=== PATIENT | female | born 1975 | race Caucasian/White ===

== ENCOUNTER 2019-01-28 16:29 | Inpatient (IN) ==
[2019-01-28] MEDS ORDERED: MORPHINE IV ONE ×2 (17:36→19:30)
[2019-01-28] MEDS ORDERED: ZOFRAN IV ONE (17:36)
[2019-01-28] MEDS ORDERED: NS 1,000 ML IV ONE (19:30)
[2019-01-28 19:42] LABS: HEMATOCRIT 39.8 % (37.0-47.0); HEMOGLOBIN 13.1 g/dL (12.0-16.0); MCH 31.3 PG (27-31); MCHC 32.9 g/dL (33-37); MPV 11.2 FL (7.4-10.4); RBC 4.19 XMIL (4.2-5.4); RDW 13.2 % (11.5-14.5); WBC 17.74 X1000 (4.8-10.8)
[2019-01-28 19:51] LABS: INR 0.97; PROTIME 13.7 Seconds (11.0-16.0)
[2019-01-28 19:52] LABS: AGAP 18; ALB/GLOB RATIO 1.5; ALBUMIN 4.1 g/dL (3.5-5.0); ALKALINE PHOSPHATASE 84 U/L (32-104); BUN 19 mg/dL (8-22); CALCIUM 8.8 mg/dL (8.8-10.2); CHLORIDE 100 mmol/L (98-107); COSMO 281; CREATININE 0.5 mg/dL (0.5-0.9); ESTIMATED GFR > 60; GLUCOSE 93 mg/dL (70-104); GOT 11 U/L (10-30); GPT 6 U/L (10-36); POTASSIUM 4.5 mmol/L (3.5-5.1); PTT 24.1 Seconds (22.3-41.8); SODIUM 140 mmol/L (136-145); TCO2 22 mmol/L (25-35); TOTAL BILIRUBIN 0.98 mg/dL (0.20-1.00); TOTAL PROTEIN 6.9 g/dL (6.3-8.3)
[2019-01-28 19:54] LABS: D-DIMER 0.99 ug/mLFEU (0.0-0.52)
[2019-01-28] MEDS ORDERED: CLINDAMYCIN 600 MG/D5W 600 MG/50 ML IVPB IV ONE (23:00)
[2019-01-28] MEDS ORDERED: DILAUDID IV ONE (23:35)
[2019-01-28] MEDS ORDERED: CLINDAMYCIN 600 MG/NS 600 MG/50 ML IVPB IV ONE (23:49)
--- NOTE | 2019-01-29 01:49 | PROVIDER DOCUMENTATION ---
This chart was entered by Effie Rayo Scribe, acting as scribe for Jose Rafael Gongora MD. HPI-Musculoskeletal Pain/Inj - GENERAL Chief Complaint: Edema Stated Complaint: PT HAS HAD PAST STROKE/ARM SWELLING Time Seen by Provider: 01/28/19 16:47 Source: patient - HX OF PRESENT ILLNESS-MUSKULOSKELTAL Nature of Presenting Problem: 43 yof presents to er w/co pt reports pain and swelling in rt arm x 3 days. pt has hx of stroke 08/2018 that has affected the right side of her body, and hx cerebral palsy. Quality of Pain: reports: other (swelling, pain) Severity in ED: severe Onset/Duration: 3 days ago Timing: still present Review of Systems - Adult - REVIEW OF SYSTEMS - ADULT Constitutional: reports: no symptoms reported Eyes: reports: no symptoms reported Ears, Nose, Mouth & Throat: reports: no symptoms reported Cardiovascular: reports: no symptoms reported Respiratory: reports: no symptoms reported Gastrointestinal: reports: no symptoms reported Genitourinary: reports: no symptoms reported Musculoskeletal: reports: see HPI, joint pain (rt arm chronic spasticity), joint swelling (rt proximal forearm and elbow). denies: back pain, muscle weakness, neck pain Integumentary: reports: no symptoms reported Neurological: reports: no symptoms reported Psychiatric: reports: no symptoms reported Endocrine: reports: no symptoms reported Hematologic/Lymphatic: reports: no symptoms reported Allergic/Immunologic: reports: no symptoms reported All Other Systems: Reviewed and Negative Past History - Adult - PAST MEDICAL HISTORY-ADULT Review of Records: reports: Old Records Reviewed, Nursing Assessment Review, Medications Reviewed, Social history reviewed & non-contributory. Major Childhood Illnesses: reports: denies history Cardiovascular: reports: HTN Respiratory: reports: denies history Gastrointestinal: reports: denies history Obstetrical/Gynecological: reports: denies history Genitourinary: reports: denies history Musculoskeletal: reports: denies history Neurological: reports: CVA Psychiatric: reports: anxiety, bipolar, depression Endocrine/Immune: reports: denies history Other Conditions: reports: denies history - PRIOR SURGERIES/PROCEDURES Surgical/Procedure History: reports: orthopedic (extremity) (bilat ankles, left hip) - IMMUNIZATION STATUS Childhood Immunizations: See Nurse Assessment Flu Vaccine: See Nurse Assessment - FAMILY HISTORY Family History: reviewed, not pertinent - SOCIAL HISTORY Smoking: other (former) Substance Use: none/never Physical Exam-Injury Related - Physical Exam-Injury Related Initial Vital Signs Reviewed: Yes General Appearance: alert, severe distress Eyes: PERRL/EOMI, pink conjunctivae Head, Ears, Nose, Mouth & Throat: normocephalic/atraumatic, moist mucous membra deandre Neck: non-tender, full range of motion, supple, normal inspection Respiratory: chest non-tender, lungs clear, normal breath sounds Cardiovascular: tachycardia. negative: bradycardia, extra beats, friction rub Chest/Breast: deferred Abdominal Exam: normal bowel sounds, non tender, soft Female Genitalia/Pelvic Exam: deferred Extremity: inflammation (rt forearm , arm and elbow), swelling (rt forearm , arm and elbow), tenderness (rt forearm , arm and elbow), other. negative: normal range of motion (spasticity in right upper extremity), deformity, erythema Integumentary: normal color, warm/dry Neurologic: motor weakness (chronic right sided spastic paraparesis) Psych/Mental Status: oriented x 3, other (hx cerebal palsy) - Glascow Coma Score Suellen Total: 15 Progress - PLAN OF CARE/RESULTS Progress/Plan/Lab Results: Vital Signs - 8 hr 01/28/19 18:00 01/28/19 18:30 01/28/19 19:00 Temperature Pulse Rate 128 H 127 H 128 H Respiratory Rate 9 L 14 11 L Blood Pressure O2 Sat by Pulse Oximetry 98 96 98 01/28/19 19:30 01/28/19 19:37 01/28/19 20:00 Temperature Pulse Rate 132 H 135 H 131 H Respiratory Rate 17 16 Blood Pressure 142/91 O2 Sat by Pulse Oximetry 97 97 97 01/28/19 20:03 01/28/19 20:30 01/28/19 20:33 Temperature Pulse Rate 127 H 120 H 122 H Respiratory Rate 12 9 L 13 Blood Pressure 133/97 130/98 O2 Sat by Pulse Oximetry 98 98 98 01/28/19 21:00 01/28/19 21:03 01/28/19 21:30 Temperature Pulse Rate 123 H 127 H 128 H Respiratory Rate Blood Pressure 138/100 O2 Sat by Pulse Oximetry 98 98 98 01/28/19 21:33 01/28/19 22:00 01/28/19 22:03 Temperature Pulse Rate 115 H 138 H Respiratory Rate Blood Pressure 138/107 137/97 O2 Sat by Pulse Oximetry 100 91 L 01/28/19 22:30 01/28/19 22:33 01/28/19 22:45 Temperature Pulse Rate 125 H 118 H 122 H Respiratory Rate Blood Pressure 128/89 135/95 O2 Sat by Pulse Oximetry 94 L 94 L 95 01/28/19 22:48 01/28/19 22:49 01/28/19 23:00 Temperature 98.6 F Pulse Rate 119 H 120 H 117 H Respiratory Rate 18 Blood Pressure 135/95 135/95 O2 Sat by Pulse Oximetry 95 94 L 96 01/28/19 23:03 01/28/19 23:30 01/28/19 23:33 Temperature Pulse Rate 117 H 119 H 112 H Respiratory Rate Blood Pressure 138/97 128/89 O2 Sat by Pulse Oximetry 96 95 93 L Laboratory Results - last 24 hr 01/28/19 01/28/19 01/28/19 19:30 19:30 19:30 WBC 17.74 H RBC 4.19 L Hgb 13.1 Hct 39.8 MCV 95.0 MCH 31.3 H MCHC 32.9 L RDW Std Deviation 13.2 Plt Count 343 MPV 11.2 H PT 13.7 INR 0.97 PTT (Actin FS) 24.1 D-Dimer, Quantitative 0.99 H Sodium 140 Potassium 4.5 Chloride 100 Carbon Dioxide 22 L Anion Gap 18 BUN 19 Creatinine 0.5 Estimated GFR/1.73 m2 > 60 BUN/Creatinine Ratio 38 Glucose 93 Calculated Osmolality 281 Calcium 8.8 Total Bilirubin 0.98 AST 11 ALT 6 L Alkaline Phosphatase 84 Total Protein 6.9 Albumin 4.1 Globulin 2.8 Albumin/Globulin Ratio 1.5 Plasma Lactate 01/28/19 22:29 WBC RBC Hgb Hct MCV MCH MCHC RDW Std Deviation Plt Count MPV PT INR PTT (Actin FS) D-Dimer, Quantitative Sodium Potassium Chloride Carbon Dioxide Anion Gap BUN Creatinine Estimated GFR/1.73 m2 BUN/Creatinine Ratio Glucose Calculated Osmolality Calcium Total Bilirubin AST ALT Alkaline Phosphatase Total Protein Albumin Globulin Albumin/Globulin Ratio Plasma Lactate 1.8 Orders Category Date Time Status CBC WITH NO DIFF [HEME] Stat Lab 01/28/19 19:30 Completed COMPREHENSIVE METABOLIC PANEL [CHEM] Stat Lab 01/28/19 19:30 Completed D-DIMER [COAG] Stat Lab 01/28/19 19:30 Completed LACTATE, PLASMA [CHEM] Stat Lab 01/28/19 22:29 Completed PT [PROTIME WITH INR] [COAG] Stat Lab 01/28/19 19:30 Completed PTT [COAG] Stat Lab 01/28/19 19:30 Completed 0.9% Sodium Chloride Inj [Ns] 1,000 ml Med 01/28/19 19:30 Discontinued IV 999 mls/hr Clindamycin 600 mg/D5w Med 01/28/19 23:00 Discontinued 600 mg in 50 ml IV NOW Hydromorphone [Dilaudid] Med 01/28/19 23:35 Discontinued 1 mg IV NOW ONE Morphine Med 01/28/19 17:36 Discontinued 2 mg IV NOW ONE Morphine Med 01/28/19 19:30 Discontinued 2 mg IV NOW ONE Ondansetron [Zofran] Med 01/28/19 17:36 Discontinued 4 mg IV NOW ONE Venous U/S Right Arm Stat Ther 01/28/19 17:28 Completed Result Diagrams: 01/28/19 19:30 01/28/19 19:30 - ULTRASOUND (By Radiology) 1 US Study: Upper Ext (No evidence of DVT in right upper extremity (as per electrocardiogram technician); pending official radiologist report) - CONSULTS/PCP/HOSPITALIST Notification #1 *Consult/PCP/Hospitalist*: Dr. Bridges Time Discussed: 00:58 Consult Disposition: Admit Departure - Departure Date of Disposition Decision: 01/29/19 Time of Disposition Decision: 00:59 DIAGNOSIS: Swelling of arm Cellulitis Qualifiers: Site of cellulitis: extremity Site of cellulitis of extremity: upper extremity Laterality: right Qualified Code(s): L03.113 - Cellulitis of right upper limb Sepsis Qualifiers: Sepsis type: sepsis due to unspecified organism Qualified Code(s): A41.9 - Sepsis, unspecified organism Disposition: ADMITTED INPATIENT 09 Certified Medical Emergency: Emergent Condition: Serious - Critical Care Note This patient required my direct & personal management of CC.: No Attestation - Physician/ MALA Attestation Patient care was provided by Advanced Practice Provider:: No The physician spent face to face time with patient:: Yes Advanced Practice Provider documentation review:: Supervising physician onsite and consulted in the evaluation and care of this patient. The physician did have a face to face encounter with the patient. This chart was documented by the indicated scribe, (Effie Rayo Scribe) and accurately reflects the services I performed and decisions made by Rolan reyes Kofi X., MD, as attested by the provider's signature.
[2019-01-29] MEDS ORDERED: TYLENOL PO PRN (06:49)
[2019-01-29] MEDS ORDERED: ZOFRAN IV PRN (06:49)
[2019-01-29 07:04] LABS: BASO# 0.03 X1000 (0.0-0.2); BASO% 0.3 % (0.0-0.8); EOS# 0.17 X1000 (0.0-0.7); EOS% 1.9 % (0.0-10.0); HEMATOCRIT 33.6 % (37.0-47.0); HEMOGLOBIN 10.7 g/dL (12.0-16.0); LYMPH# 2.04 X1000 (1.2-3.4); LYMPH% 22.3 % (20.5-51.1); MCH 30.7 PG (27-31); MCHC 31.8 g/dL (33-37); MCV 96.6 FL (81-99); MONO# 0.77 X1000 (0.11-0.59); MONO% 8.4 % (1.7-9.3); MPV 10.5 FL (7.4-10.4); NEUT# 6.13 X1000 (1.4-6.5); NEUT% 67.1 % (42.2-75.2); PLT 306 X1000 (130-400); RBC 3.48 XMIL (4.2-5.4); RDW 13.1 % (11.5-14.5); WBC 9.14 X1000 (4.8-10.8)
[2019-01-29] MEDS: PROTONIX IV SCH (07:23)
[2019-01-29] MEDS: NS 1,000 ML IV SCH ×2 (07:23→17:37)
[2019-01-29 07:35] LABS: AGAP 11; BUN 16 mg/dL (8-22); CALCIUM 9.1 mg/dL (8.8-10.2); CHLORIDE 105 mmol/L (98-107); COSMO 284; CREATININE 0.5 mg/dL (0.5-0.9); ESTIMATED GFR > 60; GLUCOSE 122 mg/dL (70-104); POTASSIUM 4.4 mmol/L (3.5-5.1); SODIUM 141 mmol/L (136-145); TCO2 25 mmol/L (25-35)
[2019-01-29 07:36] LABS: URINE SOURCE CATH
[2019-01-29 07:39] LABS: BILIRUBIN URINE NEGATIVE (NEGATIVE); BLOOD URINE SMALL (NEGATIVE); COLOR ORANGE; GLUCOSE URINE NEGATIVE (NEGATIVE); KETONE URINE NEGATIVE (NEGATIVE); LEUKOCYTES URINE MODERATE (NEGATIVE); NITRITE URINE POSITIVE (NEGATIVE); PH URINE 6.5; PROTEIN URINE 30 mg/dL (NEGATIVE); SP GRAVITY URINE 1.025; TURBIDITY URINE TURBID (CLEAR); UROBILINOGEN URINE NORMAL (NORMAL)
[2019-01-29 07:42] LABS: UR EPITHELIAL CELLS <10 /HPF (<10); URINE BACTERIA 3+ /HPF; URINE WBC 20-40 /HPF (<10)
[2019-01-29] MEDS: MORPHINE IV PRN ×3 (07:42→17:37)
[2019-01-29 08:08] LABS: URINE CASTS NONE SEEN; URINE CRYSTALS CA OXALATE PRESENT; URINE SMALL ROUND CELLS NONE SEEN; URINE YEAST NONE SEEN
--- NOTE | 2019-01-29 08:28 | HISTORY AND PHYSICAL ---
PRIMARY CARE PROVIDER: KORINA Nelson DATE AND TIME: 01/29/2019 at 0545. CHIEF COMPLAINT: Right arm and right leg pain and swelling. HISTORY OF PRESENT ILLNESS: Ms. Pereira is a 43-year-old female who does have a history of cerebral palsy as well as a stroke that has affected her right side. The patient does have loss of most of her motor control as well as some decreased sensation on her right upper and lower extremities. This has also affected her speech. The patient does have some expressive aphasia. She is able to speak simple 1 or 2 word answers, though does have difficulty with expressing herself when it comes to saying more than a few words at a time. According to the ER note as well as what I gathered from the patient, a few days ago, she did begin to have swelling and pain in her right upper extremity and right lower extremity. She did report to me that her right leg does stay more swollen than her left, though it is more swollen than usual. She denied any headache, dizziness, shortness of breath or chest pain. She denies any abdominal pain, nausea, vomiting or diarrhea. The patient does report that due to her stroke, she is not able to control her bladder or bowels. She denied any fever, body aches or chills. Upon evaluation in the ER, the patient was found to be tachycardic upon arrival. Initial vitals were temperature of 99, heart rate 150, respirations 18, blood pressure was 135/99, oxygen saturation was 96%. The patient did have a low grade fever, though was also in quite a bit of pain upon arrival as well. She was noted to have leukocytosis with a white blood cell count of 17,740. Her D-dimer was slightly elevated at 0.99. They did perform a venous Doppler or her right upper extremity which was reportedly negative for DVT. The patient does have warmth, swelling, pain and some slight erythema noted to her right upper extremity. She does have swelling, pain and tenderness noted to her right lower extremity. The patient reports this is mainly in her thigh area. At this time, the patient will be admitted for further treatment and evaluation of right upper extremity cellulitis. REVIEW OF SYSTEMS: A 14-point review of systems was conducted with the patient, and all were negative except for pertinent positives mentioned in the above HPI. PAST MEDICAL HISTORY: 1. History of cerebral palsy. 2. History of a stroke in 08/2018. The patient stated that this was an ischemic stroke. She denied having any known stroke or bleeding in her brain. 3. Anxiety. 4. Depression. 5. Bipolar. 6. Hypertension. PAST SURGICAL HISTORY: 1. Left hip surgery. 2. Bilateral ankle surgery. SOCIAL HISTORY: The patient is a former smoker. There is no known alcohol or illicit drug use. FAMILY HISTORY: Unable to be obtained at this time due to the patient's current condition. The patient is alert and oriented x4, though she does have difficulty with speech. ALLERGIES: The patient has allergy to latex and penicillins. HOME MEDICATIONS: 1. Aspirin 81 mg p.o. daily. 2. Calcium carbonate 600 mg p.o. daily. 3. Diazepam 5 mg p.o. b.i.d. 4. Folic acid 0.4 mg p.o. daily. 5. Melatonin 3 mg p.o. daily. 6. Vitamin B1 100 mg 2 tablets p.o. daily. DIAGNOSTIC DATA: White blood cell count is 17,740, hemoglobin 13.1, hematocrit 39.8, platelet count is 343. PT is 13.7. INR is 0.97. PTT is 24.1. D-dimer is 0.99. Sodium is 140, potassium 4.5, chloride 100, serum bicarb is 22, BUN is 19, creatinine 0.5 with a GFR greater than 60, glucose 93, calcium 8.8. Liver function tests within normal limits. Plasma lactate was 1.8. Venous Doppler of the right upper extremity showed no findings of a DVT. This was per the ER physician's documentation and verbal report. Pending diagnostic studies at this time are blood cultures, urinalysis, venous Doppler of the right lower extremity and EKG. PHYSICAL EXAMINATION: VITAL SIGNS: Temperature is 97.7, heart rate 98, respirations 20, blood pressure is 103/70 with a MAP of 81, oxygen saturation is 96% on room air. GENERAL: Ms. Pereira is a pleasant 43-year-old female. She was resting on the ER stretcher. She was in no acute distress. She was awake and alert. The patient does have some difficulty with speech, though is able to answer best with short 1 to 2 word answers. She can answer questions appropriately. She was alert and oriented to person, place, time and situation. HEENT: Head is atraumatic and normocephalic. Pupils are equal, round and reactive to light, were 3 mm bilaterally and brisk. Oral mucosa is moist. Oropharynx was clear. NECK: Supple. Trachea midline. CARDIOVASCULAR: The patient has normal S1 and S2. No murmurs, gallops or rubs appreciated, though slightly tachycardic rate that is regular. PULMONARY: The patient has symmetrical chest expansion bilaterally. Lung sounds are clear to auscultation in bilateral full rascon. ABDOMEN: Soft, nontender and nondistended. Bowel sounds are present in all 4 quadrants, were slightly hypoactive. EXTREMITIES: The patient does have some contracture noted to the lower part of her right upper extremity mainly in her hand and wrist, though her right upper extremity in the humeral area is significantly more swollen than the right. This area does have warmth, tenderness and some slight erythema noted. Also, her right lower extremity is more swollen than her left as well. The patient states that this is present usually but is worse than normal. She does have some warmth, tenderness and pain noted to her thigh area, though she does have loss of some motor control and movement in her right side as well as some decreased sensation secondary to her stroke. The patient does have total motor control and movement on her left side, and she does have normal sensation on this side as well. Radial pulses were 2+ bilaterally. Pedal pulses were 2+ bilaterally as well. INTEGUMENTARY: The patient's skin is pink, warm and dry. NEUROLOGICAL: The patient is alert and oriented to person, place, time and situation. As perviously mentioned, she has had a stroke and does have deficits on her right side of some loss of some motor control and movement. She also does have decreased sensation on her right side. Her left side is not affected and does not have any deficits noted. The patient is able to speak best with 1 to 2 word answers. She does tend to have more difficulty with expressive aphasia with longer sentences, though she was able to answer questions appropriately. ASSESSMENT AND PLAN: 1. Right upper extremity cellulitis. For treatment of this, we have placed the patient on antibiotic with clindamycin 600 mg IV q.8 hours. We are awaiting blood cultures at this time. We have also placed her with probiotic of Culturelle as well. Venous Doppler of the right upper extremity was negative for any DVT, though the patient is having some swelling, pain and tenderness in her right lower extremity as well. Her D-dimer was elevated. We will go ahead and obtain a venous Doppler of this extremity also, and we are awaiting those results. 2. Leukocytosis. This is likely related to her cellulitis in her right upper arm, though we are going to order a urinalysis for further evaluation. The patient unfortunately does have loss of control of the bladder and bowels secondary to her stroke. We are awaiting this study at this time. We will continue to follow. 3. Rule out possible DVT of the right lower extremity. As mentioned above, we have ordered a venous Doppler of right lower extremity. We are awaiting these results. 4. GI prophylaxis will be provided with Protonix 40 mg IV q.24 hours. 5. DVT prophylaxis will be provided with Lovenox 40 mg subcutaneously q.24 hours. 6. History of a stroke which affected her right side. She does have loss of some motor control and some decreased sensation on this side. We will continue her aspirin. The patient has been placed on the Medical Floor with telemetry. We will do vital signs q.4 hours. We will do strict intake and output, incentive spirometry. We will repeat a CBC and BMP later on this morning. Further orders and recommendations pending hospital course, diagnostic studies and physician evaluation. Dictated by KORINA Quinonez for Heath Valadez MD Addendum: Patient seen and examined by myself. Agree with KORINA note. It reflects my assessment and plan. Patient is being admitted to hospital for right upper extremity cellulitis. Will start broad spectrum antibiotics and will check CBC daily. cc: Heath Valadez MD [facility]
--- NOTE | 2019-01-29 08:36 | EKG Report ---
Test Performed on : 01/29/2019 08:21:12 AM Test Reason : Tachycardia Blood Pressure : / mmHG Vent. Rate : 107 BPM Atrial Rate : 107 BPM P-R Int : 152 ms QRS Dur : 062 ms QT Int : 336 ms P-R-T Axes : 038 034 051 degrees QTc Int : 448 ms Sinus tachycardia. Otherwise normal ECG No previous ECGs available Unconfirmed Result
[2019-01-29] MEDS: VALIUM PO SCH ×2 (09:17→21:02)
[2019-01-29] MEDS: LOVENOX SUBQ SCH (09:17)
[2019-01-29] MEDS: CALTRATE 600 PO SCH (09:17)
[2019-01-29] MEDS: CULTURELLE PO SCH ×2 (09:17→21:02)
[2019-01-29] MEDS: ASPIRIN PO SCH (09:17)
[2019-01-29] MEDS: VITAMIN B-1 PO SCH (09:25)
[2019-01-29] MEDS: FOLIC ACID PO SCH (09:25)
[2019-01-29] MEDS: CLINDAMYCIN 600 MG/D5W 600 MG/50 ML IVPB IV SCH ×2 (09:29→17:36)
--- NOTE | 2019-01-29 18:50 | PROGRESS NOTE ---
DATE: 01/29/2019 SUBJECTIVE: Today, Ms. Pereira refers to be doing a little better but she still complains of a lot of pain in the right upper extremity. Both mom and dad were at the bedside at the time of the encounter. OBJECTIVE: Vital signs: Blood pressure is 94/63, pulse of 81, respiration is 13, temperature is 97.7 degrees. General: Ms. Pereira is a 43-year-old female. She is in bed. She is not in any cardiopulmonary distress. Mucosa is pink and moist. Anicteric. Acyanotic. Neck: Supple. Chest: Good air entry bilateral. There were no crepitations. No rhonchi. Cardiovascular: Regular rate and rhythm. There are no murmurs, no rubs, no gallops. Abdomen: Soft, nontender. Extremities: No pedal edema. Neurologic: The patient is awake, alert. She is oriented. She does have a right-side hemiplegia. She also has exaggerated DTRs in both lower extremities. Musculoskeletal: The right arm is remarkably more swollen. It is tender to touch. It is not really warm and there are no erythematous changes. It is somehow a little bit more yellowish. LABORATORY DATA: WBC is 9.14, hemoglobin is 10.7, platelet count of 306,000. Chemistry is reviewed, is completely normal. Urinalysis shows nitrate is positive. MEDICATIONS: Have all been reviewed. ASSESSMENT: 1. Right upper extremity swelling. Etiology is unclear. It does not really look like it is infectious. Doppler ultrasound was also negative. It is possible that this could be a trauma causing maybe a compartment syndrome. We are going to get a CT scan of the right upper extremity to get a better idea since the Doppler was completely unremarkable I have been told. 2. Leukocytosis, improved. 3. Urinary tract infection. The patient is currently on antibiotics and we are waiting on the culture report. 4. History of cerebrovascular accident with right-sided hemiplegia. 5. History of cerebral palsy. 6. Social issues. I understand the mother, who stays with the patient, has herself some health issues to deal with. Both the father and the mother at the bedside were wishing to have social service consult to discuss long-term care for Ms. Pereira. Will consult social work. cc: Souleymane Sam MD
--- NOTE | 2019-01-29 19:43 | Diag Imaging Result Doc PS360 ---
EXAM: CT EXT UPPER RIGHT W/CONT 01/29/2019 HISTORY: right arm swelling r/o abscess vs compartment syndr TECHNIQUE: CT of the right arm COMMENT: There is generalized subcutaneous edema in the forearm and lower upper arm. There is no evidence of venous thrombosis or arterial occlusion. There is no evidence of acute bony abnormality. There is no evidence of focal fluid collection or gas collection to suggest abscess. The possibility of cellulitis cannot be excluded. IMPRESSION: Edema/cellulitis in the superficial subcutaneous portions of the arm particularly the distal upper arm and proximal forearm. No evidence of arterial or venous occlusion. Electronically signed by Lenny Kim 01/29/2019 7:41 PM
[2019-01-29] MEDS: MELATONIN PO SCH (21:02)
[2019-01-30] MEDS: CLINDAMYCIN 600 MG/D5W 600 MG/50 ML IVPB IV SCH ×3 (01:34→16:58)
[2019-01-30] MEDS: MORPHINE IV PRN (01:34)
[2019-01-30] MEDS: NS 1,000 ML IV SCH (01:34)
[2019-01-30] MEDS: SODIUM CHLORIDE 0.9% INJ SCH (06:40)
[2019-01-30] MEDS: PROTONIX IV SCH (06:40)
--- NOTE | 2019-01-30 08:12 | Extremity Venous Study ---
PROCEDURE NAME: Venous U/S Right Arm - 01/28/2019 REQUESTING PHYSICIAN: Dr. Gongora in the Emergency Department. MACHINE ETCHER: Loni. INDICATIONS: 1. Edema. 2. Right-sided CVA. 3. Contracture of the arm. EQUIPMENT: [employer] E9 ultrasound system 9 L-D transducer. FINDINGS: Images in the right upper extremity venous systems were obtained in both sagittal and transverse planes. Doppler was used to evaluate veins for spontaneity, phasicity, respiratory excursion, and digital augmentation. RESULTS: Normal venous compression. Normal venous flow. No obvious superficial or deep venous thrombosis noted. INTERPRETATION: No obvious superficial or deep venous thrombosis noted. cc: MD Jose Rafael Ashraf MD
--- NOTE | 2019-01-30 08:20 | Extremity Venous Study ---
PROCEDURE NAME: Venous U/S Right Leg - 01/29/2019 REQUESTING PHYSICIAN: COLLEGE TUTOR: Loni. INDICATIONS: Edema, right leg. EQUIPMENT: [employer] E9 ultrasound system, 9L-D transducer. FINDINGS: Images of the right lower extremity venous system with comparison shot to the left common femoral vein were obtained in both sagittal and transverse planes. Doppler was used to evaluate veins for spontaneity, phasicity, respiratory excursion, and digital augmentation. RESULTS: Normal venous compression, normal venous flow. No obvious superficial or deep venous thrombosis noted. INTERPRETATION: Essentially normal right lower extremity venous study. cc: MD NAVI Ashraf
[2019-01-30] MEDS: VITAMIN B-1 PO SCH (09:09)
[2019-01-30] MEDS: FOLIC ACID PO SCH (09:09)
[2019-01-30] MEDS: CALTRATE 600 PO SCH (09:09)
[2019-01-30] MEDS: CULTURELLE PO SCH ×2 (09:09→21:46)
[2019-01-30] MEDS: LOVENOX SUBQ SCH (09:10)
[2019-01-30] MEDS: ASPIRIN PO SCH (09:10)
[2019-01-30] MEDS: VALIUM PO SCH ×2 (09:13→21:46)
--- NOTE | 2019-01-30 14:10 | PROGRESS NOTE ---
DATE: 01/30/2019 SUBJECTIVE: Ms. Pereira was admitted on 01/29/2019. She is followed by KORINA Nelson with right arm and right leg swelling was her complaint. A 43-year-old female has a history of cerebral palsy as well as a stroke which affected her right side. The patient does have loss of most of her motor control as well as some decreased sensation in the right upper and lower extremities, and also has affected her speech. The patient does have some expressive dysphasia. She is able to speak 1 or 2 words at a time. A few days ago she began noticing swelling in the right arm right lower extremity. She does report that her right leg does stay more swollen than her left on a usual basis. PAST MEDICAL HISTORY: 1. History of cerebral palsy. 2. History of stroke in 2018, stated it was an ischemic stroke. She does not have any known stroke or bleeding in her brain. 3. Anxiety. 4. Depression. 5. Bipolar. 6. Hypertension. PAST SURGICAL HISTORY: 1. Left hip surgery. 2. Bilateral ankle surgery. She was admitted with right upper extremity cellulitis. They have started her on clindamycin 600 mg IV q.8. Venous Doppler of the right arm was negative for DVT. She still has a good deal of swelling and lymphedema in that right arm. She had some leukocytosis. The erythema seems to be better. I do not see any discoloration in the right arm at this point. Still got a good deal of edema and pitting edema especially on the medial aspect of the upper arm and down into the elbow. PHYSICAL EXAMINATION: Temperature 97.7 degrees, pulse 80, respirations 13, and blood pressure 106/75. HEENT: Pupils are equal. Lungs: Clear in all lung rascon. Cardiovascular: Regular rhythm and rate without murmur or S3. ASSESSMENT AND PLAN: 1. Right upper extremity swelling and lymphedema, originally looked like infectious. Given her antibiotics, the discoloration has gone away. It could be trauma causing compartment syndrome, but CT of the right arm was ordered. Doppler was unremarkable for DVT. I will try and elevate that right arm. 2. Leukocytosis, improved. 3. Urinary tract infection. Continue antibiotics. 4. Cerebrovascular accident and right-sided hemiplegia. 5. History of cerebral palsy. 6. Social issues. her mother who stays with the patient, and has some health issues as well, so would like some help with Ms. Pereira's care. REVIEW OF HER ORDERS: I do not know that I see any change. She is on aspirin 81 mg a day, calcium carbonate 600 mg a day, clindamycin 600 mg IV q.8 hours, folic acid 0.4 mg a day, lactobacillus 1 b.i.d., melatonin 3 mg at bedtime, Protonix 40 mg q.24 hours and thiamine 200 mg p.o. daily. cc: Joseph Thomson MD MTDD
[2019-01-30] MEDS: MELATONIN PO SCH (21:46)
[2019-01-31] MEDS: CLINDAMYCIN 600 MG/D5W 600 MG/50 ML IVPB IV SCH ×3 (02:00→17:27)
[2019-01-31] MEDS: PROTONIX IV SCH (06:18)
[2019-01-31] MEDS: SODIUM CHLORIDE 0.9% INJ SCH (06:18)
[2019-01-31] MEDS: FOLIC ACID PO SCH (09:41)
[2019-01-31] MEDS: CULTURELLE PO SCH ×2 (09:41→22:09)
[2019-01-31] MEDS: ASPIRIN PO SCH (09:42)
[2019-01-31] MEDS: CALTRATE 600 PO SCH (09:42)
[2019-01-31] MEDS: VITAMIN B-1 PO SCH (09:42)
[2019-01-31] MEDS: VALIUM PO SCH ×2 (09:42→22:09)
[2019-01-31] MEDS: LOVENOX SUBQ SCH (09:45)
--- NOTE | 2019-01-31 17:27 | PROGRESS NOTE ---
DATE: 01/31/2019 SUBJECTIVE: The patient states she is about the same. Her right arm seems to have a little less swelling. She still has not been able to keep it elevated on pillow. She has a contracture in that right elbow and keeps it bent at a greater than 90 degree angle most of the time. OBJECTIVE: Vital Signs: Temperature 97.6, pulse 100, respirations 15, blood pressure 124/89. Eyes: Pupils are equal and round. Lungs: Are clear in all lung rascon. Cardiovascular: Regular rhythm and rate without murmur or S3. Abdomen: Soft, nondistended. Extremities: No pedal edema. ASSESSMENT AND PLAN: 1. Right upper extremity swelling, lymphedema, and I think is just positional Doppler. No sign of DVT and CT scan was unremarkable. 2. Leukocytosis, improved. 3. Urinary tract infection which I think is well treated. 4. Cerebrovascular accident with right-sided hemiplegia. 5. History of cerebral palsy. Social history: Discharge planning is trying to find a place for her. CT of the upper arm showed some edema in that superficial subcutaneous portions of the arm, particularly in the distal upper arm and proximal forearm, but no evidence of venous occlusion. Clinically, there is no redness or sign of cellulitis. So, we will continue present measures. I am going to start physical therapy, see if they have some ideas to help with that edema in her arm and see if we can help with the contracture. This will get occupational therapy as well. cc: Joseph Thomson MD
[2019-01-31] MEDS: MELATONIN PO SCH (22:09)
[2019-02-01] MEDS: CLINDAMYCIN 600 MG/D5W 600 MG/50 ML IVPB IV SCH ×3 (00:37→17:59)
[2019-02-01] MEDS: PROTONIX IV SCH (07:43)
[2019-02-01] MEDS: CULTURELLE PO SCH ×2 (08:59→21:45)
[2019-02-01] MEDS: VALIUM PO SCH ×2 (08:59→21:45)
[2019-02-01] MEDS: CALTRATE 600 PO SCH (09:00)
[2019-02-01] MEDS: ASPIRIN PO SCH (09:00)
[2019-02-01] MEDS: LOVENOX SUBQ SCH (09:00)
[2019-02-01] MEDS: FOLIC ACID PO SCH (09:00)
[2019-02-01] MEDS: VITAMIN B-1 PO SCH (09:00)
--- NOTE | 2019-02-01 13:32 | PROGRESS NOTE ---
DATE: 02/01/2019 SUBJECTIVE: Ms. Pereira right arm and has a little less swelling in the medial aspect of the arm, so it seems to be going down a little bit. No sign of erythema. She remains afebrile. She was eating her lunch for continue physical therapy. Her sister was at the bedside and wanted know if we are going to give her more for pain. OBJECTIVE: Temp 98 degrees, pulse 94, respirations 13, blood pressure 118/86. Pupils are equal round. Lungs are clear in all lung rascon. Cardiovascular regular rate without murmur or S3. Abdomen is soft. Skin is warm and dry. LAB: No new lab. Lab reviewed. Her white count initially was elevated but come down to 9140, hematocrit was 33, platelet count 306,000. Electrolytes: On the sodium was 141, potassium 4.4, chloride 105. BUN 16, creatinine 0.5. ASSESSMENT AND PLAN: 1. Right upper extremity swelling, lymphedema. I think this is just positional from right arm contracture, so I have talked to the sister and patient. It is important we try and get some range of motion in her arm and reposition it and see if we can elevate it on some pillows. Right now, that is uncomfortable for her. She has no sign of DVT or mass or mechanical obstruction in the right arm to the venous return, but I think it is her contractures and she keeps her right arm at a very hyper acute angle and it is very stiff for her. 2. Leukocytosis, improved. I think that was just stress demargination. 3. Urinary tract infection. Well treated. 4. History of cerebrovascular accident with right-sided hemiplegia. 5. History of cerebral palsy. We are looking for placement. Her sister says she cannot take care of her. For the last 4 or 5 months I think she is lived with her sister and so we will look for placement possibilities. cc: Joseph Thomson MD
[2019-02-01] MEDS: MELATONIN PO SCH (21:45)
[2019-02-02] MEDS: CLINDAMYCIN 600 MG/D5W 600 MG/50 ML IVPB IV SCH ×3 (01:37→11:00)
[2019-02-02] MEDS: MORPHINE IV PRN ×2 (01:44→10:41)
[2019-02-02] MEDS: PROTONIX PO SCH (06:27)
[2019-02-02] MEDS: CALTRATE 600 PO SCH ×2 (10:39→11:00)
[2019-02-02] MEDS: CULTURELLE PO SCH ×3 (10:40→21:41)
[2019-02-02] MEDS: VALIUM PO SCH ×3 (10:40→21:40)
[2019-02-02] MEDS: FOLIC ACID PO SCH ×2 (10:40→10:59)
[2019-02-02] MEDS: ASPIRIN PO SCH ×2 (10:40→11:00)
[2019-02-02] MEDS: VITAMIN B-1 PO SCH ×2 (10:40→10:58)
[2019-02-02] MEDS: LOVENOX SUBQ SCH ×2 (10:42→10:57)
--- NOTE | 2019-02-02 14:32 | PROGRESS NOTE ---
DATE: 02/02/2019 SUBJECTIVE: Ms. Pereira' arm is better. The swelling has gone down. She is elevating on pillows. She is not eating much. Her sister is at the bedside. They were kind of fussing at each other. OBJECTIVE: Vital Signs: Remains afebrile, temperature 97.5 degrees, pulse 76, respirations 20, blood pressure 101/68. HEENT: Pupils are equal and round. Lungs: Clear in all lung rascon. Cardiovascular: Regular rhythm and rate without murmur or S3. Abdomen: Soft. Skin: Warm and dry. ASSESSMENT AND PLAN: 1. Right upper extremity swelling, lymphedema. I think it is positional with her right arm contracture impeding venous return. She looks better. Swelling has gone down. Continue physical therapy. 2. Leukocytosis has resolved. 3. Urinary tract infection, questionable infection, has been treated. 4. Cerebrovascular accident with right-sided hemiplegia. Aware. 5. History of cerebral palsy. 6. Discharge placement. We are looking for a facility that can care for her. Family cannot take care of her. DISCHARGE MEDICATIONS: 1. Aspirin 81 mg a day. 2. Calcium carbonate 600 mg a day. 3. Clindamycin 600 mg IV q.8. I think we can stop that. 4. Valium 5 mg b.i.d. 5. Folic acid 4 mg a day. 6. Lactobacillus rhamnosus 1 b.i.d. 7. Melatonin 3 mg at bedtime. 8. Protonix 40 mg p.o. daily. 9. Thiamine 200 mg p.o. daily. cc: Joseph Thomson MD
[2019-02-02] MEDS: MELATONIN PO SCH (21:41)
[2019-02-03] MEDS: PROTONIX PO SCH (06:13)
[2019-02-03] MEDS: CULTURELLE PO SCH ×2 (10:08→21:14)
[2019-02-03] MEDS: ASPIRIN PO SCH (10:08)
[2019-02-03] MEDS: VITAMIN B-1 PO SCH (10:09)
[2019-02-03] MEDS: LOVENOX SUBQ SCH (10:09)
[2019-02-03] MEDS: FOLIC ACID PO SCH (10:09)
[2019-02-03] MEDS: CALTRATE 600 PO SCH (10:09)
[2019-02-03] MEDS: VALIUM PO SCH ×2 (10:09→21:14)
--- NOTE | 2019-02-03 11:38 | PROGRESS NOTE ---
DATE: 02/03/2019 SUBJECTIVE: Ms. Pereira is sleeping comfortably, easy to arouse. She is much more comfortable. The swelling in her right arm is really diminished. OBJECTIVE: Temperature 97.5 degrees, pulse 74, respirations 16, blood pressure 106/73.HEENT: Pupils are equal round. Lungs: Clear in all lung rascon. Cardiovascular: Regular rhythm and rate without murmur or S3. Abdomen: Soft. Skin: Warm and dry. ASSESSMENT AND PLAN: 1. Right upper extremity swelling and lymphedema. I think this is more positional, is improving as we elevate her right arm and encouraged her to work on range of motion on that side. 2. Leukocytosis, resolved. 3. Urinary tract infection which has been treated. 4. Cerebrovascular accident on the right side with hemiplegia on the right side. Aware. 5. History of cerebral palsy. 6. Hoping to find a place for discharge placement. Her sister cannot take care of her, she has no family to care for her right now. We stopped her antibiotic. REVIEW OF HER MEDICATION: She is still on thiamine 200 mg a day. Continue present medication. Continue physical therapy. cc: Joseph Thomson MD
[2019-02-03] MEDS: MELATONIN PO SCH (21:14)
[2019-02-04] MEDS: PROTONIX PO SCH (06:29)
[2019-02-04] MEDS: FOLIC ACID PO SCH (09:28)
[2019-02-04] MEDS: ASPIRIN PO SCH (09:28)
[2019-02-04] MEDS: VITAMIN B-1 PO SCH (09:29)
[2019-02-04] MEDS: VALIUM PO SCH ×2 (09:29→21:11)
[2019-02-04] MEDS: CULTURELLE PO SCH ×2 (09:29→21:11)
[2019-02-04] MEDS: CALTRATE 600 PO SCH (09:30)
[2019-02-04] MEDS: LOVENOX SUBQ SCH (09:30)
--- NOTE | 2019-02-04 13:28 | PROGRESS NOTE ---
DATE: 02/04/2019 SUBJECTIVE: Ms. Pereira is feeling comfortable. I repositioned her pillow on her arm. The swelling has gone down in the right arm. OBJECTIVE: Vital Signs: Temperature 97.7 degrees, pulse 85, respirations 20, blood pressure 112/75. HEENT: Pupils are equal. Neck: No distended neck veins. Lungs: Clear. Cardiovascular: Regular rhythm and rate without murmur or S3. No pedal edema. Neurologic: She has the right-sided hemiparesis with right arm contracture. She has difficulty finding her words, but she is oriented x3. Knows where she is and understands what is going on around her. ASSESSMENT AND PLAN: 1. Right upper extremity swelling and lymphedema which is more positional. The swelling has gone down well with elevating the right arm and trying to do some physical therapy with that arm. 2. Leukocytosis when she presented, has resolved. 3. Urinary tract infection, treated. 4. Cerebrovascular accident last August with right-sided hemiplegia and expressive aphasia. 5. History of cerebral palsy. 6. Waiting on discharge placement. Her family reports they cannot care for her so we are looking for placement opportunities. Continue current medications. cc: Joseph Thomson MD
[2019-02-04] MEDS: MELATONIN PO SCH (21:11)
[2019-02-05] MEDS: PROTONIX PO SCH (06:10)
[2019-02-05] MEDS: VITAMIN B-1 PO SCH (08:56)
[2019-02-05] MEDS: FOLIC ACID PO SCH (08:56)
[2019-02-05] MEDS: CULTURELLE PO SCH ×2 (08:57→20:39)
[2019-02-05] MEDS: CALTRATE 600 PO SCH (08:57)
[2019-02-05] MEDS: ASPIRIN PO SCH (08:57)
[2019-02-05] MEDS: LOVENOX SUBQ SCH (08:57)
[2019-02-05] MEDS: VALIUM PO SCH ×2 (09:18→20:39)
[2019-02-05] MEDS: MORPHINE IV PRN (09:19)
--- NOTE | 2019-02-05 17:51 | PROGRESS NOTE ---
DATE: 02/05/2019 SUBJECTIVE: Ms. Pereira is feeling a little better. The right arm has much less swelling. I did reposition her arm. She reported that she is comfortable, and seems to be getting a little stronger. She is eating a little bit. OBJECTIVE: Temperature 98 degrees, pulse 86, respirations 17, and blood pressure 112/86. Pupils are equal and round. Lungs are clear in all lung rascon. Cardiovascular exam with regular rhythm and rate without murmur or S3. Abdomen is soft. Skin is warm and dry. ASSESSMENT AND PLAN: 1. Right upper extremity swelling and lymphedema. There is more positional swelling that has gone down and doing better with physical therapy. 2. Leukocytosis on presentation, resolved. 3. Urinary tract infection, has been treated. 4. Cerebrovascular accident back in August with right-sided hemiplegia and expressive aphasia which is stable. 5. History of cerebral palsy. 6. Discharge planning is going to be difficult trying to find a place for her to go. Her family cannot care for her so waiting on discharge plans. 7. Review of her orders: I do not see any change at this point. cc: Joseph Thomson MD
[2019-02-05] MEDS: MELATONIN PO SCH (20:39)
[2019-02-06] MEDS: LOVENOX SUBQ SCH (08:42)
[2019-02-06] MEDS: FOLIC ACID PO SCH (08:42)
[2019-02-06] MEDS: VITAMIN B-1 PO SCH (08:43)
[2019-02-06] MEDS: CULTURELLE PO SCH ×2 (08:43→21:55)
[2019-02-06] MEDS: VALIUM PO SCH ×2 (08:43→21:54)
[2019-02-06] MEDS: PROTONIX PO SCH (08:43)
[2019-02-06] MEDS: ASPIRIN PO SCH (08:43)
[2019-02-06] MEDS: CALTRATE 600 PO SCH (08:43)
--- NOTE | 2019-02-06 14:19 | PROGRESS NOTE ---
DATE: 02/06/2019 INTERVAL HISTORY: The right upper extremity swelling remains improved. Complains only of some burning or pins and needles discomfort in the right upper extremity. No acute events overnight. REVIEW OF SYSTEMS: A 12 point review of systems negative except as per Interval History. VITALS: T-max 98.4 degrees, pulse 88, respirations 18, blood pressure 112/79, O2 saturation 98% on room air. PHYSICAL EXAMINATION: General: No acute distress. Vitals: As above. HEENT: Normocephalic, atraumatic. Moist mucus membranes. Neck: No cervical adenopathy. Cardiovascular: Regular rate and rhythm. No murmurs, rubs, or gallops. Pulmonary: Clear to auscultation bilaterally. Abdomen: Soft, nontender, nondistended. Bowel sounds positive. Extremities: Peripheral pulses intact. Some mild contracture of the right upper extremity. No clubbing, cyanosis, or edema. Neurologic: The patient with some mild expressive aphasia, but is eventually able to get her words out. Right side hemiplegia unchanged with some mild contractures. No new focal deficits identified. Psychiatric: Normal mood and affect. Awake, alert, and oriented x3. Skin: No new rashes or lesions defined. ASSESSMENT AND PLAN: 1. Right upper extremity cellulitis and edema: Erythema and infection appear resolved. Swelling nearly resolved. Continue physical therapy as needed. Monitoring off antibiotics. 2. Urinary tract infection: Status post a course of antibiotics. 3. Right hemiplegia: Secondary to stroke last August. Also with mild to moderate expressive aphasia which is stable. DISPOSITION: Efforts at placement are ongoing. Stable for discharge whenever placement is obtained.
[2019-02-06] MEDS: MELATONIN PO SCH (21:55)
[2019-02-07] MEDS: PROTONIX PO SCH (06:54)
[2019-02-07] MEDS: VALIUM PO SCH ×2 (08:33→22:08)
[2019-02-07] MEDS: VITAMIN B-1 PO SCH (08:33)
[2019-02-07] MEDS: ASPIRIN PO SCH (08:33)
[2019-02-07] MEDS: LOVENOX SUBQ SCH (08:33)
[2019-02-07] MEDS: CULTURELLE PO SCH ×2 (08:33→22:07)
[2019-02-07] MEDS: FOLIC ACID PO SCH (08:33)
[2019-02-07] MEDS: CALTRATE 600 PO SCH (08:33)
--- NOTE | 2019-02-07 13:46 | PROGRESS NOTE ---
DATE: 02/07/2019 INTERVAL HISTORY: The patient has no new complaints. Right arm discomfort improved on gabapentin. Right hemiplegia and expressive aphasia, unchanged. REVIEW OF SYSTEMS: A 12 point review negative as per interval history. VITALS: T-max 98.4 degrees, pulse 86, blood pressure 117/78, O2 saturation 96% on room air. PHYSICAL EXAMINATION: General: No acute distress. Vitals: As above. HEENT: Normocephalic, atraumatic. Moist mucous membranes. Neck: No cervical adenopathy. Cardiovascular: Regular rate and rhythm without murmurs, rubs or gallops. Pulmonary: Clear to auscultation bilaterally. No wheezing, rales or rhonchi. Abdomen: Soft, nontender, nondistended. Bowel sounds positive. Extremities: Peripheral pulses intact. Mild right-sided contracture, stable. No cyanosis, clubbing or edema. Neurologic: The patient with stable right hemiplegia and mild expressive aphasia. No new focal deficits. Psychiatric: Normal mood and affect. Awake, alert, oriented x3. Skin: No new rashes or lesions identified. ASSESSMENT AND PLAN: 1. Right upper extremity cellulitis and edema, now resolved. Monitoring off of antibiotics. Continue physical therapy. 2. Urinary tract infection, status post antibiotics, resolved. 3. Right hemiplegia and expressive aphasia secondary to stroke last August, . DISPOSITION: Placement efforts on going. Medically stable for discharge when replacement is obtained.
[2019-02-07] MEDS: MELATONIN PO SCH (22:07)
[2019-02-07] MEDS: MORPHINE IV PRN ×2 (22:08→23:37)
[2019-02-08] MEDS: PROTONIX PO SCH (06:14)
[2019-02-08] MEDS: LOVENOX SUBQ SCH (09:50)
[2019-02-08] MEDS: ASPIRIN PO SCH (09:51)
[2019-02-08] MEDS: FOLIC ACID PO SCH (09:51)
[2019-02-08] MEDS: CULTURELLE PO SCH ×2 (09:51→21:10)
[2019-02-08] MEDS: CALTRATE 600 PO SCH (09:51)
[2019-02-08] MEDS: VITAMIN B-1 PO SCH (09:51)
[2019-02-08] MEDS: VALIUM PO SCH ×2 (09:51→21:10)
[2019-02-08] MEDS ORDERED: MOTRIN PO PRN (13:38)
--- NOTE | 2019-02-08 15:05 | PROGRESS NOTE ---
DATE: 02/08/2019 INTERVAL HISTORY: Hemiplegia and fluent aphasia unchanged. Again complaining of some pain in the right arm, states it is more achy. No other new complaints. No acute events overnight. VITALS: T-max 98.4, pulse 75, respirations 16, blood pressure 101/69, O2 saturation 97% on room air. PHYSICAL EXAMINATION: General: No acute distress. Vital signs: As above. HEENT: Normocephalic, atraumatic. Moist mucous membranes. No cervical adenopathy. Cardiovascular: Regular rate and rhythm. No murmurs, rubs, or gallops. Pulmonary: Clear to auscultation bilaterally. No wheezing, rales, or rhonchi. Abdomen: Soft, nontender, nondistended, bowel sounds positive. Extremities: Peripheral pulses intact. Mild right side contractures stable. No clubbing, cyanosis, or edema. Neurologic: Patient with unchanged right hemiplegia and mild fluent aphasia. No new focal deficits. Psychiatric: Normal mood and affect. Awake, alert, and oriented x3. Skin: No new rashes or lesions identified. ASSESSMENT AND PLAN: 1. Right upper extremity cellulitis and edema now resolved, monitoring off antibiotics, continue physical therapy. 2. Urinary tract infection status post course of antibiotics resolved. 3. 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 4. Right arm pain. Will adjust ibuprofen and see if that helps.
[2019-02-08] MEDS: MORPHINE IV PRN (21:09)
[2019-02-08] MEDS: MELATONIN PO SCH (21:10)
[2019-02-09] MEDS: MORPHINE IV PRN ×2 (02:42→10:03)
[2019-02-09] MEDS: PROTONIX PO SCH (06:43)
[2019-02-09] MEDS: VITAMIN B-1 PO SCH (10:04)
[2019-02-09] MEDS: VALIUM PO SCH ×2 (10:04→20:37)
[2019-02-09] MEDS: FOLIC ACID PO SCH (10:05)
[2019-02-09] MEDS: CULTURELLE PO SCH ×2 (10:05→20:37)
[2019-02-09] MEDS: LOVENOX SUBQ SCH (10:05)
[2019-02-09] MEDS: ASPIRIN PO SCH (10:05)
[2019-02-09] MEDS: CALTRATE 600 PO SCH (10:06)
--- NOTE | 2019-02-09 12:51 | PROGRESS NOTE ---
DATE: 02/09/2019 INTERVAL HISTORY: The patient's right arm discomfort improved with low-dose ibuprofen. No new complaints. No acute events overnight. VITALS: T-max 98.2, pulse 87, respirations 20, blood pressure 103/66, O2 sat 99% on room air.. PHYSICAL EXAM: General: No acute distress. Vitals: As above. HEENT: Normocephalic, atraumatic. Moist mucous membranes. No cervical adenopathy. Cardiovascular: Regular rate and rhythm. No murmurs, rubs, or gallops. Pulmonary: Clear to auscultation bilaterally. No wheezing. No rhonchi. Abdomen: Soft, nontender, nondistended. Bowel sounds positive. Extremities: Peripheral pulses intact. Mild right-sided contractures, unchanged. No clubbing, cyanosis, or edema. Neurologic: Patient with stable right hemiplegia and mild fluent aphasia. No new focal deficits. Psychiatric: Normal mood and affect. Awake, alert, oriented x3. Skin: No new rashes or lesions identified. ASSESSMENT AND PLAN: 1. Right upper extremity cellulitis and edema, now resolved. Monitoring off antibiotics. Continue physical therapy. 2. Urinary tract infection status post antibiotics, now resolved. 3. 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 4. Right arm pain improved with ibuprofen. Continue to monitor. DISPOSITION: Efforts of placement ongoing. Transferring patient to [facility] given relatively low acuity and likelihood of extended hospital course while seeking placement.
[2019-02-09] MEDS ORDERED: MORPHINE IV PRN (17:46)
[2019-02-09] MEDS ORDERED: ZOFRAN IV PRN (17:48)
[2019-02-09] MEDS: MOTRIN PO PRN (19:07)
[2019-02-09] MEDS: MELATONIN PO SCH (20:36)
[2019-02-10] MEDS: MOTRIN PO PRN ×3 (03:49→18:09)
[2019-02-10] MEDS: PROTONIX PO SCH (06:30)
[2019-02-10] MEDS: ASPIRIN PO SCH (10:11)
[2019-02-10] MEDS: VALIUM PO SCH ×2 (10:11→20:35)
[2019-02-10] MEDS: FOLIC ACID PO SCH (10:11)
[2019-02-10] MEDS: VITAMIN B-1 PO SCH (10:11)
[2019-02-10] MEDS: CALTRATE 600 PO SCH (10:12)
[2019-02-10] MEDS: LOVENOX SUBQ SCH (10:12)
[2019-02-10] MEDS: CULTURELLE PO SCH ×2 (10:12→20:35)
[2019-02-10] MEDS: NORCO-7.5 PO PRN (20:34)
[2019-02-10] MEDS: ZOFRAN ODT PO PRN (20:34)
[2019-02-10] MEDS: MELATONIN PO SCH (20:35)
--- NOTE | 2019-02-11 00:08 | PROGRESS NOTE ---
DATE: 02/10/2019 SUBJECTIVE: Patient states that she has no complaints currently. PHYSICAL EXAMINATION: Vital Signs: Temperature 97.7 degrees, pulse 75, respiratory 18, BP 94/64. General: Patient is awake, alert. She is in no current respiratory distress. HEENT: Normocephalic. Neck: Supple. Cardiovascular: Regular rate. Chest: Clear. Abdomen: Soft, nondistended. Extremities: There is mild right-sided contracture. No clubbing. Neurologic: She has right-sided hemiplegia with mild fluent aphasia. She is awake, alert, oriented. ASSESSMENT: 1. Right upper extremity cellulitis, resolved. 2. Right hemiplegia and fluent aphasia secondary to a stroke last August. PLAN: We will continue patient in the hospital. Continue supportive care until long-term placement can be arranged. cc: Brian Hernandez MD
[2019-02-11] MEDS: MOTRIN PO PRN (00:55)
[2019-02-11] MEDS: NORCO-7.5 PO PRN ×4 (00:55→20:44)
[2019-02-11] MEDS: CALTRATE 600 PO SCH (09:31)
[2019-02-11] MEDS: CULTURELLE PO SCH ×2 (09:31→20:45)
[2019-02-11] MEDS: FOLIC ACID PO SCH (09:31)
[2019-02-11] MEDS: VALIUM PO SCH ×2 (09:31→20:44)
[2019-02-11] MEDS: VITAMIN B-1 PO SCH (09:31)
[2019-02-11] MEDS: ASPIRIN PO SCH (09:31)
[2019-02-11] MEDS: PROTONIX PO SCH (09:32)
[2019-02-11] MEDS: LOVENOX SUBQ SCH (09:32)
--- NOTE | 2019-02-11 15:58 | PROGRESS NOTE ---
DATE: 02/11/2019 SUBJECTIVE: Patient has no new complaints. PHYSICAL EXAMINATION: Vital Signs: Reviewed. Temperature 97.7 degrees, pulse 71, respiratory rate 18, BP 114/61. General: Patient's physical exam is unchanged. Still has right-sided weakness with some contractures. She is in no distress. ASSESSMENT: Right hemiplegia and fluent aphasia secondary to a stroke. PLAN: We will continue the patient in the hospital until which time further arrangements can be made for long-term care. cc: Brian Hernandez MD
[2019-02-11] MEDS: MELATONIN PO SCH (20:44)
[2019-02-12] MEDS: NORCO-7.5 PO PRN ×3 (01:49→22:27)
[2019-02-12] MEDS: MOTRIN PO PRN (04:47)
[2019-02-12 05:57] LABS: HEMATOCRIT 35.6 % (37.0-47.0); HEMOGLOBIN 11.4 g/dL (12.0-16.0); MCH 30.9 PG (27-31); MCV 96.5 FL (81-99); MPV 11.5 FL (7.4-10.4); RBC 3.69 XMIL (4.2-5.4); RDW 13.8 % (11.5-14.5); WBC 7.58 X1000 (4.8-10.8)
[2019-02-12] MEDS: PROTONIX PO SCH ×2 (06:12→10:22)
[2019-02-12 06:20] LABS: AGAP 12; ALBUMIN 3.8 g/dL (3.5-5.0); ALKALINE PHOSPHATASE 77 U/L (32-104); BUN 15 mg/dL (8-22); CALCIUM 9.5 mg/dL (8.8-10.2); CHLORIDE 101 mmol/L (98-107); COSMO 280; CREATININE 0.4 mg/dL (0.5-0.9); ESTIMATED GFR > 60; GLUCOSE 96 mg/dL (70-104); GOT 9 U/L (10-30); GPT 10 U/L (10-36); MAGNESIUM 1.8 mg/dL (1.5-2.7); POTASSIUM 3.8 mmol/L (3.5-5.1); SODIUM 140 mmol/L (136-145); TCO2 27 mmol/L (25-35); TOTAL PROTEIN 6.9 g/dL (6.3-8.3)
[2019-02-12] MEDS: VITAMIN B-1 PO SCH (10:25)
[2019-02-12] MEDS: CULTURELLE PO SCH ×2 (10:25→22:27)
[2019-02-12] MEDS: LOVENOX SUBQ SCH (10:25)
[2019-02-12] MEDS: ASPIRIN PO SCH (10:26)
[2019-02-12] MEDS: FOLIC ACID PO SCH (10:26)
[2019-02-12] MEDS: VALIUM PO SCH ×2 (10:26→22:27)
[2019-02-12] MEDS: CALTRATE 600 PO SCH (10:26)
[2019-02-12] MEDS ORDERED: MORPHINE IV PRN (16:24)
--- NOTE | 2019-02-12 16:50 | PROGRESS NOTE ---
DATE: 02/12/2019 SUBJECTIVE: The patient has no focal complaints except she says her pain medicine is not doing anything for her, which is [place]. She is specifically requesting morphine. I am not sure if she has had a drug issue in the past. She has CP and a stroke, and she had a cellulitis of her arm, which I think is essentially resolved. In any case, the patient is doing better. OBJECTIVE: Vital Signs: Blood pressure 98/60, heart rate 86, respiratory rate 20, temperature 97.7 degrees. Cardiovascular: Regular rate and rhythm. Pulmonary: Bilateral breath sounds. Clear to auscultation. GI: Soft, nontender, nondistended. Bowel sounds are positive. Extremities: No clubbing or cyanosis. Lymphatic exam: No peripheral edema. Neurological: Nonfocal. LABORATORY DATA: White count 7, hemoglobin and hematocrit 11 and 35, platelets 363,000. Comprehensive metabolic panel was negative. PROBLEM LIST: 1. Right hemiplegia and aphagia. The patient is at baseline. 2. Cellulitis. She has completed antibiotics. She is currently on nothing. 3. Disposition. We are looking at permanent placement. She has no outpatient options because her mother is not able take care of her anymore and she was taking care of her regularly before, but now I think she has a diagnosis of cancer and can no longer. So at this point, she is total care, unable to handle it herself, and we are looking at long-term placement which we are in the process of deciding. cc: Johnny Franco MD
[2019-02-12] MEDS: MELATONIN PO SCH (22:27)
[2019-02-13] MEDS: NORCO-7.5 PO PRN ×5 (03:18→22:55)
[2019-02-13] MEDS: PROTONIX PO SCH (07:01)
[2019-02-13] MEDS: FOLIC ACID PO SCH (09:30)
[2019-02-13] MEDS: CALTRATE 600 PO SCH (09:34)
[2019-02-13] MEDS: VALIUM PO SCH ×2 (09:34→21:31)
[2019-02-13] MEDS: LOVENOX SUBQ SCH (09:34)
[2019-02-13] MEDS: CULTURELLE PO SCH ×2 (09:35→21:31)
[2019-02-13] MEDS: ASPIRIN PO SCH (09:35)
[2019-02-13] MEDS: VITAMIN B-1 PO SCH (09:35)
[2019-02-13] MEDS: LEVAQUIN PO SCH (11:08)
--- NOTE | 2019-02-13 18:40 | PROGRESS NOTE ---
DATE: 02/13/2019 SUBJECTIVE: Patient has no focal complaints. OBJECTIVE: Vital signs: Blood pressure 120/76, heart rate 71, respiratory 18, temperature 97.7 degrees, 99% on room air. Cardiovascular: Regular rate and rhythm. Pulmonary: Bilateral breath sounds. Clear to auscultation. GI: Soft, nontender, nondistended. Bowel sounds are positive. LABORATORY DATA: White count 7, hemoglobin and hematocrit 11 and 35, platelets 363,000. ASSESSMENT: 1. Right hemiplegia, aphasia. This is chronic. She is stable currently, but cannot take care of herself. 2. Cellulitis of her right arm. That has also stabilized. 3. Staphylococcus epidermidis urinary tract infection. We will continue Levaquin and follow. 4. Disposition. We are looking at placement once we can get her disability insurance status rectified. cc: Johnny Franco MD
[2019-02-13] MEDS: MELATONIN PO SCH (21:31)
[2019-02-14] MEDS: NORCO-7.5 PO PRN ×5 (04:26→23:18)
[2019-02-14] MEDS: PROTONIX PO SCH ×2 (06:23→09:34)
[2019-02-14] MEDS: CALTRATE 600 PO SCH (09:13)
[2019-02-14] MEDS: FOLIC ACID PO SCH (09:13)
[2019-02-14] MEDS: CULTURELLE PO SCH ×2 (09:13→21:09)
[2019-02-14] MEDS: VITAMIN B-1 PO SCH (09:13)
[2019-02-14] MEDS: VALIUM PO SCH ×2 (09:14→21:09)
[2019-02-14] MEDS: LEVAQUIN PO SCH (09:14)
[2019-02-14] MEDS: LOVENOX SUBQ SCH (09:14)
[2019-02-14] MEDS: ASPIRIN PO SCH (09:14)
--- NOTE | 2019-02-14 15:21 | PROGRESS NOTE ---
DATE: 02/14/2019 SUBJECTIVE: Patient has no major complaints. OBJECTIVE: Vital signs: Blood pressure 91/56, heart rate of 100, respiratory rate of 16, temperature 98 degrees, 96% on room air. Cardiovascular: Regular rate and rhythm. Pulmonary: Bilateral breath sounds. Clear to auscultation. GI: Soft, nontender, nondistended. Bowel sounds are positive. LABORATORY DATA: No new data today. PROBLEM LIST: 1. Staphylococcus epidermidis urinary tract infection. She is on Levaquin. Continue to follow. 2. History of cellulitis. She had completed antibiotics for that. 3. History of cerebral palsy and right-sided hemiplegia, aphasia, stroke, chronic, but unable to take care of herself. Her primary caregiver can no longer take care of her, so she is completely dependent on ADLs. Working on insurance status to approve for long-term care. 4. Disposition. Awaiting long-term care. Hopefully, that will happen soon. cc: Johnny Franco MD
[2019-02-14] MEDS: MELATONIN PO SCH (21:09)
[2019-02-15] MEDS: ASPIRIN PO SCH (08:23)
[2019-02-15] MEDS: LEVAQUIN PO SCH (08:24)
[2019-02-15] MEDS: VITAMIN B-1 PO SCH (08:24)
[2019-02-15] MEDS: CULTURELLE PO SCH ×2 (08:24→20:50)
[2019-02-15] MEDS: PROTONIX PO SCH (08:24)
[2019-02-15] MEDS: CALTRATE 600 PO SCH (08:24)
[2019-02-15] MEDS: FOLIC ACID PO SCH (08:24)
[2019-02-15] MEDS: VALIUM PO SCH ×2 (08:24→20:50)
[2019-02-15] MEDS: LOVENOX SUBQ SCH (10:44)
[2019-02-15] MEDS: NORCO-7.5 PO PRN ×2 (10:47→20:50)
--- NOTE | 2019-02-15 11:34 | PROGRESS NOTE ---
DATE: 02/15/2019 SUBJECTIVE: The patient has no major complaints. No acute events overnight. OBJECTIVE: Vital Signs: Temperature 98 degrees, pulse 84, respiratory rate 16, blood pressure 98/70, oxygen saturation 97% on room air. HEENT: Head normocephalic. No trauma. Cardiovascular: RRR. Chest: Clear to auscultation. No wheezing. No rales. Abdomen: Soft, nontender, nondistended. No hepatosplenomegaly. Extremities: No edema. Neurological Examination: This patient is alert. She is following commands. She is able to say her name but not her last name. She is oriented to place. She knows she is in a hospital but she does not remember the name of the hospital. Laboratory: No new lab work today. ASSESSMENT AND PLAN: 1. Staphylococcus epidermidis urinary tract infection. Continue with Levaquin. 2. History of cellulitis. She has completed antibiotic treatment. 3. History of cerebral palsy and right-sided hemiplegia, aphasia, stroke, chronic, but she is not able to take care of herself. Her primary caregiver can no longer take care of this patient and she is basically completely dependent in activities of daily living. set up worker on board, working on insurance status to approve long-term care. 4. Disposition. Awaiting long-term care approval. cc: Trino Cervantes MD
[2019-02-15] MEDS: MELATONIN PO SCH (20:50)
[2019-02-16] MEDS: NORCO-7.5 PO PRN ×3 (02:04→22:31)
[2019-02-16] MEDS: FOLIC ACID PO SCH (09:17)
[2019-02-16] MEDS: CALTRATE 600 PO SCH (09:17)
[2019-02-16] MEDS: LEVAQUIN PO SCH (09:17)
[2019-02-16] MEDS: ASPIRIN PO SCH (09:17)
[2019-02-16] MEDS: CULTURELLE PO SCH ×2 (09:17→20:56)
[2019-02-16] MEDS: LOVENOX SUBQ SCH (09:17)
[2019-02-16] MEDS: VALIUM PO SCH ×2 (09:17→20:56)
[2019-02-16] MEDS: PROTONIX PO SCH (09:17)
[2019-02-16] MEDS: VITAMIN B-1 PO SCH (09:17)
--- NOTE | 2019-02-16 09:54 | PROGRESS NOTE ---
DATE: 02/16/2019 SUBJECTIVE: No acute events overnight. OBJECTIVE: Vital Signs: Temperature 97.5 degrees, pulse 75, respiratory rate 20, blood pressure 104/63 and oxygen saturation 100% on room air. HEENT: Head normocephalic and atraumatic. PERRLA. Neck: Supple. No JVD. Central trachea. Chest: Clear to auscultation. No wheezing. No rales. Abdomen: Soft, nontender, and nondistended. No hepatosplenomegaly. Extremities: No edema. No clubbing. No cyanosis. Decreased muscle mass. Neurological: This patient is sleepy, but arousable. She is following commands. She is able to say her name. She is oriented to place, but she does not know the name of this hospital. She does have right-sided hemiplegia. LABORATORY: WBC 7.5, hemoglobin 11.4, hematocrit 35.6, and platelets 363,000. Sodium 140, potassium 3.8, chloride 101, bicarbonate 27, BUN 15, creatinine 0.4 glucose 96, calcium 9.5, magnesium 1.8, AST 9, ALT 10, and alkaline phosphatase 77. ASSESSMENT AND PLAN: 1. Staphylococcus epidermidis urinary tract infection. Continue with Levaquin. 2. History of cellulitis. She has completed antibiotic treatment. 3. History of cerebral palsy and right-sided hemiplegia, aphasia, stroke. This is chronic and she cannot take care of herself. Her primary caregiver can no longer take care of this patient. Basically, she is completely dependent in activities of daily living. community placement worker on board working on insurance status to approve long-term care. 4. Disposition. Awaiting long-term care approval. cc: Trino Cervantes MD
[2019-02-16] MEDS: MELATONIN PO SCH (20:56)
[2019-02-17] MEDS: PROTONIX PO SCH (06:40)
[2019-02-17 07:00] LABS: BASO# 0.04 X1000 (0.0-0.2); BASO% 0.6 % (0.0-0.8); EOS# 0.16 X1000 (0.0-0.7); EOS% 2.4 % (0.0-10.0); HEMATOCRIT 32.5 % (37.0-47.0); HEMOGLOBIN 10.8 g/dL (12.0-16.0); IMM GRAN# 0.02 X1000 (0.0-0.04); IMM GRAN% 0.3 % (0.0-0.5); LYMPH# 2.31 X1000 (1.2-3.4); LYMPH% 34.5 % (20.5-51.1); MCH 31.1 PG (27-31); MCHC 33.2 g/dL (33-37); MCV 93.7 FL (81-99); MONO# 0.58 X1000 (0.11-0.59); MONO% 8.7 % (1.7-9.3); MPV 11.4 FL (7.4-10.4); NEUT# 3.59 X1000 (1.4-6.5); NEUT% 53.5 % (42.2-75.2); PLT 328 X1000 (130-400); RBC 3.47 XMIL (4.2-5.4); RDW 13.7 % (11.5-14.5)
[2019-02-17 07:31] LABS: AGAP 13; ALBUMIN 3.7 g/dL (3.5-5.0); ALKALINE PHOSPHATASE 64 U/L (32-104); BUN 18 mg/dL (8-22); CALCIUM 9.1 mg/dL (8.8-10.2); CHLORIDE 102 mmol/L (98-107); COSMO 278; CREATININE 0.4 mg/dL (0.5-0.9); ESTIMATED GFR > 60; GLUCOSE 98 mg/dL (70-104); GOT 12 U/L (10-30); GPT 11 U/L (10-36); POTASSIUM 4.1 mmol/L (3.5-5.1); SODIUM 138 mmol/L (136-145); TCO2 24 mmol/L (25-35); TOTAL PROTEIN 6.4 g/dL (6.3-8.3)
[2019-02-17] MEDS: ASPIRIN PO SCH (09:50)
[2019-02-17] MEDS: CULTURELLE PO SCH ×2 (09:50→21:41)
[2019-02-17] MEDS: FOLIC ACID PO SCH (09:50)
[2019-02-17] MEDS: LEVAQUIN PO SCH (09:50)
[2019-02-17] MEDS: CALTRATE 600 PO SCH (09:50)
[2019-02-17] MEDS: VITAMIN B-1 PO SCH (09:50)
[2019-02-17] MEDS: NORCO-7.5 PO PRN ×2 (09:50→21:52)
[2019-02-17] MEDS: VALIUM PO SCH ×2 (09:50→21:41)
[2019-02-17] MEDS: LOVENOX SUBQ SCH (09:51)
--- NOTE | 2019-02-17 10:31 | PROGRESS NOTE ---
DATE: 02/17/2019 SUBJECTIVE: This morning, Ms. Pereira referred to be doing fairly okay. She denies any complaints. She was actually having her breakfast at the time of the encounter. OBJECTIVE: Vital signs: Blood pressure 95/57, pulse is 91, respirations 16, temperature 97.6 degrees, and patient is saturating 94% on room air. General: Ms. Pereira is a 44-year-old female. She is in bed, in no distress. HEENT: Mucosa is pink and moist. Anicteric. Acyanotic. Neck: Supple. Chest: Clear to auscultation. No crepitations. No rhonchi. Cardiovascular: Regular rate and rhythm. Abdomen: Soft, nontender. Extremities: No pedal edema. MANAGER TALENT: Patient is awake, alert, oriented. Does have a right-side hemiplegia. There are exaggerated DTRs in both lower extremities. Musculoskeletal: There is some minimal tenderness in the right elbow joint, but no swelling. LABORATORY DATA: WBC is 6.70, hemoglobin is 10.8, platelet count of 328. Chemistry is also reviewed and completely normal. ASSESSMENT: 1. Staphylococcus epidermidis urinary tract infection, improved. 2. History of cellulitis, completely treated. 3. History of cerebrovascular accident with right-sided hemiplegia. 4. Baseline cognitive decline secondary to cerebral palsy. 5. Disposition still pending Social Work arrangement for adequate placement. cc: Souleymane Sam MD
[2019-02-17] MEDS: MELATONIN PO SCH (21:41)
[2019-02-18] MEDS: PROTONIX PO SCH (06:29)
[2019-02-18] MEDS: LOVENOX SUBQ SCH ×2 (08:32→10:34)
[2019-02-18] MEDS: CULTURELLE PO SCH ×2 (08:32→21:55)
[2019-02-18] MEDS: CALTRATE 600 PO SCH (08:32)
[2019-02-18] MEDS: VALIUM PO SCH ×2 (08:32→21:55)
[2019-02-18] MEDS: VITAMIN B-1 PO SCH (08:32)
[2019-02-18] MEDS: LEVAQUIN PO SCH (08:32)
[2019-02-18] MEDS: ASPIRIN PO SCH (08:32)
[2019-02-18] MEDS: FOLIC ACID PO SCH (08:32)
--- NOTE | 2019-02-18 12:10 | PROGRESS NOTE ---
DATE: 02/18/2019 SUBJECTIVE: This morning, Ms. Pereira referred to be doing fairly okay. There are no new complaints. She has been tolerating her diet, and she has been having regular physiological needs. OBJECTIVE: Vitals: Blood pressure is 105/79, pulse of 82, respiration is 16, temperature 97.5 degrees. The patient is saturating 96% on room air. On general exam, Ms. Pereira is a 44-year- old female. She is in bed. She is not in any cardiopulmonary distress. Mucosa is pink and moist. Anicteric. Acyanotic. Neck is supple. No JVD. Chest is clear to auscultation. No crepitations. No rhonchi. Cardiovascular: Regular rate and rhythm. No murmurs, no rubs, no gallops. Gastrointestinal: Abdomen is soft, nontender. Bowel sounds present. Extremities: No pedal edema. Central Nervous System: Patient is awake, alert, and oriented. Has a right-side spastic hemiplegia with exaggerated DTRs. Musculoskeletal: There is minimal tenderness in the range of movement in the right elbow. LABORATORY DATA: None for today. MEDICATION: The patient's medications have all been reviewed. No changes. ASSESSMENT: 1. Staphylococcus epidermidis urinary tract infection (UTI). This is improved. Antibiotics have been completed. We have discontinue the levofloxacin today. 2. History of cellulitis of the right upper extremity, resolved. 3. History of cerebrovascular accident (CVA) with right-sided hemiplegia. 4. Baseline and cognitive decline secondary to cerebral palsy. 5. Social issues pending disposition. cc: Souleymane Sam MD
[2019-02-18] MEDS: MELATONIN PO SCH (21:55)
[2019-02-19] MEDS: PROTONIX PO SCH ×2 (06:06→08:09)
[2019-02-19] MEDS: CULTURELLE PO SCH ×2 (08:09→21:09)
[2019-02-19] MEDS: CALTRATE 600 PO SCH (08:09)
[2019-02-19] MEDS: LOVENOX SUBQ SCH ×2 (08:09→10:00)
[2019-02-19] MEDS: ASPIRIN PO SCH (08:09)
[2019-02-19] MEDS: VALIUM PO SCH ×2 (08:09→21:09)
[2019-02-19] MEDS: FOLIC ACID PO SCH (08:09)
[2019-02-19] MEDS: VITAMIN B-1 PO SCH (08:09)
--- NOTE | 2019-02-19 19:21 | PROGRESS NOTE ---
DATE: 02/19/2019 SUBJECTIVE: The patient has no new complaints. States overall she is doing okay. PHYSICAL EXAMINATION: Vital Signs: Temp 97, pulse 72, respiratory 20, BP 101/79. General: She is in no current respiratory distress. Overall, she notes she is doing okay. PHYSICAL EXAMINATION: Vital Signs: Reviewed and stable. HEENT: Normocephalic. Neck: Supple. Cardiovascular: Regular rate. Chest: Clear. ASSESSMENT: 1. Recent Staph epidermidis urinary tract infection. Repeat urine culture is pending. 2. History of cellulitis. 3. Cerebrovascular accident. PLAN: Continue patient in the hospital until which time further discharge plans can be arranged. cc: Brian Hernandez MD
[2019-02-19] MEDS: MELATONIN PO SCH (21:10)
[2019-02-20 01:12] LABS: BILIRUBIN URINE NEGATIVE (NEGATIVE); BLOOD URINE 4+ (NEGATIVE); CLARITY SL. CLOUDY (CLEAR); COLOR YELLOW; GLUCOSE URINE NEGATIVE (NEGATIVE); KETONE URINE NEGATIVE (NEGATIVE); LEUKOCYTES URINE TRACE (NEGATIVE); NITRITE URINE POSITIVE (NEGATIVE); PROTEIN URINE 1+(30 mg/dL) mg/dL (NEGATIVE); UROBILINOGEN URINE NORMAL
[2019-02-20 01:19] LABS: URINE BACTERIA 3+ /HFP; URINE EPITHELIAL CELLS <10 /HPF (<10); URINE RBC TNTC /HPF (<10); URINE SOURCE CATH; URINE WBC <10 /HPF (<10)
[2019-02-20] MEDS: PROTONIX PO SCH (08:26)
[2019-02-20] MEDS: VITAMIN B-1 PO SCH (08:26)
[2019-02-20] MEDS: CULTURELLE PO SCH ×2 (08:26→21:35)
[2019-02-20] MEDS: LEVAQUIN PO SCH (08:26)
[2019-02-20] MEDS: CALTRATE 600 PO SCH (08:26)
[2019-02-20] MEDS: VALIUM PO SCH ×2 (08:26→21:35)
[2019-02-20] MEDS: FOLIC ACID PO SCH (08:26)
[2019-02-20] MEDS: ASPIRIN PO SCH (08:26)
[2019-02-20] MEDS: LOVENOX SUBQ SCH (10:40)
[2019-02-20] MEDS: MELATONIN PO SCH (21:36)
--- NOTE | 2019-02-20 21:43 | PROGRESS NOTE ---
DATE: 02/20/2019 SUBJECTIVE: Patient seen and examined. She has no new complaints. Denies any problems. PHYSICAL: Temperature 97, pulse 75, respiratory 20, BP 109/72.General: Patient is awake, alert, no acute distress. CV: Regular rate. Chest: Clear. Abdomen: Soft. Neuro: She has right- sided spastic hemiplegia. ASSESSMENT: 1. Recent Staph epidermidis urinary tract infection currently not on antibiotics. Her culture is pending. We will restart Levaquin as does appear as though she may have recurrence of her UTI. 2. Right-sided spastic hemiplegia secondary to cerebrovascular accident. 3. Adult failure to thrive. PLAN: Continue in the hospital until which time she can be transitioned to long-term care. cc: Brian Hernandez MD
--- NOTE | 2019-02-21 08:01 | PROGRESS NOTE ---
DATE: 02/21/2019 SUBJECTIVE: Patient has no complaints. PHYSICAL EXAMINATION: Vital Signs: Reviewed and stable. General: She is awake and alert. She is in no distress. Musculoskeletal: Physical exam is unchanged. Right-sided weakness is unchanged. ASSESSMENT: 1. Urinary tract infection. We will continue Levaquin until culture results. 2. CVA. Stable. 3. Adult failure to thrive. PLAN: We will continue patient in the hospital until which time discharge arrangements can be made. We will follow her urinary tract infection. Further orders as needed. cc: Brian Hernandez MD
[2019-02-21] MEDS: LEVAQUIN PO SCH (09:33)
[2019-02-21] MEDS: VALIUM PO SCH ×2 (09:33→20:03)
[2019-02-21] MEDS: FOLIC ACID PO SCH (09:33)
[2019-02-21] MEDS: VITAMIN B-1 PO SCH (09:33)
[2019-02-21] MEDS: CULTURELLE PO SCH ×2 (09:33→20:03)
[2019-02-21] MEDS: ASPIRIN PO SCH (09:33)
[2019-02-21] MEDS: PROTONIX PO SCH (09:33)
[2019-02-21] MEDS: CALTRATE 600 PO SCH (09:33)
[2019-02-21] MEDS: LOVENOX SUBQ SCH (09:36)
[2019-02-21] MEDS: MELATONIN PO SCH (20:03)
[2019-02-21] MEDS: NORCO-7.5 PO PRN (22:59)
[2019-02-22] MEDS: NORCO-7.5 PO PRN ×2 (06:01→22:07)
[2019-02-22] MEDS: PROTONIX PO SCH (08:29)
[2019-02-22] MEDS: FOLIC ACID PO SCH (09:40)
[2019-02-22] MEDS: VALIUM PO SCH ×2 (09:40→20:36)
[2019-02-22] MEDS: ASPIRIN PO SCH (09:40)
[2019-02-22] MEDS: CALTRATE 600 PO SCH (09:40)
[2019-02-22] MEDS: VITAMIN B-1 PO SCH (09:40)
[2019-02-22] MEDS: CULTURELLE PO SCH ×2 (09:40→20:35)
[2019-02-22] MEDS: LOVENOX SUBQ SCH (09:41)
[2019-02-22] MEDS: MELATONIN PO SCH (20:35)
[2019-02-22] MEDS: MOTRIN PO PRN (22:08)
[2019-02-23] MEDS: NORCO-7.5 PO PRN ×4 (01:53→23:06)
--- NOTE | 2019-02-23 02:44 | PROGRESS NOTE ---
DATE: 02/22/2019 OBJECTIVE: General: No complaints. Vital Signs: Reviewed. No current complaints. PHYSICAL: Vitals unchanged, physical unchanged. ASSESSMENT: No current changes. Still awaiting placement. cc: Brian Hernandez MD MTDD
[2019-02-23] MEDS: LOVENOX SUBQ SCH (09:19)
[2019-02-23] MEDS: ASPIRIN PO SCH (09:20)
[2019-02-23] MEDS: VITAMIN B-1 PO SCH (09:21)
[2019-02-23] MEDS: PROTONIX PO SCH (09:21)
[2019-02-23] MEDS: VALIUM PO SCH ×2 (09:21→22:01)
[2019-02-23] MEDS: FOLIC ACID PO SCH (09:21)
[2019-02-23] MEDS: CULTURELLE PO SCH ×2 (09:21→22:01)
[2019-02-23] MEDS: CALTRATE 600 PO SCH (09:21)
--- NOTE | 2019-02-23 15:58 | PROGRESS NOTE ---
DATE: 02/23/2019 SUBJECTIVE: Patient seen. She has no new complaints. PHYSICAL EXAMINATION: Vital Signs: Temp 97, pulse 65, respiratory 20, BP 100/55. General: Patient is in no current respiratory distress, lying in the bed. Physical Exam: Unchanged. ASSESSMENT: 1. Recent CVA with right-sided paraplegia. 2. Cognitive decline due to cerebral palsy. 3. Poor Social situation. PLAN: We will continue patient in the hospital. Currently, she has no ability to be discharged to her residence as she has no family that is able to participate in her care and she is unable to care for herself. We will continue in the hospital until which time further arrangements can be made. cc: Brian Hernandez MD MTDD
[2019-02-23] MEDS: MELATONIN PO SCH (22:01)
[2019-02-24] MEDS: NORCO-7.5 PO PRN ×4 (06:38→20:43)
[2019-02-24] MEDS: PROTONIX PO SCH (06:38)
[2019-02-24] MEDS: VITAMIN B-1 PO SCH (11:52)
[2019-02-24] MEDS: FOLIC ACID PO SCH (11:52)
[2019-02-24] MEDS: CULTURELLE PO SCH ×2 (11:52→20:43)
[2019-02-24] MEDS: ASPIRIN PO SCH (11:52)
[2019-02-24] MEDS: LOVENOX SUBQ SCH (11:53)
[2019-02-24] MEDS: VALIUM PO SCH ×2 (11:53→20:43)
[2019-02-24] MEDS: CALTRATE 600 PO SCH (11:53)
--- NOTE | 2019-02-24 16:43 | PROGRESS NOTE ---
DATE: 02/24/2019 SUBJECTIVE: Patient has no complaints. PHYSICAL EXAMINATION: Vital Signs: Reviewed and stable. Unchanged. Physical exam is unchanged. PLAN: We will continue patient in the hospital. Continue symptomatic treatment as needed. Further orders as needed. We will continue to await the ability to transfer to further long-term care. cc: Brian Hernandez MD
[2019-02-24] MEDS: MELATONIN PO SCH (20:44)
[2019-02-25] MEDS: NORCO-7.5 PO PRN ×4 (04:22→22:17)
[2019-02-25] MEDS: PROTONIX PO SCH (06:30)
[2019-02-25] MEDS: VALIUM PO SCH ×2 (08:16→22:17)
[2019-02-25] MEDS: ASPIRIN PO SCH (08:16)
[2019-02-25] MEDS: CULTURELLE PO SCH ×2 (08:16→22:17)
[2019-02-25] MEDS: FOLIC ACID PO SCH (08:16)
[2019-02-25] MEDS: VITAMIN B-1 PO SCH (08:16)
[2019-02-25] MEDS: CALTRATE 600 PO SCH (08:16)
[2019-02-25] MEDS: LOVENOX SUBQ SCH (10:03)
--- NOTE | 2019-02-25 17:33 | PROGRESS NOTE ---
DATE: 02/25/2019 SUBJECTIVE: No change. PHYSICAL: Vital Signs: Stable, BP is 103/76, pulse 73, temperature 97.5 degrees. General: Patient is awake. She is in no distress. Physical exam is unchanged. ASSESSMENT: 1. Poor social situation. 2. Cognitive decline due to cerebral palsy . 3. Right-sided hemiplegia due to cerebrovascular accident. 4. Recent Staph epidermidis urinary tract infection with repeat UA negative. PLAN: Will continue patient in the hospital until which time further arrangements can be made for transition to long-term care. cc: Brian Hernandez MD
[2019-02-25] MEDS: MELATONIN PO SCH (22:18)
[2019-02-26] MEDS: NORCO-7.5 PO PRN ×2 (06:21→22:06)
[2019-02-26] MEDS: PROTONIX PO SCH ×2 (06:21→07:58)
[2019-02-26] MEDS: LOVENOX SUBQ SCH (09:51)
[2019-02-26] MEDS: VITAMIN B-1 PO SCH (09:51)
[2019-02-26] MEDS: CULTURELLE PO SCH ×2 (09:51→22:06)
[2019-02-26] MEDS: FOLIC ACID PO SCH (09:51)
[2019-02-26] MEDS: CALTRATE 600 PO SCH (09:51)
[2019-02-26] MEDS: ASPIRIN PO SCH (09:51)
[2019-02-26] MEDS: VALIUM PO SCH ×2 (09:55→22:06)
--- NOTE | 2019-02-26 14:21 | PROGRESS NOTE ---
DATE: 01/26/2019 SUBJECTIVE: Patient has no major complaints. OBJECTIVE: Blood pressure is 111/72, heart rate of 75, respiratory 16, temperature 97.5.Cardiovascular: Regular rate and rhythm. Pulmonary: Bilateral breath sounds. Clear to auscultation. GI: Soft, nontender, nondistended. Bowel sounds are positive. LABORATORY DATA: White count, I do not have any new data today but it has been pretty normal previously. PROBLEM LIST: 1. Cerebral palsy, cognitive decline and persistent right-sided hemiplegia due to cerebrovascular accident. She is unable to take care of herself. We are continuing conservative care, follow. 2. Staphylococcus epidermidis urinary tract infection. Has completed treatment. DISPOSITION: We are looking at long-term care but have no definitive plans at this point unfortunately because of social situation and insurance approval, but there is no one to take care of her outside the hospital at this point. cc: Johnny Franco MD
[2019-02-26] MEDS: MELATONIN PO SCH (22:06)
[2019-02-27] MEDS: PROTONIX PO SCH ×2 (06:18→07:36)
[2019-02-27] MEDS: NORCO-7.5 PO PRN ×3 (06:18→16:22)
[2019-02-27] MEDS: VALIUM PO SCH ×2 (08:49→21:03)
[2019-02-27] MEDS: VITAMIN B-1 PO SCH (08:49)
[2019-02-27] MEDS: LOVENOX SUBQ SCH ×2 (08:49→10:01)
[2019-02-27] MEDS: CALTRATE 600 PO SCH (08:49)
[2019-02-27] MEDS: FOLIC ACID PO SCH (08:49)
[2019-02-27] MEDS: CULTURELLE PO SCH ×2 (08:49→21:03)
[2019-02-27] MEDS: ASPIRIN PO SCH (08:49)
--- NOTE | 2019-02-27 17:58 | PROGRESS NOTE ---
DATE: 02/27/2019 SUBJECTIVE: Patient has no major complaints. OBJECTIVE: VITAL SIGNS: Blood pressure 95/56, heart rate of 76, respiratory rate 18, temperature 97.5, 100% on room air. Cardiovascular: Regular rate and rhythm. Pulmonary: Bilateral breath sounds. Clear to auscultation. GI: Soft, nontender, nondistended. Bowel sounds are positive. PROBLEM LIST: 1. Cerebral palsy. History of CVA with persistent right-sided hemiplegia. She is unable to take care of herself, so we are continuing conservative measures. 2. Staphylococcus epidermidis urinary tract infection. She has completed treatment. DISPOSITION: Pending social insurance to decide about long-term care. She has no available family for that purpose. cc: Johnny Franco MD
[2019-02-27] MEDS: MELATONIN PO SCH (21:03)
[2019-02-28] MEDS: CULTURELLE PO SCH ×2 (09:00→20:31)
[2019-02-28] MEDS: VITAMIN B-1 PO SCH (09:00)
[2019-02-28] MEDS: ASPIRIN PO SCH (09:00)
[2019-02-28] MEDS: CALTRATE 600 PO SCH (09:00)
[2019-02-28] MEDS: PROTONIX PO SCH (09:00)
[2019-02-28] MEDS: FOLIC ACID PO SCH (09:00)
[2019-02-28] MEDS: VALIUM PO SCH ×2 (09:00→20:31)
[2019-02-28] MEDS: NORCO-7.5 PO PRN ×3 (09:11→18:47)
[2019-02-28] MEDS: LOVENOX SUBQ SCH (10:54)
--- NOTE | 2019-02-28 14:29 | PROGRESS NOTE ---
DATE: 02/28/2019 SUBJECTIVE: Patient has no major complaints. OBJECTIVE: Blood pressure 123/85, heart rate 72, respiratory rate 18, temperature 97.5. Cardiovascular: Regular rate and rhythm. Pulmonary: Bilateral breath sounds clear to auscultation. GI: Soft, nontender, nondistended. Bowel sounds were normal. Laboratory Data: None new today. ASSESSMENT AND PLAN: 1. Cerebral palsy, history of cerebrovascular accident, right-sided hemiplegia. We are continuing supportive care. 2. Staphylococcus epidermidis urinary tract infection. Completed antibiotics. Repeat urine clear. DISPOSITION: Pending insurance status for long-term placement. cc: Johnny Franco MD
[2019-02-28] MEDS: MELATONIN PO SCH (20:31)
[2019-03-01] MEDS: NORCO-7.5 PO PRN ×3 (02:05→10:41)
[2019-03-01] MEDS: VITAMIN B-1 PO SCH (08:10)
[2019-03-01] MEDS: PROTONIX PO SCH (08:10)
[2019-03-01] MEDS: FOLIC ACID PO SCH (08:10)
[2019-03-01] MEDS: VALIUM PO SCH ×2 (08:10→20:09)
[2019-03-01] MEDS: CULTURELLE PO SCH ×2 (08:10→20:09)
[2019-03-01] MEDS: CALTRATE 600 PO SCH (08:10)
[2019-03-01] MEDS: ASPIRIN PO SCH (08:10)
[2019-03-01] MEDS: LOVENOX SUBQ SCH (09:50)
[2019-03-01] MEDS ORDERED: NS 500 ML IV ONE (13:47)
--- NOTE | 2019-03-01 15:04 | PROGRESS NOTE ---
DATE: 03/01/2019 SUBJECTIVE: Patient has no major complaints. She seems a little bit more drowsy than before. Her blood pressure though has dropped today to 85 and 87 which has not been that low before. She has no IV access currently. LABORATORY DATA: No new laboratory data. PROBLEM LIST: 1. Hypotension, hopefully transient related to medications. We will try to reestablish IV access and give her a bolus and see how she does. Hold pain medication for the time being. 2. History of CVA, cerebral palsy. She is at baseline. She has got hemiplegia of the right side. Continue current regimen. 3. Disposition. Waiting on finalization of her long-term care plans. cc: Johnny Franco MD
[2019-03-01] MEDS: NS 1,000 ML IV SCH (16:15)
[2019-03-01] MEDS: MELATONIN PO SCH (20:09)
[2019-03-02] MEDS: TYLENOL PO PRN (03:32)
[2019-03-02 07:40] LABS: BASO# 0.04 X1000 (0.0-0.2); BASO% 0.6 % (0.0-0.8); EOS# 0.17 X1000 (0.0-0.7); EOS% 2.4 % (0.0-10.0); HEMATOCRIT 29.9 % (37.0-47.0); HEMOGLOBIN 9.7 g/dL (12.0-16.0); LYMPH% 34.2 % (20.5-51.1); MCH 30.6 PG (27-31); MCHC 32.4 g/dL (33-37); MCV 94.3 FL (81-99); MONO# 0.53 X1000 (0.11-0.59); MONO% 7.5 % (1.7-9.3); MPV 11.6 FL (7.4-10.4); NEUT# 3.88 X1000 (1.4-6.5); NEUT% 55.3 % (42.2-75.2); PLT 253 X1000 (130-400); RBC 3.17 XMIL (4.2-5.4); RDW 13.2 % (11.5-14.5); WBC 7.02 X1000 (4.8-10.8)
[2019-03-02 07:58] LABS: AGAP 10; BUN 17 mg/dL (8-22); CALCIUM 8.7 mg/dL (8.8-10.2); CHLORIDE 109 mmol/L (98-107); COSMO 285; CREATININE 0.4 mg/dL (0.5-0.9); ESTIMATED GFR > 60; GLUCOSE 104 mg/dL (70-104); SODIUM 142 mmol/L (136-145); TCO2 23 mmol/L (25-35)
[2019-03-02] MEDS: PROTONIX PO SCH (09:18)
[2019-03-02] MEDS: VALIUM PO SCH ×2 (09:18→20:56)
[2019-03-02] MEDS: CULTURELLE PO SCH ×2 (09:18→20:56)
[2019-03-02] MEDS: CALTRATE 600 PO SCH (09:18)
[2019-03-02] MEDS: FOLIC ACID PO SCH (09:18)
[2019-03-02] MEDS: VITAMIN B-1 PO SCH (09:18)
[2019-03-02] MEDS: ASPIRIN PO SCH (09:18)
[2019-03-02] MEDS: LOVENOX SUBQ SCH (09:20)
[2019-03-02] MEDS: NS 1,000 ML IV SCH (09:51)
--- NOTE | 2019-03-02 16:12 | PROGRESS NOTE ---
DATE: 03/02/2019 SUBJECTIVE: Patient has no major complaints. OBJECTIVE: Vital Signs: Blood pressure is 153/93, heart rate 79, respiratory rate 17, and temperature 97.3 degrees, satting 96% on room air. Cardiovascular: Regular rate and rhythm. Pulmonary: Bilateral breath sounds. Clear to auscultation. GI: Abdomen was soft, nontender, nondistended. Bowel sounds are positive. Extremity exam: No clubbing or cyanosis. Lymphatic exam: No peripheral edema. Neurological: Exam was nonfocal. LABORATORY DATA: White count is 7, H and H 9 and 29, platelets 253. Basic was normal. PROBLEM LIST: 1. Transient hypotension that has since resolved. She is not typically on any medications. Now her blood pressure, if anything, is a little on the high side, but we will continue to monitor. Stopped IV fluids. 2. History of CVA and cerebral palsy and persistent right hemiplegia with unlikely resolution, and she is a total care patient at this point. 3. Disposition: Anticipate discharge once her financial and long-term placement is completed. 4. Staphylococcus epidermidis urinary tract infection. She has completed her course of antibiotics. cc: Johnny Franco MD
[2019-03-02] MEDS: MELATONIN PO SCH (20:56)
[2019-03-02] MEDS: MOTRIN PO PRN (20:56)
[2019-03-03] MEDS: PROTONIX PO SCH ×2 (06:49→09:29)
[2019-03-03] MEDS: LOVENOX SUBQ SCH (09:28)
[2019-03-03] MEDS: CALTRATE 600 PO SCH (09:29)
[2019-03-03] MEDS: FOLIC ACID PO SCH (09:29)
[2019-03-03] MEDS: ASPIRIN PO SCH (09:29)
[2019-03-03] MEDS: VITAMIN B-1 PO SCH (09:29)
[2019-03-03] MEDS: CULTURELLE PO SCH ×2 (09:29→21:08)
[2019-03-03] MEDS: VALIUM PO SCH ×2 (09:30→21:08)
[2019-03-03 13:21] LABS: URINE SOURCE CATH
[2019-03-03 13:34] LABS: BILIRUBIN URINE NEGATIVE (NEGATIVE); BLOOD URINE 4+ (NEGATIVE); CLARITY VERY CLOUDY (CLEAR); COLOR YELLOW; GLUCOSE URINE NEGATIVE (NEGATIVE); KETONE URINE NEGATIVE (NEGATIVE); LEUKOCYTES URINE TRACE (NEGATIVE); NITRITE URINE POSITIVE (NEGATIVE); PROTEIN URINE TRACE mg/dL (NEGATIVE); SP GRAVITY URINE 1.015; UROBILINOGEN URINE NORMAL
[2019-03-03 13:36] LABS: URINE BACTERIA 4+ /HFP; URINE CAST NONE SEEN /LPF; URINE CRYSTAL NONE SEEN /HPF; URINE EPITHELIAL CELLS <10 /HPF (<10); URINE RBC TNTC /HPF (<10); URINE YEAST NONE SEEN /HPF
[2019-03-03] MEDS ORDERED: NS 1,000 ML IV ONE (14:29)
[2019-03-03] MEDS: LEVAQUIN 500 MG/D5W 500 MG/100 ML IVPB IV SCH (16:38)
--- NOTE | 2019-03-03 17:46 | CONSULTATION ---
DATE OF CONSULTATION: 03/03/2019 CHIEF COMPLAINT: Unable to urinate. HISTORY OF PRESENT ILLNESS: Ms. Pereira is a 44-year-old, pleasant female who had difficulty urinating today. Attempts were made to place a catheter. Difficulty was encountered and I was consulted. The patient has a history of cerebral palsy and stroke and was admitted this time for issues with the right-sided swelling. She is also noted to have a bladder infection with Staph epidermidis in January. Recent culture at the beginning of February was negative. The patient states to me that she was unable to urinate after 8 a.m. this morning and had not gone in about 5 hours. She was in a fair amount of pain from not being able to go. She has not encountered this problem before. PAST MEDICAL HISTORY: History of cerebral palsy, history of stroke in August 2018, anxiety, depression, bipolar, and hypertension. PAST SURGICAL HISTORY: Left hip and bilateral ankle surgery. SOCIAL HISTORY: Per the H and P, the patient is a former smoker. No known alcohol or drug use. FAMILY HISTORY: None known. ALLERGIES: To latex and penicillins. MEDICATIONS: Here, Tylenol p.r.n., aspirin daily, calcium carbonate daily, Valium daily. Enoxaparin sodium scheduled daily. Folic acid daily. Ibuprofen p.r.n., lactobacillus daily. Melatonin at night. Zofran p.r.n., Protonix daily, and vitamin B1 daily. PHYSICAL EXAMINATION: Vitals: Temperature 98.3, pulse rate 99, respiratory rate 18, blood pressure 159/96, O2 saturation is 100. General: The patient is in mild distress. Trachea is midline. Extraocular motions are intact, grossly. Abdomen: Soft, but tender in the suprapubic region due to bladder distention. Extremities: The patient has some contracture of the right lower and upper extremities, especially the hand and wrist. Skin: [place], warm, and dry. : The patient has mild swelling of the labia, especially in the upper region with numerous sebaceous cysts. Urethra and surrounding labia were prepped with Betadine and a catheter inserted. Approximately 900 mL of urine were removed. Urine was cloudy, odiferous and very dark. There were chunks of material noted to be coming out of the catheter at the end. A Mancuso catheter was then placed with urine sent for UA and also the chunky material sent for cytology. ASSESSMENT AND PLAN: 1. Would recommend IV fluids for 24 hours. Leave the Mancuso in place until the urine is clear and no longer contains cellular debris. This may improve patient's ability to urinate on her own. 2. IV antibiotics. This was discussed with Dr. Franco, who has already started them. 3. Consult Urology if cytology suggests any kind of neoplasm. Thank you for the opportunity to take care of this patient. cc: DO NAVI Victoria
--- NOTE | 2019-03-03 18:27 | PROGRESS NOTE ---
DATE: 03/03/2019 SUBJECTIVE: Patient has no major complaints. OBJECTIVE: Vital Signs: Blood pressure 159/96, heart rate 99, respiratory rate of 19, temperature 98.3, 100% on room air. Cardiovascular: Regular rate and rhythm. Pulmonary: Bilateral breath sounds, clear to auscultation. GI: Soft, nontender, nondistended. Bowel sounds are positive. LABORATORY DATA: UA today showed [id number]-count red blood cells, 10 to 20 white blood cells, positive nitrites, was very cloudy. PROBLEM LIST: 1. Urinary retention. There was some difficulty getting in the Mancuso, but we consulted Dr. Mathias, TECHNICAL PROJECT MANAGER, who was very helpful in getting Mancuso in. [place] there was likely a strong component of infection. Hopefully, nothing malignant, but there was some solid material that was sent off for pathology. We will treat empirically for urinary tract infection. She had Staph epi last time, have initiated Levaquin and follow. 2. Hypotension, that is resolved. 3. History of cerebrovascular accident. 4. Cerebral palsy. We are continuing measures. DISPOSITION: Anticipate while we are just pending placement at this point. cc: Johnny Franco MD
[2019-03-03] MEDS: MELATONIN PO SCH (21:08)
[2019-03-03] MEDS: MOTRIN PO PRN (21:08)
[2019-03-03] MEDS: TYLENOL PO PRN (23:08)
[2019-03-04] MEDS ORDERED: NS 1,000 ML ONE (03:47)
[2019-03-04] MEDS: NS 1,000 ML IV SCH ×2 (03:47→13:36)
[2019-03-04] MEDS: PROTONIX PO SCH (06:42)
[2019-03-04 08:13] LABS: BASO# 0.03 X1000 (0.0-0.2); BASO% 0.4 % (0.0-0.8); EOS# 0.08 X1000 (0.0-0.7); EOS% 1.1 % (0.0-10.0); HEMATOCRIT 29.7 % (37.0-47.0); HEMOGLOBIN 9.9 g/dL (12.0-16.0); IMM GRAN# 0.02 X1000 (0.0-0.04); IMM GRAN% 0.3 % (0.0-0.5); LYMPH# 0.92 X1000 (1.2-3.4); LYMPH% 12.2 % (20.5-51.1); MCHC 33.3 g/dL (33-37); MCV 93.1 FL (81-99); MONO# 0.43 X1000 (0.11-0.59); MONO% 5.7 % (1.7-9.3); MPV 11.8 FL (7.4-10.4); NEUT# 6.06 X1000 (1.4-6.5); NEUT% 80.3 % (42.2-75.2); PLT 231 X1000 (130-400); RBC 3.19 XMIL (4.2-5.4); RDW 13.4 % (11.5-14.5); WBC 7.54 X1000 (4.8-10.8)
[2019-03-04 08:56] LABS: AGAP 13; BUN 12 mg/dL (8-22); CALCIUM 8.3 mg/dL (8.8-10.2); CHLORIDE 109 mmol/L (98-107); COSMO 286; CREATININE 0.4 mg/dL (0.5-0.9); ESTIMATED GFR > 60; GLUCOSE 115 mg/dL (70-104); POTASSIUM 3.7 mmol/L (3.5-5.1); SODIUM 143 mmol/L (136-145); TCO2 21 mmol/L (25-35)
[2019-03-04] MEDS: FOLIC ACID PO SCH (11:16)
[2019-03-04] MEDS: ASPIRIN PO SCH (11:16)
[2019-03-04] MEDS: VITAMIN B-1 PO SCH (11:17)
[2019-03-04] MEDS: VALIUM PO SCH ×2 (11:17→20:17)
[2019-03-04] MEDS: LOVENOX SUBQ SCH (11:17)
[2019-03-04] MEDS: CULTURELLE PO SCH ×2 (11:17→20:17)
[2019-03-04] MEDS: CALTRATE 600 PO SCH (11:17)
[2019-03-04] MEDS: ZOFRAN ODT PO PRN (13:36)
[2019-03-04] MEDS: LEVAQUIN 500 MG/D5W 500 MG/100 ML IVPB IV SCH (13:37)
--- NOTE | 2019-03-04 15:54 | PROGRESS NOTE ---
DATE: 03/04/2019 OBJECTIVE: Vital signs: Blood pressure is 131/69, heart rate of 108, respiratory rate 18, temperature 98 degrees. Cardiovascular: Regular rate and rhythm. Pulmonary: Bilateral breath sounds clear to auscultation. GI: Soft, nontender, nondistended. Bowel sounds are positive. Extremities: No clubbing or cyanosis. Lymphatic: No peripheral edema. Neurological: Nonfocal. LABORATORY DATA: White count 7, hemoglobin and hematocrit 9.9 and 29, platelets 231,000. PROBLEM LIST: 1. Urinary retention. She is status post Mancuso which is draining well, per Dr. Mathias. I appreciate his input. Cytology has been sent off. She likely has a new UTI, although culture right now is pending. So something may be growing, I do not have any data yet. She is currently on Levaquin based on previous sensitivities but this may need to be adjusted. 2. Hypotension. That is stable currently. 3. History of cerebrovascular accident, cerebral palsy. Continue supportive measures. DISPOSITION: She will be discharged when she is allowed to go back home. cc: Johnny Franco MD
[2019-03-04] MEDS: MELATONIN PO SCH (20:17)
[2019-03-04] MEDS ORDERED: AYR NASAL SPRAY NAS PRN (23:25)
[2019-03-05] MEDS: TYLENOL PO PRN (00:58)
[2019-03-05] MEDS: LOVENOX SUBQ SCH (09:03)
[2019-03-05] MEDS: PROTONIX PO SCH (09:03)
[2019-03-05] MEDS: VALIUM PO SCH ×2 (09:03→21:35)
[2019-03-05] MEDS: CULTURELLE PO SCH ×2 (09:03→21:35)
[2019-03-05] MEDS: VITAMIN B-1 PO SCH (09:03)
[2019-03-05] MEDS: ASPIRIN PO SCH (09:03)
[2019-03-05] MEDS: LEVAQUIN PO SCH (09:03)
[2019-03-05] MEDS: CALTRATE 600 PO SCH (09:03)
[2019-03-05] MEDS: FOLIC ACID PO SCH (09:03)
--- NOTE | 2019-03-05 10:21 | Diag Imaging Result Doc PS360 ---
EXAM: CT ABD/PELVIS W/IV CONT ONLY HISTORY: recurrent UTI, urine retention TECHNIQUE: Routine CT abdomen and pelvis with IV contrast. COMPARISON: None. FINDINGS: The lung bases show dependent atelectasis left greater than right. There is a 12 x 9 x 9 mm calculus within the right renal pelvis. There is mild associated hydronephrosis. There is enhancement of the proximal right ureter and renal pelvis consistent with ureteritis/pyelitis. There is a 6 mm calculus within the right lower pole calyx. There is mild associated right perirenal edema. The appendix is in a retrocecal location in close proximity to the right kidney and demonstrates mild periappendiceal soft tissue stranding thought to be related to the adjacent perirenal edema. There is gas within the tip of the appendix. Appendiceal diameter is 7 mm. Correlate clinically. The left kidney shows no hydronephrosis. There are two small nodules within the left kidney, approximately 5 mm, measuring slightly greater than water density. Small solid nodules cannot be excluded and follow-up with dedicated renal CT could be considered. There is a Mancuso catheter within the bladder. There is diffuse bladder wall thickening and perivesical soft tissue stranding compatible with cystitis. There is presacral edema. There are bilateral ovarian cysts measuring up to 3 cm. There is scattered atherosclerotic calcification. The liver, spleen, pancreas, and adrenal glands are unremarkable. There is linear high attenuation within the stomach of uncertain significance. No calcified gallstones. No small bowel distention. No free air. There is mild constipation. There is gas within the anterior abdominal wall most compatible with iatrogenic injections. Correlate clinically. IMPRESSION: 1.12 mm calculus right renal pelvis with associated pyelitis and ureteritis and perinephric edema. 2.Retrocecal appendix with associated soft tissue stranding and borderline diameter. Suspect findings are secondary to adjacent renal inflammation as opposed primary appendiceal pathology. Correlate clinically. 3.Right lower pole calyceal renal calculus 6 mm. 4.Indeterminate subcentimeter left renal nodules. Consider follow-up dedicated renal CT. 5.Findings compatible with cystitis with perivesical fluid and presacral edema. 6.Dependent atelectasis left greater than right. 7.Mild constipation. 8.This exam was performed using automated exposure control, adjustment of mA or kV according to patient size, and/or use of iterative reconstruction technique. Electronically signed by Charmaine Balderas/15/2019 10:19 AM
[2019-03-05] MEDS ORDERED: VANCOMYCIN IV PER PHARMACY MISC SCH (12:00)
[2019-03-05] MEDS ORDERED: VANCOMYCIN 1,700 MG in NS 250 ML IV ONE (12:30)
[2019-03-05] MEDS: NS 1,000 ML IV SCH ×2 (17:20→21:32)
[2019-03-05] MEDS ORDERED: DIPRIVAN 1% ONE (17:21)
[2019-03-05] MEDS ORDERED: VERSED ONE (17:23)
--- NOTE | 2019-03-05 17:53 | CONSULTATION ---
DATE OF CONSULTATION: 03/05/2019 CHIEF COMPLAINT: Right renal stones with hydronephrosis and hydroureter, and concern for sepsis. HISTORY OF PRESENT ILLNESS: Ms. Pereira is a 44-year-old female who presented to the emergency room back on 01/29/2019, complaining of right arm and right leg pain and swelling. Concern arose for possible DVT. Had an elevated white blood cell count and has been treated for cellulitis. The patient has had intermittent hypotension per report and tachycardia with concerns for sepsis. The patient has been unable to urinate and had a catheter placed yesterday by FELT CUTTING MACHINE OPERATOR, with sediment that returned versus possible malignancy. A CT scan was obtained today which showed stranding around the kidney and ureter as well as obstructing renal pelvis stone, measuring approximately 1.2 cm. Hospitalist transferred to [facility] for evaluation by Urology and consideration for cystoscopy and ureteral stent placement. The patient states she last ate around 8:00 this morning. Has had prior kidney stones and has passed this spontaneously per her mother's report. Has had chills, denies any nausea, vomiting, or subjective fevers. ALLERGIES: Latex and penicillin. MEDICATIONS: 1. Tylenol 650 mg p.o. every 6 hours p.r.n. 2. Aspirin 81 mg p.o. daily. 3. Calcium carbonate 600 mg p.o. daily. 4. Valium 5 mg p.o. b.i.d. 5. Lovenox 40 mg subcutaneously every 24 hours. 6. Folic acid 0.4 mg p.o. daily. 7. Motrin 400 mg p.o. t.i.d. 8. Levaquin 250 mg p.o. daily. 9. Zofran 4 mg p.o. q.4 hours. 10. Protonix 40 mg p.o. 11. Vancomycin 1300 mg. 12. Thiamine 200 mg p.o. daily. PAST MEDICAL HISTORY: 1. Cerebral palsy. 2. Stroke in August 2018, with right-sided weakness. 3. Anxiety. 4. Depression. 5. Bipolar. 6. Hypertension. PAST SURGICAL HISTORY: 1. Left hip surgery. 2. Bilateral ankle surgery. SOCIAL HISTORY: Former smoker. Denies alcohol or illicit drug use. FAMILY HISTORY: Denies family history of malignancy. PHYSICAL EXAMINATION: Vital Signs: Temperature 100.2, heart rate 129, blood pressure 141/96, oxygen saturation 98%. General: Mild distress, alert and oriented x3. The patient does have some difficulties with speech, answers most questions in 1 to 2 word answers. She is alert and oriented to person, place, time, and situation. HEENT: Normocephalic, atraumatic. Pupils equal, round, reactive to light. Mucous membranes moist. Neck: Trachea midline with no palpable nodules or thyromegaly. Cardiovascular: S1, S2 heart sounds. No murmur, rubs, or gallops. Pulmonary: Good respiratory effort without audible wheezing or rales. Abdomen: Soft, nondistended. Tenderness to palpation, most prominent on the right abdomen and right flank. : Ureteral catheter in place draining clear yellow urine. Suprapubic discomfort and right CVA tenderness. Extremities: The patient does have some contractures of the right upper extremity and is unable to move this. The patient does have weakness of bilateral lower extremities, right greater than left. Skin: No obvious skin rashes or lesions. Neurologic: Alert and oriented to person, place, time, and situation. The patient speaks in short answers. LABS: White blood cell count 7.5, hemoglobin 9.9, hematocrit 29.7, platelets 231,000. Sodium 143, potassium 3.7, chloride 109, bicarb 21, BUN 12, creatinine 0.4, glucose 115. Urinalysis: Nitrite positive, too numerous to count RBCs, trace leukocytes, 4+ bacteria. IMAGING: CT abdomen/pelvis reviewed which showed an obstructing right renal pelvis stone with associated hydronephrosis and stranding, with concerns for pyelitis and urethritis. Urethral catheter in place inside the bladder. She has a 6 mm lower pole renal stone as well as a renal stone leading to perinephric stranding. ASSESSMENT AND PLAN: Ms. Pereira is a 44-year-old with depression, anxiety, cerebral palsy, history of prior stroke, nephrolithiasis who presents in evaluation for right nephrolithiasis with hydronephrosis and urinary tract infection. The patient has 2 stones within the kidney itself, one in the renal pelvis and one in the lower pole of the kidney with associated stranding of the ureter and renal pelvis. Concern for possible infection. The patient has been tachycardic with intermittent low blood pressures per report, as well as elevated temperatures. Concern arises for possible urinary tract infection leading to sepsis from obstruction. The patient was referred to [facility] for evaluation and possible ureteral stenting. Imaging was reviewed. In talking the patient, I recommended cystoscopy, bilateral retrograde pyelograms, and placement of right ureteral stent. Risks, benefits, and alternatives of the surgical procedure were discussed with the patient and the patient's significant other, and they both elected to proceed. cc: Enrique Russell MD MTDD
[2019-03-05] MEDS: DILAUDID ONE ×2 (18:33→18:36)
[2019-03-05] MEDS ORDERED: NS 1,000 ML ONE (18:55)
[2019-03-05] MEDS: MELATONIN PO SCH (21:35)
--- NOTE | 2019-03-05 22:28 | PROGRESS NOTE ---
DATE: 03/05/2019 SUBJECTIVE: The patient is actually a little bit more verbal this morning. She states she feels terrible. She is having chills. PHYSICAL EXAM: Vital Signs: Temperature 99, pulse 132, respiratory 22, BP 137/96. General: Patient is awake. She is in no respiratory distress, but is obviously somewhat ill-appearing. HEENT: Normocephalic. Neck: Supple. CARDIOVASCULAR: Regular rate. Chest: Clear. Abdomen: Soft. ASSESSMENT: 1. Urinary retention. Patient recently had a urinary tract infection, was placed on antibiotics and repeat culture was negative. Currently, she is having some urinary retention and was started on antibiotics over the weekend. 2. Hypertension. 3. Supraventricular tachycardia. 4. History of cerebrovascular accident with cerebral palsy. PLAN: CT has been performed. The patient has some obstructive uropathy. She will be transferred to [facility] for urology, and likely surgical intervention. cc: Brian Hernandez MD
[2019-03-06] MEDS: VANCOMYCIN 1,300 MG in NS 250 ML IV SCH ×2 (00:33→15:10)
[2019-03-06] MEDS ORDERED: VANCOMYCIN 1,300 MG in NS 250 ML IV SCH (01:00)
--- NOTE | 2019-03-06 03:04 | OPERATIVE NOTE ---
PROCEDURE DATE: 03/03/2019 PREOPERATIVE DIAGNOSES: 1. Urinary tract infection. 2. Right hydronephrosis. 3. Right renal stone. POSTOPERATIVE DIAGNOSES: 1. Urinary tract infection. 2. Right hydronephrosis. 3. Right renal stone. PROCEDURES PERFORMED: 1. Cystoscopy. 2. Bilateral retrograde pyelograms. 3. Right diagnostic ureteroscopy. 4. Right lower pole ureteral stent placement. SURGEON: Enrique Russell MD. PROCUREMENT INTERN: None. COMPLICATIONS: None. BLOOD LOSS: Minimal. DRAINS: A 6 x 24-Honduran ureteral stent, 16-Honduran Mancuso catheter. SPECIMEN: None OPERATIVE FINDINGS: The patient had external evidence of enlarged labia minora which once retracted it was easy to visualized the vaginal tissue, and the urethra appeared to be normal. I was able to pass the cystourethroscope into the urethra, it was normal caliber, no evidence of any stricture disease or papillary lesions. On entry into the bladder the entire bladder was inspected, a moderate amount of sediment and stone debris was seen at the base of the bladder, significant trabeculations and cellules throughout the bladder as well. No obvious papillary lesions were seen. Several erythematous areas were in place related to her Mancuso catheter. Both ureteral orifices visualized with efflux of urine slightly more sediment appearing coming from the right ureteral orifice. An open-ended catheter was passed through the scope, and left retrograde pyelogram was performed which showed a normal ureter that was delicate with normal collecting system, which drained appropriately, no evidence of filling defects or obstruction. Mechanical Operator fluoroscopy did show a stone present within the right collecting system. 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 I was able to place a stent; however, the stent preferentially went into the upper pole in the non- hydronephrotic section. Subsequently, I performed a diagnostic ureteroscopy and was able to visualize both portions of the renal pelvis. I preferentially passed a wire into the lower interpolar moiety, and passed a 6 x 24 cm stent which showed good drainage through and around the stent. This terminated the procedure. INDICATION FOR PROCEDURE: Ms. Pereira is a 44-year-old who presents in consultation regarding fevers and concern for sepsis. The patient has been in the hospital now for over a month, and was having tachycardia and fevers over the weekend. The patient had a Mancuso catheter inserted with urine culture showed evidence of a urinary tract infection. A CT of pelvis was performed today which showed an obstructing renal pelvis stone measuring approximately 1.2 cm, as well as a lower pole right renal stone. Urology was consulted for further recommendations and consideration for cystoscopy and right ureteral stent placement. Images reviewed and talking with the patient it was recommended to proceed with the procedure. Risks, benefits, and alternatives of surgical procedure was discussed with the patient and her significant other. After a complete discussion the patient elected to proceed. DESCRIPTION OF PROCEDURE: After informed consent was obtained the patient brought to the operating room and placed on the operating table in supine position. The patient has received antibiotics throughout the day, no other antibiotics were necessary. The patient underwent LMA placement, was placed into a dorsal lithotomy position, was prepped and draped in the usual sterile fashion. A preoperative time-out was performed with all parties in agreement, including anesthesia, surgical and nursing staff. At which time a 21-Honduran cystourethroscope was inserted through the urethra showing normal caliber urethra, no evidence of any stricture disease. The patient did have evidence of prominent labia minora that were once retracted allowed for good visualization of the urethra and vaginal mucosa. Cystourethroscope passed easily into the bladder. The bladder was inspected which showed evidence of several small cellules and diverticula, and grade 2 trabeculations throughout the bladder. Both ureteral orifices were visualized. On the left side there was good drainage of clear urine, on the right side there was what appeared to be some sediment excreting from the ureteral orifice. There was a significant amount of stone debris present in the base of the bladder which was irrigated out, at which time a 5-Honduran open-ended ureteral catheter was passed through the scope flushing all bubbles, and the left ureteral orifice was cannulize and injecting Omnipaque outlined a normal ureter. No evidence of any obstruction with a delicate collecting system. No evidence of any filling defects. This drained rapidly with no evidence of retained contrast. Next the right side city treasurer fluoroscopy showed calcifications seen within the inner pole and lower pole region, the largest being in the renal pelvis itself. The open-ended catheter was inserted into the right ureteral orifice and injected, which showed what appeared to be a bifid system with separation of the upper pole from the lower pole and interpolar region, this bifid system seemed to have a take off point in the midureter that created a Y-shaped appearance of the kidney. Obvious hydronephrosis was seen in the lower interpolar moiety; however, the upper pole seemed to be decompressed. I passed a Zip wire through the scope and this preferentially went to the upper pole, at which time I passed a 6 x 24 stent over the wire and unfortunately it coiled up into the upper pole and with manipulation I could not get it to go into the lower pole moiety. The decision was made to perform right ureteroscopy. At which time a semi-rigid ureteroscope was then passed through the urethra and into the bladder. I was able to cannulate the right ureteral orifice using a PTFE wire, and passed the ureteroscope up into the proximal ureter at which time an obvious splitting of the ureter into the upper pole and lower pole moiety was seen. I passed a PTFE wire through the scope and able to cannulate into the lower pole moiety under fluoroscopic guidance was easily seen to go into that portion. It appears that the patient had two ureteropelvic junctions. The semi-rigid ureteroscope was slowly withdrawn, and a cystourethroscope was then reinserted and backloaded over the wire, and a 6 x 24-Honduran stent was then passed through the scope and seen to coil within the lower pole moiety, and seen to endoscopically coil within the bladder. Good drainage was seen through and around the stent. The patient's bladder was cycled multiple times, and contrast seen to leave the collecting system and no longer have its previous hydronephrotic appearance, which now includes with the placement if stent the patient had placement of a Mancuso catheter into the bladder with good drainage, and inflated with 10 mL of sterile water and placed to gravity drainage. The patient was then awoken and was taken to recovery in stable condition. cc: Enrique Russell MD MTDNick
[2019-03-06] MEDS: MOTRIN PO PRN (04:03)
[2019-03-06] MEDS: NS 1,000 ML IV SCH ×3 (06:40→15:11)
[2019-03-06] MEDS: PROTONIX PO SCH (06:40)
--- NOTE | 2019-03-06 08:04 | PROGRESS NOTE ---
DATE: 03/06/2019 SUBJECTIVE: Postop day 1 from cystoscopy, bilateral retrograde pyelograms, right diagnostic ureteroscopy, and right ureteral stent placement. The patient has been doing well. She denies significant discomfort. She states she has some mild pressure on the left side of her abdomen, which is improved from prior. She denies any CVA tenderness. No suprapubic tenderness. Urethral catheter in place, draining clear yellow urine. The patient did have some sediment in her bladder yesterday, as well as what appeared to be small stones. Denies any nausea or vomiting. Tolerating p.o. intake. OBJECTIVE: Vital Signs: Temperature 98.6, heart rate 86, blood pressure 81/43, oxygen saturation 95% on room air. General: No acute distress. Resting comfortably in bed. Alert and oriented to person, place, and situation. Respiratory: Good respiratory effort without audible wheezing or rales. Cardiovascular: Regular rate and rhythm. Abdomen: Soft, nontender, nondistended. No palpable masses. : No suprapubic tenderness. Urethral catheter in place draining clear yellow urine. A small amount of sediment present. Labs: A urine culture from 03/03/2019 growing Staphylococcus epidermidis. Sensitive to vancomycin. ASSESSMENT AND PLAN: Ms. Pereira is a 44-year-old with depression, anxiety, cerebral palsy, and a history of prior stroke who presents in evaluation for right nephrolithiasis. The patient went to the operating room on 03/05/2019, underwent cystoscopy, bilateral retrograde pyelograms, and diagnostic ureteroscopy, and placement of stent for concern for urinary tract infection. The patient clinically seems to be doing better. She did have some episodes of tachycardia overnight. Difficult to know if this related to infection versus baseline anxiety. The patient's bladder was quite distended yesterday and significantly trabeculated. Concern arises that patient does not empty her bladder adequately. We will keep the indwelling catheter in at this time. Could consider a voiding trial during this hospitalization. From a urologic standpoint, she is making urine with no evidence of any blood. I think overall she is doing well. The patient continues to have issues with facility placement, has been in the hospital now since the 29 of January. We will continue to monitor clinically from urologic standpoint. Will likely ultimately need to undergo a right ureteroscopy and removal of her stone, will tentatively plan to do this next week. Please call with questions or concerns. cc: Enrique Russell MD MTDNick
--- NOTE | 2019-03-06 09:43 | Diag Imaging Result Doc PS360 ---
RETROGRADES 2 OR 3 FILMS - 03/05/2019 INDICATION: RT. SIDE PAIN, WILBUR. RETROGRADES, PLACEMENT RT. STENT TECHNIQUE: The exam was performed by the patient's urologist. Total fluoroscopy time was 59 seconds. 44 images were obtained. COMPARISON: CT from 03/05/2019 FINDINGS: The stone in the right renal collecting system is visible on the manager nursing images. The left ureter and renal collecting system are normal. On the right side, there is a short to moderate segment of duplication of the ureters. The stone is in the lower pole collecting system. A nephroureteral stent was placed into the lower pole collecting system in good position. 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 Large stone in the lower pole system. Good placement of nephroureteral stent in the lower pole system. Electronically signed by Enrico Montero 03/06/2019 9:40 AM
[2019-03-06] MEDS: VITAMIN B-1 PO SCH (09:49)
[2019-03-06] MEDS: VALIUM PO SCH ×2 (09:49→21:14)
[2019-03-06] MEDS: LEVAQUIN PO SCH (09:49)
[2019-03-06] MEDS: FOLIC ACID PO SCH (09:49)
[2019-03-06] MEDS: ASPIRIN PO SCH (09:49)
[2019-03-06] MEDS: CULTURELLE PO SCH ×2 (09:49→21:14)
[2019-03-06] MEDS: LOVENOX SUBQ SCH (09:50)
[2019-03-06] MEDS: CALTRATE 600 PO SCH (09:54)
--- NOTE | 2019-03-06 14:37 | PROGRESS NOTE ---
DATE: 03/06/2019 SUBJECTIVE: The patient reports feeling fine. She is not having any pain right now. No other complaints noted. OBJECTIVE: Vital Signs: Temperature 98.0 degrees, heart rate 82, respiratory rate 16, blood pressure 110/65, O2 saturation 98% on room air. General Examination: This is a 44-year-old, female lying in bed, in no acute distress. HEENT: Head is normocephalic and atraumatic. Neck: No JVD noted. No carotid bruits. No lymphadenopathy. Cardiovascular Examination: S1 and S2 heard. No murmurs, gallops, or rubs. Regular rate and rhythm. Respiratory Examination: Clear bilaterally to auscultation. No work of breathing or using accessory muscles. Abdomen: Soft, nontender to palpation, nondistended. Bowel sounds present. No organomegaly. There is no suprapubic tenderness noted. There is a Mancuso catheter in place. Neurological Examination: The patient is alert and oriented x3. Moves 4 extremities. Laboratory Data: Reviewed. ASSESSMENT AND PLAN: 1. Right nephrolithiasis. Dr. Russell performed cystoscopy, bilateral retrograde pyelogram, and diagnostic ureteroscopy, and placement of a stent was done yesterday. Clinically, this patient is doing good. Today, she is not complaining of any pain. At this point, we will continue monitoring this patient closely. 2. Hypertension. Blood pressure is under control. We will continue with the same management. 3. History of cerebrovascular accident with cerebral palsy. Aware. 4. Disposition. We will continue to monitor this patient closely. Following recommendations from urology, they mentioned in their note from today that the patient may need to undergo a right ureteroscopy and removal of her stone, that they may do it this week. We will continue to monitor. cc: Heath Valadez MD
[2019-03-06] MEDS: MELATONIN PO SCH (21:14)
[2019-03-07] MEDS: VANCOMYCIN 1,300 MG in NS 250 ML IV SCH ×2 (00:48→21:14)
[2019-03-07] MEDS: NS 1,000 ML IV SCH ×2 (05:57→13:52)
[2019-03-07] MEDS: PROTONIX PO SCH (05:59)
--- NOTE | 2019-03-07 08:44 | PROGRESS NOTE ---
DATE: 03/07/2019 SUBJECTIVE: Postoperative day 2 from cystoscopy, bilateral retrograde pyelograms, and right ureteroscopy with right ureteral stent placement. The patient is doing well this morning. Denies any nausea, vomiting. She seems to be less tachycardic over the past 24 hours. Remains afebrile. Her urine culture is growing Staphylococcus epidermidis. She has had good urinary output from urethral catheter and denies any abdominal pain. OBJECTIVE: Vital Signs: Temperature 98 degrees, pulse rate 95, blood pressure 120/72, oxygen saturation 96%. General: No acute distress. Resting comfortably in bed. Alert and oriented x3. Respiratory: Good respiratory effort without audible wheezing or rales. Abdomen: Soft, nontender. No palpable masses. Genitourinary: No suprapubic tenderness. No CVA tenderness. Urethral catheter in place draining clear yellow urine. Neurologic: Evidence of contractures, most prominent on the right side. ASSESSMENT AND PLAN: Ms. Pereira is a 44-year-old with cerebral palsy, history of stroke, anxiety, depression, and nephrolithiasis who presents in consultation regarding right nephrolithiasis, concern for urinary tract infection with sepsis. The patient was taken to the operating room on 03/05/2019, underwent cystoscopy, bilateral retrograde pyelograms, and diagnostic ureteroscopy of the right kidney and placement of ureteral stent on the right. It seems that her tachycardia has improved. Her urine culture is growing Staphylococcus epidermidis. She remains afebrile and denies any pain this morning. Will continue with indwelling catheter in place. The patient's bladder was significantly distended with trabeculations and several small cellules. I am concerned that the patient does not empty her bladder adequately. The patient has a history of kidney stones and has passed them previously. The patient does have a duplicated renal pelvis on the right side and likely would benefit from ureteroscopy and stone basket extraction. We will tentatively plan to do this next week. We will continue on antibiotics at this time for culture for specific treatment of her urinary tract infection. We will continue to monitor. Please call with questions or concerns. cc: MD NAVI Gerardo
[2019-03-07] MEDS: CALTRATE 600 PO SCH (09:12)
[2019-03-07] MEDS: FOLIC ACID PO SCH (09:12)
[2019-03-07] MEDS: VALIUM PO SCH ×2 (09:12→21:48)
[2019-03-07] MEDS: VITAMIN B-1 PO SCH (09:12)
[2019-03-07] MEDS: ASPIRIN PO SCH (09:12)
[2019-03-07] MEDS: LEVAQUIN PO SCH (09:12)
[2019-03-07] MEDS: CULTURELLE PO SCH ×2 (09:12→21:14)
[2019-03-07] MEDS: LOVENOX SUBQ SCH (09:12)
--- NOTE | 2019-03-07 09:20 | PROGRESS NOTE ---
DATE: 03/07/2019 SUBJECTIVE: Patient is lying in bed with no reports of any pain at this time, or any other complaint. OBJECTIVE: Vital Signs: Temperature 98.4 degrees, heart rate 92, respiratory rate 14, blood pressure 100/69. O2 saturation 98% on room air. General: This is a chronically ill-appearing 44-year-old female lying in bed in no acute distress. HEENT: Head normocephalic and atraumatic. Neck: No JVD noted. No carotid bruits. No thyromegaly. Cardiovascular: S1 and S2 heard. No murmurs, gallops or rubs. Regular rate and rhythm. Respiratory: Clear bilaterally to auscultation. No work of breathing or using accessory muscles. Abdomen: Soft, nontender to palpation. Bowel sounds present. No organomegaly. Extremities: No clubbing, cyanosis, or edema. Peripheral pulses present in both legs. Neurological: Patient is alert and oriented. Moves 4 extremities. LABORATORY DATA: Reviewed. ASSESSMENT AND PLAN: 1. Right nephrolithiasis. Dr. Russell has performed a cystoscopy, bilateral retrograde pyelogram, and diagnostic ureteroscopy. Placement of a stent was done 2 days ago. He is planning to do right-sided ureteroscopy and stone basket extraction during this week. We will follow his recommendations. 2. Hypertension. Blood pressure is under control. We will continue with the same medications. 3. History of CVA with cerebral palsy. Aware. 4. Disposition. At this point, we are following the lead from Urology. Whenever this patient is discharged from Urology standpoint, and considering her issues with placement, I think she may be sent back to [facility]. cc: Heath Valadez MD
[2019-03-07] MEDS: TYLENOL PO PRN (21:14)
[2019-03-07] MEDS: MELATONIN PO SCH (21:14)
[2019-03-07] MEDS: ZOFRAN ODT PO PRN (21:48)
[2019-03-08] MEDS: NS 1,000 ML IV SCH ×4 (03:13→14:10)
[2019-03-08] MEDS: PROTONIX PO SCH (06:27)
[2019-03-08] MEDS: ASPIRIN PO SCH (09:17)
[2019-03-08] MEDS: CULTURELLE PO SCH (09:17)
[2019-03-08] MEDS: VITAMIN B-1 PO SCH (09:17)
[2019-03-08] MEDS: CALTRATE 600 PO SCH (09:17)
[2019-03-08] MEDS: LEVAQUIN PO SCH (09:17)
[2019-03-08] MEDS: FLOMAX PO SCH (09:17)
[2019-03-08] MEDS: VALIUM PO SCH ×2 (09:17→20:39)
[2019-03-08] MEDS: LOVENOX SUBQ SCH (09:17)
[2019-03-08] MEDS: FOLIC ACID PO SCH (09:17)
[2019-03-08] MEDS: VANCOMYCIN 1,300 MG in NS 250 ML IV SCH (15:17)
[2019-03-08] MEDS: ZOFRAN ODT PO PRN (15:17)
--- NOTE | 2019-03-08 16:37 | EKG Report ---
Test Performed on : 03/08/2019 4:28:17 PM Test Reason : Tachycardia Blood Pressure : / mmHG Vent. Rate : 091 BPM Atrial Rate : 091 BPM P-R Int : 150 ms QRS Dur : 072 ms QT Int : 368 ms P-R-T Axes : 041 031 046 degrees QTc Int : 452 ms Normal sinus rhythm. Normal ECG When compared with ECG of 29-JAN-2019 08:21, No significant change was found Confirmed by Hema BILLINGS, Param ([id number]) on 03/09/2019 11:41:24 AM
--- NOTE | 2019-03-08 17:54 | PROGRESS NOTE ---
DATE: 03/08/2019 INTERVAL HISTORY: No acute events overnight. Her pulse has been between 60 to 108. EKG suggests sinus rhythm. SUBJECTIVE: Patient denies any new complaints. The patient's boyfriend is at the bedside. Plan of care discussed with the patient and boyfriend. All of their questions have been answered. We discussed about possible uroscopic procedure later next week, once her urine infection has resolved. OBJECTIVE: Vital Signs: Temperature 98.1 degrees, pulse 59, respirations 16, blood pressure 113/52, saturating 91% on room air. General: Does not appear in any acute distress. HEENT: Oral cavity is moist. Lungs: Air entry bilaterally equal. No wheeze, rhonchi, or crackles. Cardiovascular: S1, S2 normal. Regular. No murmur, rub, or gallop. Abdomen: Soft, nontender. She has a urine catheter in place. It is tympanic to percussion. She does have mild generalized tenderness without rebound or rigidity. Extremities: No lower extremity edema. Neurologic: She is alert. She does have expressive aphasia and she oftentimes becomes frustrated because of that. She has right upper extremity and right lower extremity power 0/5. She has intact sensation in the right upper extremity, but no sensation in right lower extremity. Her left upper extremity and lower extremity sensation is intact. Power is 5/5 in the left upper extremity, about 2 to 3/5 in left lower extremity at the moment. Input and output suggest she has been eating only 50% of her meals. LABS: No CBC or BMP today. MICROBIOLOGY: Blood culture on the 05 of March did not show any growth. She has been on intravenous vancomycin for Staphylococcus epidermidis. ASSESSMENT AND PLAN: 1. Right-sided nephrolithiasis with urine retention status post right ureteric stent and Mancuso catheter on March 05, 2019. The patient to undergo right-sided ureteroscopy and basket stone extraction later next week. Continue intravenous vancomycin and p.o. levofloxacin for staph epidermidis UTI and I will adjust the antibiotic based on her course, as well as basic metabolic panel tomorrow. She had initially presented with sepsis due to urinary tract infection. EKG, however, is normal sinus rhythm and urine culture on March 03 only had a colony count of 80,000 to 90,000, though it was a cath urine. 2. Essential hypertension, history of cerebral palsy, and cerebrovascular accident in August 2018, status post right-sided hemiplegia and expressive aphasia. Continue her home aspirin. She is not listed to be taking atorvastatin. Continue home diazepam for anxiety. 3. Others. Continue home thiamine, pantoprazole for GERD, melatonin for insomnia, ibuprofen for pain, calcium carbonate for GERD. 4. Disposition. Patient remains inside the hospital for need for IV antibiotics as well as definitive urological procedure. She has had a complicated disposition issue. Social Work team on board. cc: Chandu Elizalde MD MTDD
[2019-03-08] MEDS: MELATONIN PO SCH (20:39)
[2019-03-08] MEDS ORDERED: BENADRYL PO ONE (23:03)
[2019-03-09] MEDS: MOTRIN PO PRN ×2 (00:49→08:44)
[2019-03-09] MEDS: PROTONIX PO SCH (06:44)
[2019-03-09 08:16] LABS: BASO# 0.05 X1000 (0.0-0.2); EOS# 0.28 X1000 (0.0-0.7); EOS% 5.8 % (0.0-10.0); HEMOGLOBIN 8.8 g/dL (12.0-16.0); LYMPH# 1.72 X1000 (1.2-3.4); LYMPH% 35.8 % (20.5-51.1); MCH 30.7 PG (27-31); MCHC 32.6 g/dL (33-37); MCV 94.1 FL (81-99); MONO# 0.47 X1000 (0.11-0.59); MONO% 9.8 % (1.7-9.3); MPV 11.5 FL (7.4-10.4); NEUT# 2.28 X1000 (1.4-6.5); NEUT% 47.6 % (42.2-75.2); PLT 229 X1000 (130-400); RBC 2.87 XMIL (4.2-5.4); RDW 13.5 % (11.5-14.5)
[2019-03-09] MEDS: VANCOMYCIN 1,300 MG in NS 250 ML IV SCH (08:36)
[2019-03-09 08:43] LABS: AGAP 10; BUN 5 mg/dL (8-22); CALCIUM 8.5 mg/dL (8.8-10.2); CHLORIDE 106 mmol/L (98-107); COSMO 275; CREATININE 0.4 mg/dL (0.5-0.9); ESTIMATED GFR > 60; GLUCOSE 99 mg/dL (70-104); MAGNESIUM 1.4 mg/dL (1.5-2.7); PHOSPHORUS 3.9 mg/dL (2.7-4.5); POTASSIUM 3.4 mmol/L (3.5-5.1); SODIUM 139 mmol/L (136-145); TCO2 23 mmol/L (25-35)
[2019-03-09] MEDS: CALTRATE 600 PO SCH (08:43)
[2019-03-09] MEDS: FOLIC ACID PO SCH (08:43)
[2019-03-09] MEDS: ASPIRIN PO SCH (08:43)
[2019-03-09] MEDS: LEVAQUIN PO SCH (08:43)
[2019-03-09] MEDS: VALIUM PO SCH ×2 (08:43→22:17)
[2019-03-09] MEDS: VITAMIN B-1 PO SCH (08:43)
[2019-03-09] MEDS: LOVENOX SUBQ SCH ×2 (08:44→17:38)
--- NOTE | 2019-03-09 14:41 | PROGRESS NOTE ---
DATE: 03/09/2019 SUBJECTIVE: No acute events. The patient seems to be doing well. She denies any flank pain. Her ureteral catheter is in place draining clear yellow urine. The patient has remained afebrile and has had improvement in her tachycardia. Clinically I think she is doing better. The patient is being treated for a urinary tract infection with IV antibiotics. OBJECTIVE: Vital Signs: Temperature 97.6, heart rate 73, blood pressure 137/82, oxygen saturation 95% on room air. General: No acute distress. Resting comfortably in bed. Tolerating p.o. intake. Respiratory: Good respiratory effort without audible wheezing or rales. Abdomen: Soft, nontender, and nondistended. No palpable masses. Genitourinary: No suprapubic tenderness. No CVA tenderness. Ureteral catheter in place draining clear yellow urine. LABORATORY DATA: White blood cell count 4.8, hemoglobin 8.8, hematocrit 27, platelets 229,000. Sodium 139, potassium 3.4, chloride 106, bicarbonate 23, BUN 5, creatinine 0.4, glucose 139. ASSESSMENT AND PLAN: Ms. Pereira is a 44-year-old with history of cerebral palsy, hypertension, prior stroke, esophageal reflux disease, who presented with concerns for obstructing renal stone. The patient underwent cystoscopy and ureteral stent placement on Tuesday. The patient has been without symptoms since then. She tolerated her diet. The patient currently is being treated for urinary tract infection. I recommended that she proceed to right ureteroscopy and stone basket extraction. We will plan to perform this next . I reviewed this with the patient. The patient expressed understanding. We will plan to perform cystoscopy, right ureteroscopy, laser lithotripsy and stone basket extraction at that time due her interrenal anatomy. Please call with questions or concerns. cc: Enrique Russell MD MTDD
--- NOTE | 2019-03-09 17:36 | PROGRESS NOTE ---
DATE: 03/09/2019 INTERVAL HISTORY: No acute events overnight. SUBJECTIVE: Patient is sleepy, not in any acute distress. She denies any nausea, vomiting. She states that she has been trying to eat as much as she could. We discussed about urology plan. We discussed about lab tests and answered all of her questions. OBJECTIVE: Vital signs: Currently detect temperature of 98.2 degrees, pulse 99, respiratory rate 16, blood pressure 132/89, saturating 96% on room air. General: She does not appear in any acute distress. HEENT: No conjunctival pallor, cyanosis, clubbing, or icterus. Oral cavity is moist. Lungs: Air entry bilaterally equal. No wheeze, rhonchi, or crackles; however, examination is limited considering her position, and she was not able to sit up. Cardiovascular: S1, S2 is normal. Regular. No murmur, rub, or gallop. Abdomen: Soft, nontender. She has a urine catheter in place. Abdomen: Tympanic to percussion. Mild generalized tenderness without any rebound or rigidity. No lower extremity edema. Neurologic: She is alert. She has expressive aphasic and some paraphasia as well. She has right upper extremity and right lower extremity power of 0/5. She has intact sensation on right upper extremity but no sensation in right lower extremity. Her left upper extremity and left lower extremity sensation and power is intact especially upper extremity. Power was 3/5 on left lower extremity on my previous examination. LABORATORY DATA: Today suggestive of normocytic anemia, normal platelet count. She does have hypokalemia and hypomagnesemia, which is being repleted. Her kidney function is normal. No new microbiological data. Blood culture has not shown any growth. IMAGING: EKG performed yesterday was suggestive of normal sinus rhythm. ASSESSMENT AND PLAN: 1. Right-sided nephrolithiasis with urine retention status post right ureteric stent and Mancuso catheter on 03/05/2019. Patient to undergo right-sided ureteroscopy and basket stone extraction next week . Continue intravenous vancomycin for Staphylococcus epidermidis urinary tract infection and continue to monitor kidney function. She had initially presented with sepsis due to urinary tract infection, which is now resolved. EKG is normal sinus rhythm. 2. Essential hypertension. 3. History of cerebral palsy. 4. Cerebrovascular accident in August 2018, status post right-sided hemiplegia and expressive aphasia. Continue home aspirin. 5. Continue home diazepam for anxiety. Continue pantoprazole for gastrointestinal reflux disease, melatonin for insomnia, ibuprofen for pain, calcium carbonate for gastrointestinal reflux disease. 6. Hypokalemia, hypomagnesemia, being repleted. DISPOSITION: Patient remains inside the hospital as we await her disposition. Apparently patient is awaiting disability approval. Plan of care is discussed with her. All of her questions have been answered. First day of antibiotics was 03/05/2019. cc: Chandu Elizalde MD
[2019-03-09] MEDS: FLOMAX PO SCH (17:38)
[2019-03-09] MEDS: KLOR-CON PO SCH ×2 (17:41→22:17)
[2019-03-09] MEDS: MAGNESIUM SULFATE 2 GM/S.W.I. 2 GM/50 ML IVPB IV SCH ×2 (17:43→18:59)
[2019-03-09] MEDS: MELATONIN PO SCH (22:17)
[2019-03-10] MEDS: VANCOMYCIN 1,300 MG in NS 250 ML IV SCH ×2 (02:54→22:07)
[2019-03-10] MEDS: PROTONIX PO SCH (06:49)
[2019-03-10] MEDS: FOLIC ACID PO SCH (10:36)
[2019-03-10] MEDS: VALIUM PO SCH ×2 (10:36→21:04)
[2019-03-10] MEDS: ASPIRIN PO SCH (10:36)
[2019-03-10] MEDS: CALTRATE 600 PO SCH (10:36)
[2019-03-10] MEDS: VITAMIN B-1 PO SCH (10:36)
[2019-03-10] MEDS: LEVAQUIN PO SCH (10:36)
[2019-03-10] MEDS: LOVENOX SUBQ SCH (10:37)
[2019-03-10] MEDS: FLOMAX PO SCH (10:37)
--- NOTE | 2019-03-10 12:38 | PROGRESS NOTE ---
DATE: 03/10/2019 INTERVAL HISTORY: No acute overnight events. Ms. Pereira is currently sleeping in the bed. She is arousable. She is about to start eating her lunch. Denies any nausea, vomiting, abdominal pain. We discussed about her vitals, physical examination, and urology plan, and answered all of her questions. PHYSICAL EXAMINATION: Vital Signs: Currently, temperature of 97.6 degrees, pulse 83, respiratory rate 17, blood pressure 143/90, saturating 97% on room air. General: She does not appear in any acute distress. Oral cavity is moist. No pallor, cyanosis, clubbing, or icterus. Lungs: Air entry bilaterally equal. No wheeze or rhonchi or crackles. Cardiac: S1, S2 normal. Regular. No murmur, rub, or gallop. Abdomen: Soft, nontender. She has urine catheter in place. Neurologic: She is alert. She is following commands to allow good physical examination. She does have expressive aphasia and paraphasia due to prior history of stroke. She has right upper extremity and right lower extremity power of 0 in 5. She has intact sensation on right upper extremity, but no sensation of right lower extremity. Her left upper extremity and left lower extremity sensation is intact. Power is 3 on 5 on the left lower extremity. This is according to my previous neurological examination. LABS: No new labs today. ASSESSMENT AND PLAN: 1. Right-sided nephrolithiasis with urine retention, status post right ureteric stent, Mancuso catheter on 03/05/2019. The patient to undergo right-sided ureteroscopy and basket stone extraction next . Continue intravenous vancomycin for Staphylococcus epidermidis urinary tract infection, and continue to monitor kidney function. She had previously presented with sepsis due to urinary tract infection, which has now resolved. 2. Essential hypertension. 3. History of cerebral palsy. 4. History of cerebrovascular accident in August 2018, status post right-sided hemiplegia and expressive aphasia. I will continue home aspirin. 5. I will confirm the lipid panel and will consider starting her on atorvastatin. 6. Continue home diazepam for anxiety, pantoprazole for gastroesophageal reflux disease, melatonin for insomnia, ibuprofen for pain, calcium carbonate for gastroesophageal reflux disease. 7. Hypokalemia and hypomagnesemia, repleted, and follow up with BMP. 8. Disposition. Patient remains inside the hospital. She does have a very complex disposition issue as she is awaiting disability. First day of antibiotics was 03/05/2019. Plan of care was discussed with her. All of her questions have been answered. cc: Chandu Elizalde MD
[2019-03-10] MEDS: TYLENOL PO PRN (14:46)
[2019-03-10] MEDS: MOTRIN PO PRN (15:48)
[2019-03-10 19:58] LABS: AGAP 13; BUN 5 mg/dL (8-22); CALCIUM 8.6 mg/dL (8.8-10.2); CHLORIDE 105 mmol/L (98-107); COSMO 275; CREATININE 0.4 mg/dL (0.5-0.9); ESTIMATED GFR > 60; GLUCOSE 102 mg/dL (70-104); POTASSIUM 3.5 mmol/L (3.5-5.1); SODIUM 139 mmol/L (136-145); TCO2 21 mmol/L (25-35)
[2019-03-10] MEDS: MELATONIN PO SCH (21:05)
[2019-03-10] MEDS: LIPITOR PO SCH (21:06)
[2019-03-11] MEDS: PROTONIX PO SCH (06:39)
[2019-03-11] MEDS: ASPIRIN PO SCH (08:53)
[2019-03-11] MEDS: LOVENOX SUBQ SCH ×2 (08:53→11:09)
[2019-03-11] MEDS: VITAMIN B-1 PO SCH (08:53)
[2019-03-11] MEDS: LEVAQUIN PO SCH (08:53)
[2019-03-11] MEDS: FOLIC ACID PO SCH (08:53)
[2019-03-11] MEDS: FLOMAX PO SCH (08:53)
[2019-03-11] MEDS: CALTRATE 600 PO SCH (08:53)
[2019-03-11] MEDS: VALIUM PO SCH ×2 (08:53→20:00)
[2019-03-11] MEDS: MOTRIN PO PRN (11:09)
[2019-03-11] MEDS: TYLENOL PO PRN (14:57)
[2019-03-11] MEDS: VANCOMYCIN 1,500 MG in NS 250 ML IV SCH (14:57)
--- NOTE | 2019-03-11 19:12 | PROGRESS NOTE ---
DATE: 03/11/2019 INTERVAL HISTORY: No acute overnight events. SUBJECTIVE: The patient is sitting in the bed. Her boyfriend is at bedside. Denies any new complaints. Currently vitals temperature of 97.6 degrees, pulse 86, respiratory 16, blood pressure 147/91, saturating 100% on room air. PHYSICAL EXAMINATION: General: Does not appear in any acute distress. Oral cavity is moist. No pallor, cyanosis, clubbing or icterus. Air entry bilaterally equal. No wheeze, rhonchi, crackles. S1, S2 normal regular. No murmur, rub, or gallop. Abdomen: Soft, nontender. She has urine catheter in place. Neurologic: She is alert, following commands. She has expressive aphasia and paraphasia due to prior history of stroke in October 2018. She has a right upper extremity, right lower extremity power 0 on 5. Intact sensation on right upper extremity but no sensation of right lower extremity. Her left upper extremity and left lower extremity sensation is intact. She has power of 3 on 5 on lower extremity and 5 in 5 on upper extremity. LABS: Yesterday her BMP was suggestive of essentially normal BMP and random vancomycin levels were 9.9. ASSESSMENT AND PLAN: 1. Right-sided nephrolithiasis with urinary retention status post right ureteric stent, Mancuso catheter on March 05 and the patient to undergo right-sided ureteroscopy and basket stone extraction on . Continue intravenous vancomycin for Staph epidermidis urinary tract infection. Day 1 of antibiotics is March 05, her sepsis because of urinary tract infection has now resolved. 2. History of cerebrovascular accident in August 2018 status post right-sided hemiplegia and expressive aphasia. Continue home aspirin and start patient on atorvastatin. 3. History of cerebral palsy. Continue diazepam for anxiety and melatonin for insomnia. 4. Others continue pantoprazole and calcium carbonate for chronic GERD, ibuprofen for pain. 5. Disposition. Patient remains inside the hospital and awaiting Urology procedure on , by that time she should have completed 10 days of intravenous antibiotics. Plan of care discussed with patient's boyfriend and patient at bedside. All of the questions have been answered. This patient does have complex insurance issues and her mother and father would not be able to take care of her at home so she is awaiting disability and long-term placement . cc: Chandu Elizalde MD
[2019-03-11] MEDS: LIPITOR PO SCH (20:00)
[2019-03-11] MEDS: MELATONIN PO SCH (20:00)
[2019-03-12] MEDS: PROTONIX PO SCH (06:27)
[2019-03-12] MEDS: VANCOMYCIN 1,500 MG in NS 250 ML IV SCH (08:21)
[2019-03-12] MEDS: FLOMAX PO SCH (08:24)
[2019-03-12] MEDS: VITAMIN B-1 PO SCH (08:24)
[2019-03-12] MEDS: ASPIRIN PO SCH (08:24)
[2019-03-12] MEDS: CALTRATE 600 PO SCH (08:24)
[2019-03-12] MEDS: LEVAQUIN PO SCH (08:24)
[2019-03-12] MEDS: FOLIC ACID PO SCH (08:25)
[2019-03-12] MEDS: VALIUM PO SCH ×2 (08:28→20:17)
[2019-03-12] MEDS: LOVENOX SUBQ SCH ×2 (08:29→11:28)
--- NOTE | 2019-03-12 15:31 | PROGRESS NOTE ---
DATE: 03/12/2019 SUBJECTIVE: This patient is lying in bed. She has no acute complaints. She denies any pain. OBJECTIVE: Vital Signs: Temperature 98 degrees, heart rate 96, respiratory rate 16, blood pressure 114/79, O2 saturations 98% on room air. General: This is a 44-year-old female. She is not in any acute distress. Cardiovascular: Rate and rhythm are regular. S1 and S2 are noted. Heart rate is in the 90s. Chest: Her lung sounds are clear bilaterally. GI: Her abdomen is soft and nontender. She has a Mancuso catheter in place, draining clear yellow. Neurologic: She is alert, oriented, and following commands. She has expressive aphasia due to history of CVA in October 2018. Right upper and lower extremity strength 0/5 and left upper and lower extremity strength 3/5. LABORATORY DATA: Last labs March 10, sodium 139, potassium 3.5, BUN 5, creatinine 0.4, calcium 8.6. No more recent labs. Last vancomycin level 9.9. ASSESSMENT AND PLAN: 1. Right-sided nephrolithiasis with urinary retention, status post right ureteric stent. A Mancuso catheter is in place, and on , March 15, patient is to undergo a right-sided ureteroscopy and basket stone extraction per Urology. We will continue IV vancomycin. Day 1 of Antibiotics was March 05. Her sepsis has resolved. 2. History of cerebrovascular accident in August 2018, status post right-sided hemiplegia and expressive aphasia. We will continue home aspirin and atorvastatin. 3. History of cerebral palsy. Continue diazepam for anxiety and melatonin for insomnia. 4. Chronic gastroesophageal reflux disease. Continue pantoprazole and calcium carbonate. 5. Disposition. We are waiting the urology procedure to take place on , and by that time she will have completed 10 days of IV vancomycin. The patient understands the plan of care. She has no further questions. Patient has complex insurance issues, and parents are not able to care for patient at home, so awaiting disability and long-term placement. Dictated by KORINA Dai for Chandu Elizalde MD cc: Chandu Elizalde MD I agree with above mentioned progress note. A separate addendum has been dictated. NAVI
--- NOTE | 2019-03-12 19:39 | PROGRESS NOTE ---
DATE: 03/12/2019 ADDENDUM: SUBJECTIVE: I agree with most components of progress as mentioned in the nurse practitioner's note. Ms. Pereira did not have any acute overnight events. She is a little teary at the moment since she was notified of a cyst over her vagina; however, she agreed with me examining her in the presence of a nurse. She denies any complaints. OBJECTIVE: Vital Signs are temperature 98 degrees, pulse 96, respiratory rate 16, blood pressure 114/79, saturating 98% on room air. Physical examination is essentially unchanged. On genitourinary examination, she does have what appears to be a Bartholin gland cyst, which is not painful and noninflamed and not tender and not infected. She does not have any more new labs. ASSESSMENT AND PLAN: 1. Right-sided nephrolithiasis. 2. Urinary retention status post right ureteric stent. I will continue IV antibiotics for her Staphylococcus epidermidis urinary infection. Plan is to get a definitive urology procedure for stone extraction on . Plan of care discussed with her. cc: Chandu Elizalde MD MTDD
[2019-03-12] MEDS: LIPITOR PO SCH (20:17)
[2019-03-12] MEDS: MELATONIN PO SCH (20:17)
[2019-03-13] MEDS: VANCOMYCIN 1,500 MG in NS 250 ML IV SCH ×2 (01:57→22:30)
[2019-03-13] MEDS: PROTONIX PO SCH (06:14)
[2019-03-13 08:03] LABS: CHOLESTEROL 172 mg/dL (0-200); HDL 40 mg/dL (45-65); LDL 67 mg/dL; TRIGLYCERIDES 327 mg/dL (35-135); VLDL 65 mg/dL
[2019-03-13 08:13] LABS: AGAP 6; BUN 16 mg/dL (8-22); CALCIUM 8.9 mg/dL (8.8-10.2); CHLORIDE 102 mmol/L (98-107); COSMO 277; CREATININE 0.5 mg/dL (0.5-0.9); ESTIMATED GFR > 60; GLUCOSE 108 mg/dL (70-104); POTASSIUM 3.8 mmol/L (3.5-5.1); SODIUM 138 mmol/L (136-145); TCO2 30 mmol/L (25-35)
[2019-03-13] MEDS: FOLIC ACID PO SCH (09:13)
[2019-03-13] MEDS: VITAMIN B-1 PO SCH (09:13)
[2019-03-13] MEDS: VALIUM PO SCH ×2 (09:13→22:53)
[2019-03-13] MEDS: FLOMAX PO SCH (09:13)
[2019-03-13] MEDS: CALTRATE 600 PO SCH (09:13)
[2019-03-13] MEDS: ASPIRIN PO SCH (09:13)
[2019-03-13] MEDS: LEVAQUIN PO SCH (09:13)
[2019-03-13] MEDS: LOVENOX SUBQ SCH (09:13)
--- NOTE | 2019-03-13 17:01 | PROGRESS NOTE ---
DATE: 03/13/2019 SUBJECTIVE: No acute events. Patient resting comfortably in bed. Denies any flank pain. Urethral catheter in place draining clear yellow urine. The patient remained afebrile and has had improvement in her tachycardia. The patient remains on IV antibiotics without any issue. OBJECTIVE: Vital signs: Temperature 97.8 degrees, heart rate 87, blood pressure 144/85, oxygen saturation 98% on room air. General: No acute distress. Resting comfortably in bed alert and oriented x3. Respiratory: Good respiratory effort without audible wheezing or rales. Abdomen: Soft, nontender, nondistended. No palpable masses. : No CVA tenderness, no suprapubic tenderness. Urethral catheter in place draining clear yellow urine. LABS: Sodium 138, potassium 3.8, chloride 102, bicarb 30, BUN 16, creatinine 0.5, glucose 108. ASSESSMENT AND PLAN: Ms. Pereira is a 44-year-old who underwent right ureteral stent placement for kidney stones last week. The patient has done well since then and is scheduled to undergo right ureteroscopy on 03/15/2019. The patient has remained in the hospital for almost 35 days now for variety of reasons. We will continue to monitor while inpatient. We will plan for treatment of her stones on and at some point we need to consider removal of her Mancuso catheter. The patient has a long history of urinary retention and likely has a neurogenic bladder looking at it during cystoscopy. Patient may need long-term urethral catheter versus suprapubic tube. Will evaluate after removal of renal stones. cc: Enrique Russell MD MTDD
--- NOTE | 2019-03-13 18:28 | PROGRESS NOTE ---
DATE: 03/13/2019 INTERVAL HISTORY: Overnight no acute events. SUBJECTIVE: She is feeling fine. Denies new complaints. VITALS: Temperature 97.8, pulse 87, respiratory 18, blood pressure 144/85, saturating 98% on room air. PHYSICAL EXAMINATION: General: Does not appear in acute distress. HEENT: Oral cavity is moist. No pallor, cyanosis, clubbing, icterus. Respiratory: No wheezes, rhonchi or crackles. Cardiovascular: S1, S2 normal. No murmur or gallop. Abdomen: Soft, nontender. She has a urine catheter in place. Neurologic: She is alert, following commands. She does have expressive aphasia and paraphasia due to prior history of stroke in 10/2018. On the previous neurological examination she has right upper extremity and lower extremity power of 0/5 with intact sensation on right upper extremity, but no sensation on right. Her left upper extremity and lower extremity sensations are intact with power of 5/5 on upper extremity and about 3 to 4/5 on left lower extremity. LABORATORY: BMP is in acceptable range today, though the BUN is slightly higher than before. Microbiology: No new data. ASSESSMENT AND PLAN: 1. Right-sided nephrolithiasis with urinary retention status post right ureteric stent. Mancuso catheter on March 05. The patient is to undergo right-sided ureteroscopy and basket stone extraction on March 15. They felt she may have a component of neurogenic bladder and may require long standing urine catheter. Continue intravenous vancomycin for Staph epidermidis urinary tract infection. Day 1 of antibiotics was March 05. Her sepsis because of UTI is now resolved. 2. History of cerebrovascular accident in 08/2018, status post right-sided hemiplegia and expressive aphasia. Continue home aspirin and continue atorvastatin. Her lipid panel does suggest her LDL is 67. History of cerebral palsy. Continue diazepam for anxiety and melatonin for insomnia 3. Others. Continue pantoprazole and calcium carbonate for chronic GERD, ibuprofen for pain. 4. Disposition: Patient remains inside the hospital for need for intravenous antibiotics which she will complete the course on after the urological procedure. If she is stable, the plan is to send her to [facility] until we await on disability. cc: Chandu Elizalde MD
[2019-03-13] MEDS: MELATONIN PO SCH (22:50)
[2019-03-13] MEDS: LIPITOR PO SCH (22:50)
[2019-03-13] MEDS: TYLENOL PO PRN (22:57)
[2019-03-14] MEDS: MOTRIN PO PRN (04:37)
[2019-03-14] MEDS: PROTONIX PO SCH (06:18)
[2019-03-14] MEDS: VALIUM PO SCH ×2 (09:21→20:15)
[2019-03-14] MEDS: LEVAQUIN PO SCH (09:21)
[2019-03-14] MEDS: VITAMIN B-1 PO SCH (09:21)
[2019-03-14] MEDS: CALTRATE 600 PO SCH (09:21)
[2019-03-14] MEDS: FLOMAX PO SCH (09:21)
[2019-03-14] MEDS: ASPIRIN PO SCH (09:21)
[2019-03-14] MEDS: LOVENOX SUBQ SCH (09:21)
[2019-03-14] MEDS: FOLIC ACID PO SCH (09:21)
[2019-03-14] MEDS: VANCOMYCIN 1,500 MG in NS 250 ML IV SCH (17:45)
--- NOTE | 2019-03-14 18:17 | PROGRESS NOTE ---
DATE: 03/14/2019 Overnight no acute events. SUBJECTIVE: Patient denies any new complaints. We discussed about blood test findings. We also discussed about plan for surgical procedure tomorrow and I answered all of her questions appropriately. The patient's boyfriend is at bedside. OBJECTIVE: Vital Signs: She is afebrile with temperature of 97.7 degrees, pulse 80, respiratory rate 16, blood pressure 138/88, saturating 97% on room air. General: Does not appear in any acute distress. HEENT: Oral cavity is moist. No pallor, cyanosis, clubbing, or icterus. She is wearing glasses. Respiratory: Air entry bilaterally equal. No wheeze, rhonchi, crackles. Cardiovascular: S1, S2 normal. No murmur, rub, or gallop. Abdomen: Soft, nontender, except a mild soreness. : She has urine catheter in place, draining yellow urine. Neurologic: She is alert. Following simple commands. She does have expressive aphasia and paraphasia due to prior history of stroke in late 2017. On previous neurological examination, she had right upper extremity and lower extremity power of 0/5 with intact sensation of right upper extremity but no sensation on right lower extremity. Her left upper extremity and lower extremity sensation is intact with power of 5/5 on upper extremity and about 3 to 4/5 on left lower extremity. LAB DATA: No BMP today. Her random vancomycin level has been within acceptable range. ASSESSMENT AND PLAN: 1. Right-sided nephrolithiasis with urine retention status post right ureteric stent with Mancuso catheter on March 05. The patient is to undergo right-sided ureteroscopy and basket stone extraction on March 15. She probably has a component of neurogenic bladder and may require long-term urine catheter. Continue intravenous vancomycin for Staphylococcus epidermidis urinary tract infection. Day 1 of antibiotics was March 05. My plan is to continue antibiotic until she goes for surgical procedure and then stop it. 2. History of cerebrovascular accident in August 2018, status post right-sided hemiplegia and expressive aphasia. I will continue home aspirin, atorvastatin. She also has history of cerebral palsy and I will continue home diazepam for anxiety and melatonin for insomnia. 3. Others. Continue pantoprazole and calcium carbonate for chronic GERD and ibuprofen for pain as needed. 4. Disposition. The patient remains inside the hospital awaiting urologic procedure. She does not have insurance and disability approval is pending. So after the procedure if current bed situation arises, the plan will be to transfer this patient to [facility] while awaiting disability approval. Plan of care discussed with the patient and her boyfriend at bedside. All of their questions have been answered. cc: Chandu Elizalde MD
[2019-03-14] MEDS: LIPITOR PO SCH (20:15)
[2019-03-14] MEDS: TYLENOL PO PRN (20:15)
[2019-03-14] MEDS: MELATONIN PO SCH (20:15)
[2019-03-15] MEDS: PROTONIX PO SCH (06:34)
[2019-03-15] MEDS ORDERED: DIPRIVAN 1% ONE (07:11)
[2019-03-15] MEDS ORDERED: XYLOCAINE-MPF 2% ONE (07:11)
--- NOTE | 2019-03-15 07:12 | PROGRESS NOTE ---
DATE: 03/15/2019 SUBJECTIVE: No acute events overnight. The patient resting comfortably in bed. Denies any bladder or kidney pain. Urethral catheter draining clear yellow urine. The patient remains afebrile. The patient remains on IV antibiotics without any issue. The patient is made NPO in preparation for surgery today. OBJECTIVE: Vital signs: Temperature 98 degrees, heart rate 77, blood pressure 102/66, oxygen saturation 95% on room air. General: No acute distress. Resting comfortably in bed. Alert and oriented x3. Respiratory: Good respiratory effort without audible wheezing or rales. Abdomen: Soft, nontender, and nondistended. : No suprapubic tenderness. No CVA tenderness. Urethral catheter in place draining clear yellow urine. Musculoskeletal: Right upper extremity has evidence of contracture. The patient has limited mobility of lower extremities. LABORATORY: Creatinine from 03/13/2019 was 0.5. ASSESSMENT/PLAN: Mrs. Pereira is a 44-year-old who underwent a right ureteral stent placement for kidney stones last week. The patient has done well and is scheduled for right ureteroscopy, lithotripsy, and stone basket extraction today. The patient is currently NPO in preparation for procedure. We will plan to leave her catheter in at this time after the procedure, and likely patient can be discharged back to [facility] afterwards. If the patient continues to have issues with urination, would have to consider long-term indwelling urethral catheter versus suprapubic tube. We will evaluate this further after removal of her renal stones. This was discussed with the patient earlier this morning. All questions were addressed. We will plan to proceed with surgical intervention later today. Please call with questions or concerns. cc: Enrique Russell MD [facility]
[2019-03-15] MEDS ORDERED: EPHEDRINE ONE ×2 (07:14→10:02)
[2019-03-15] MEDS ORDERED: DECADRON ONE (09:39)
[2019-03-15] MEDS ORDERED: ZOFRAN ONE (09:39)
--- NOTE | 2019-03-15 11:16 | Diag Imaging Result Doc PS360 ---
RETROGRADES 2 OR 3 FILMS - 03/15/2019 INDICATION: STONE BASK EXTRAC RT, STENT PLACE RT, LASER LITHOT RT TECHNIQUE: The exam was performed by the patient's urologist. Total fluoroscopy time was 37 seconds. 33 images were obtained. COMPARISON: 03/05/2019 FINDINGS: There was a pre-existing right nephroureteral stent. This was removed. There is a calcification in the region of the right UPJ that was present previously and is stable from prior. This was apparently removed. Contrast injection of the right renal collecting system was performed. This was slightly dilated but otherwise appear normal. A right nephroureteral stent was replaced in good position. IMPRESSION: No complication. Electronically signed by Enrico Montero 03/15/2019 11:14 AM
[2019-03-15 13:02] LABS: INR 0.92; PROTIME 13.1 Seconds (11.0-16.0)
[2019-03-15] MEDS: ASPIRIN PO SCH (14:55)
[2019-03-15] MEDS: VITAMIN B-1 PO SCH (14:58)
[2019-03-15] MEDS: CALTRATE 600 PO SCH (14:59)
[2019-03-15] MEDS: LEVAQUIN PO SCH (15:00)
[2019-03-15] MEDS: FOLIC ACID PO SCH (15:00)
[2019-03-15] MEDS: FLOMAX PO SCH (15:00)
[2019-03-15] MEDS: LOVENOX SUBQ SCH (15:01)
[2019-03-15] MEDS: VANCOMYCIN 1,500 MG in NS 250 ML IV SCH (15:01)
[2019-03-15] MEDS: VALIUM PO SCH ×2 (15:01→22:28)
[2019-03-15] MEDS: D5 1/2 NS 1,000 ML IV SCH ×2 (15:26→18:33)
--- NOTE | 2019-03-15 17:57 | PROGRESS NOTE ---
DATE: 03/15/2019 SUBJECTIVE: Patient is resting comfortably in bed. She denies any new complaints. She had a new urological procedure today, no complications. This patient's boyfriend is at the bedside. All of their questions were answered. OBJECTIVE: Vital Signs: Temperature 98 degrees, pulse 90, respiratory rate 20, blood pressure 135/82, oxygen saturation 97% on room air. HEENT: Head normocephalic. No trauma. PERRLA. Neck: Supple. No JVD. No masses. Central trachea. Chest: Clear to auscultation. No wheezing. No rales. Abdomen: Soft, nontender. Just mild discomfort to palpation which is generalized. Genitourinary: She has a urine catheter in place, draining yellow urine. Neurological: This patient is alert. She is following simple commands. She does have a history of aphasia and I believe she has a previous history of stroke in 2018. Right upper extremity and lower extremity power 0/5. It looks like the sensation is intact at the level of the right upper extremity, but she does not feel anything at the level of the right lower extremity. Strength on the left upper and lower extremity around 3/5 on the lower side and 5/5 left upper extremity. As per the patient, her sensation is fine. LABORATORY: PT 13.1, INR 0.92. ASSESSMENT AND PLAN: 1. Right-sided nephrolithiasis with urine retention, status post right ureteric stent with Mancuso catheter on March 05, 2019. Today she is status post right-sided ureteroscopy and basket stone extraction. She probably has also a component of neurogenic bladder and may require a long-term urine catheter. We will continue with antibiotics and probably I will stop it in 1 or 2 days. 2. History of cerebrovascular accident in August of 2018, status post right-sided hemiplegia and expressive aphasia. Continue with home aspirin, atorvastatin. Also she has a history of cerebral palsy and I will continue with home diazepam for anxiety and melatonin for insomnia. 3. Gastrointestinal prophylaxis with pantoprazole. Also history of gastroesophageal reflux disease. Overall this patient seems to be more stable. We will keep this patient today in the hospital but probably she will be transferred to [facility] either tomorrow or during the weekend. We will monitor for now. cc: Trino Cervantes MD
--- NOTE | 2019-03-15 20:49 | OPERATIVE NOTE ---
PROCEDURE DATE: 03/15/2019 PREOPERATIVE DIAGNOSES: 1. Right renal stones. 2. Urinary tract infection. 3. Right hydronephrosis. POSTOPERATIVE DIAGNOSES: 1. Right renal stones. 2. Urinary tract infection. 3. Right hydronephrosis. PROCEDURES PERFORMED: 1. Cystoscopy. 2. Right ureteral stent exchange, 6x24cm. 3. Right ureteroscopy with laser lithotripsy. 4. Stone basket extraction. 5. Right retrograde pyelogram. SURGEON: Dr. Enrique Russell. RN CLINICAL DOCUMENTATION: None. COMPLICATIONS: None. BLOOD LOSS: 5 mL. DRAINS: A 6 x 24 cm ureteral stent, 16-Azerbaijani Mancuso catheter. SPECIMENS REMOVED: Right renal stone. OPERATIVE FINDINGS: The patient had evidence of enlargement of the labia minora. On cystourethroscopy, the urethra was normal with no stricture disease or papillary lesions. The entire bladder was inspected. There was a moderate amount of sediment as well as trabeculations and cellules throughout the bladder. No obvious papillary lesions. Extruding from the right ureteral orifice was a stent which was grasped and pulled out to the meatus. A wire was passed up through, the stent was then removed, and a second wire was then passed cystoscopically through the ureter and up into the kidney. A ureteral access sheath was passed and the ureteroscope was then passed up to the kidney, and 2 stones were visualized, one in the lower moiety renal pelvis as well as another stone in the lower pole. The stones were systematically broken up and each of these pieces was removed. The entirety of the upper pole and lower pole moieties was evaluated. 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 Both of these locations were again visualized with retrograde pyelogram and evaluated for stone extraction. I was able to place a stent into the lower pole of the moiety of the kidney. The patient's bladder was drained of all irrigation and a Mancuso catheter was inserted at end of the procedure. INDICATION FOR PROCEDURE: Ms. Pereira is a 44-year-old who presented in consultation regarding fevers and concern for sepsis last week. The patient was taken to the operating room and had a stent placed at that time due to CT scan evidence of hydronephrosis with 2 stones, one in the renal pelvis as well as a lower pole stone. The patient had evidence of a bifid system with early branching of the renal pelvis, spilling into the upper pole and an inner pole and lower pole moiety. The patient's stones were all present in the lower pole and a stent was then placed into this. The patient presents today for definitive stone management. Risks, benefits, and alternatives to surgical procedure were discussed with patient, and patient elected to proceed. DESCRIPTION OF PROCEDURE: After informed consent was obtained, the patient was brought to the operating room and placed on the operating table in supine position. Underwent general anesthesia. The patient received antibiotics on the floor and had LMA placement on the operating table. Subsequently, patient was placed into a dorsal lithotomy position and was prepped and draped in the usual sterile fashion. A preop time-out was performed with all parties in agreement, including anesthesia, surgical, and nursing staff. At which time a 21-Azerbaijani cystourethroscope was obtained. The patient had evidence of prominent external genitalia and labia minora. This was retracted which showed a normal urethra and vaginal tissues. The cystourethroscope easily passed through the urethra, showing normal caliber and no evidence of stricture disease. On entering into the bladder, the entirety of the bladder was inspected. No evidence of any obvious papillary lesions. There were several cellules and diverticula with trabeculations present throughout. Both ureteral orifices were visualized. The right one had a stent that extruded. A flexible grasper was then passed through the scope. The end of this was grabbed and pulled out to the meatus. A ZIPwire was then passed through the stent and passed up into the kidney. The stent was removed. The cystourethroscope was then reinserted and a PTFE wire was then passed through the scope and passed into the kidney itself. The cystourethroscope was removed. The bladder was drained, and a 12/14F 35 cm ureteral access sheath was easily passed into the ureter itself, stopping just below the bifid portion of the ureter. Ureteral access sheath was left in place and a flexible ureteroscope was then passed through the sheath and up into the lower pole moiety. On evaluation, the patient had a large stone present in the renal pelvis as well as a smaller lower pole renal stone. The entire collecting system was evaluated with no other large stone debris. The upper pole was then evaluated which was a straight shot with minimal complexity, with no obvious stone debris in the upper pole. The scope was then passed back down into the inner pole and lower pole region, and a 200 micron fiber was then used to break up the stone into multiple pieces. These were extracted with a Akbar basket and collected for later stone analysis. Multiple passes of the ureteroscope were passed up and down the ureter, which was well accommodating, and stone fragments were retrieved. Following removal of all stone fragments, a retrograde pyelogram was performed through the scope, which outlined the inner pole and lower pole regions, and each calyx was evaluated with no large stone debris present. The ZIPwire was left in place and the flexible ureteroscope was then slowly withdrawn, which showed a normal appearance of the ureter. The ureteral access sheath was completely removed with no evidence of any tears or trauma to the ureteral mucosa. Ureteral access sheath was completely removed and a 6 x 24 cm stent was then backloaded over the wire and passed up into the kidney under fluoroscopic guidance, with good curl seen within the kidney and endoscopically visualized in the bladder. Reviewing the image, I was concerned that the stent was not placed into the lower pole and inner pole moiety, but rather in the upper pole. The decision was made to extract the stent and replace it. I passed a flexible ureteroscope up into the collecting system and was able to pass a wire directly back into the lower pole moiety. This coiled appropriately. The ureteroscope was removed and again a 6 x 24 cm stent was then backloaded and passed easily into the appropriate position. Good drainage was seen through and around the stent. The patient's strings were tied with a knot and then cut short. The patient's bladder was left full and a Mancuso catheter was then reinserted. Good drainage was seen. It was light pink irrigant. The patient's Mancuso catheter was inflated with 10 mL of sterile water. The patient was then awoken and was taken to Recovery in stable condition. DISPOSITION: Patient will be transferred back to the floor for continued monitoring. We will keep indwelling catheter in at this time. If the patient does well, we could try to attempt a voiding trial. If the patient is unable to void, she will likely need chronic long-term indwelling catheter. cc: Enrique Russell MD [facility]
[2019-03-15] MEDS: LIPITOR PO SCH (22:28)
[2019-03-15] MEDS: MELATONIN PO SCH (22:29)
[2019-03-16 07:25] LABS: BASO# 0.03 X1000 (0.0-0.2); BASO% 0.3 % (0.0-0.8); EOS# 0.06 X1000 (0.0-0.7); EOS% 0.6 % (0.0-10.0); HEMOGLOBIN 9.2 g/dL (12.0-16.0); IMM GRAN# 0.03 X1000 (0.0-0.04); IMM GRAN% 0.3 % (0.0-0.5); LYMPH# 1.97 X1000 (1.2-3.4); LYMPH% 20.6 % (20.5-51.1); MCH 30.6 PG (27-31); MCHC 31.7 g/dL (33-37); MCV 96.3 FL (81-99); MONO# 0.78 X1000 (0.11-0.59); MONO% 8.2 % (1.7-9.3); MPV 11.2 FL (7.4-10.4); NEUT# 6.68 X1000 (1.4-6.5); PLT 327 X1000 (130-400); RBC 3.01 XMIL (4.2-5.4); WBC 9.55 X1000 (4.8-10.8)
[2019-03-16 08:32] LABS: AGAP 14; BUN 9 mg/dL (8-22); CALCIUM 8.8 mg/dL (8.8-10.2); CHLORIDE 105 mmol/L (98-107); COSMO 277; CREATININE 0.4 mg/dL (0.5-0.9); ESTIMATED GFR > 60; GLUCOSE 120 mg/dL (70-104); POTASSIUM 3.6 mmol/L (3.5-5.1); SODIUM 139 mmol/L (136-145); TCO2 20 mmol/L (25-35)
[2019-03-16] MEDS: FOLIC ACID PO SCH (09:15)
[2019-03-16] MEDS: VITAMIN B-1 PO SCH (09:15)
[2019-03-16] MEDS: FLOMAX PO SCH (09:15)
[2019-03-16] MEDS: ASPIRIN PO SCH (09:15)
[2019-03-16] MEDS: VANCOMYCIN 1,500 MG in NS 250 ML IV SCH (09:15)
[2019-03-16] MEDS: LEVAQUIN PO SCH (09:15)
[2019-03-16] MEDS: CALTRATE 600 PO SCH (09:16)
[2019-03-16] MEDS: LOVENOX SUBQ SCH (09:16)
[2019-03-16] MEDS: PROTONIX PO SCH (09:23)
[2019-03-16] MEDS: D5 1/2 NS 1,000 ML IV SCH ×3 (09:23→22:08)
[2019-03-16] MEDS: VALIUM PO SCH ×2 (09:26→20:07)
--- NOTE | 2019-03-16 10:53 | PROGRESS NOTE ---
DATE: 03/16/2019 SUBJECTIVE: Postoperative day 1 from cystoscopy, right ureteroscopy with laser lithotripsy, stone basket extraction and right ureteral stent exchange. The patient tolerated the procedure well. She did have a small amount of reddish urine output yesterday which seems to have cleared today. Her urine is draining well. She denies any fevers or chills. She had a couple episodes of tachycardia postoperatively, but this seems to have improved this morning. Remains afebrile. OBJECTIVE: Vital Signs: Temperature 98.1 degrees, heart rate 82, blood pressure 125/87, oxygenation 94% on room air. General: No acute distress. Resting comfortably in bed, alert and oriented. Respiratory: Good respiratory effort without audible wheezing or rales. Abdomen: Soft, nontender, nondistended. No palpable masses. : No suprapubic tenderness. No CVA tenderness. Urethral catheter in place draining clear yellow urine in tubing. A small amount of red urine in the bag. No evidence of clots. LABORATORY DATA: White blood cell count 9.5, hemoglobin 9.2, hematocrit 29, platelets 327,000. Sodium 139, potassium 3.6, chloride 105, bicarbonate 20, BUN 9, creatinine 0.4, glucose 120. ASSESSMENT AND PLAN: Ms Pereira is a 44-year-old who is postop day 1 from cystoscopy, right ureteroscopy, laser lithotripsy and stone basket extraction. The patient seems to be doing well. She has indwelling catheter in which is draining clear yellow urine. Will continue indwelling catheter this time. Likely would plan to remove her catheter and ureteral stent in the coming days and hopefully she should be able to urinate spontaneously. If the patient is unable to void spontaneously, likely would need chronic indwelling catheter versus consideration of suprapubic tube. The patient has had prior stroke as well as cerebral palsy, which is likely complicating her urinary retention. The patient has been afebrile with stable vital signs and is likely treated adequately for her urinary tract infection from urologic standpoint. We plan to remove her ureteral stent on Tuesday and likely remove her catheter at the same time. This can be either done at [facility] or [place]. cc: Enrique Russell MD [facility]
--- NOTE | 2019-03-16 14:57 | PROGRESS NOTE ---
DATE: 03/16/2019 SUBJECTIVE: This patient is resting comfortably in bed. No new complaints. She had a new urological procedure done yesterday. She is status post cystoscopy exam with right ureteral stent exchange, right ureteroscopy with laser lithotripsy, a stone basket extraction and right retrograde pyelogram. It looks like this patient is doing well. She has an indwelling catheter which is draining clear yellow urine. The plan is to remove her catheter and the ureteral stent probably next week. If the patient is not able to void spontaneously, probably we need to continue with chronic indwelling catheter versus consideration of suprapubic tube. OBJECTIVE: Vital signs: Temperature is 97.7, pulse 95, respiratory rate 16, blood pressure 133/92, oxygen saturation is 97% on room air. HEENT: Head is atraumatic and normocephalic. PERRLA. Neck: Supple. No JVD. No masses. Central trachea. Chest: Clear to auscultation. No wheezing, no rales. Abdomen: Soft, nontender. Just mildly uncomfortable to the patient which is generalized. Genitourinary: She has a catheter in place draining yellow urine. Neurologic: Alert. She is following simple commands. She does have a history of aphasia, and I believe she has a previous history of a stroke in 2018. Right upper extremity and lower extremity power is 0/5. It looks like sensation is intact at the level of the right upper extremity, but not at the level of the right lower extremity. Strength on the left upper and lower extremity around 3/5 in the lower part and 5/5 in the upper part. As per the patient, the sensation is okay. DIAGNOSTIC DATA: WBC is 9.5, hemoglobin 9.2, hematocrit 29, platelets 227. Sodium is 136, potassium 3.6, chloride 105, bicarbonate 20, BUN is 9, creatinine 0.4, glucose 120, calcium 8.8. ASSESSMENT AND PLAN: 1. Right-sided nephrolithiasis with urine retention, status post right ureteral stent with Mancuso catheter placed on 03/05/2019. And now she is also status post cystoscopic exam with right ureteral stent exchange, right ureteroscopy with laser lithotripsy and stone basket extraction. Right retrograde pyelogram. The plan is to remove the stent and the catheter likely next week. If she is not able to void, probably she will need to keep the catheter terminal supervisor and/or get a suprapubic catheter placed. Urology department will reevaluate the patient. 2. History of cerebrovascular accident in 08/2018 with residual right-sided hemiplegia and expressive aphasia. Continue with the same management. Also she has a history of cerebral palsy, and I will continue with home diazepam for anxiety and melatonin for insomnia. 3. Gastrointestinal prophylaxis/gastroesophageal reflux disease. Continue with pantoprazole. The patient will be transferred to [facility]. Urology Department will be following this patient over there. The patient seems to be stable today. She tolerated well the procedure. cc: Trino Cervantes MD
[2019-03-16] MEDS: NORCO-7.5 PO PRN (20:07)
[2019-03-16] MEDS: LIPITOR PO SCH (20:08)
[2019-03-16] MEDS: MELATONIN PO SCH (20:08)
[2019-03-17] MEDS: VANCOMYCIN 1,500 MG in NS 250 ML IV SCH ×2 (03:00→20:51)
[2019-03-17] MEDS: PROTONIX PO SCH (06:35)
[2019-03-17 07:37] LABS: BASO# 0.05 X1000 (0.0-0.2); BASO% 0.6 % (0.0-0.8); EOS# 0.27 X1000 (0.0-0.7); EOS% 3.4 % (0.0-10.0); HEMATOCRIT 26.7 % (37.0-47.0); HEMOGLOBIN 8.3 g/dL (12.0-16.0); IMM GRAN# 0.04 X1000 (0.0-0.04); IMM GRAN% 0.5 % (0.0-0.5); LYMPH# 2.89 X1000 (1.2-3.4); LYMPH% 36.4 % (20.5-51.1); MCH 29.6 PG (27-31); MCHC 31.1 g/dL (33-37); MCV 95.4 FL (81-99); MONO# 0.67 X1000 (0.11-0.59); MONO% 8.4 % (1.7-9.3); MPV 11.3 FL (7.4-10.4); NEUT# 4.02 X1000 (1.4-6.5); NEUT% 50.7 % (42.2-75.2); PLT 380 X1000 (130-400); RDW 14.2 % (11.5-14.5); WBC 7.94 X1000 (4.8-10.8)
[2019-03-17 08:38] LABS: AGAP 11; BUN 13 mg/dL (8-22); CALCIUM 8.4 mg/dL (8.8-10.2); CHLORIDE 106 mmol/L (98-107); COSMO 279; CREATININE 0.3 mg/dL (0.5-0.9); ESTIMATED GFR > 60; GLUCOSE 98 mg/dL (70-104); POTASSIUM 3.9 mmol/L (3.5-5.1); SODIUM 140 mmol/L (136-145); TCO2 23 mmol/L (25-35)
--- NOTE | 2019-03-17 10:01 | PROGRESS NOTE ---
DATE: 03/16/2019 SUBJECTIVE: Patient resting quietly in bed, playing on her phone. Denies any problems at this time. OBJECTIVE: Vital signs: Temperature 97.5 degrees, pulse 76, respirations 16, blood pressure 104/74, saturating 97% on room air. General: This is a 44-year-old female who is lying in the bed. Answers questions appropriately. HEENT: Normocephalic, atraumatic. ENT, normal inspection. Oropharynx and nares are clear. Eyes: Pupils are equal, round, reactive to light and accommodation. Extraocular movements are intact. Neck: Normal inspection, normal range of motion. Lungs: Clear to auscultation bilaterally with equal lung expansion and chest wall movement. Heart: Regular rate and rhythm. No murmurs, rubs, or gallops. Abdomen: Soft, nontender, nondistended. Bowel sounds are present x4 quadrants. Genitourinary: She has an indwelling Mancuso catheter in place draining clear yellow urine. Neurological: She is alert. Her right upper extremity and lower extremity power is 0/5. Strength of left upper and lower extremity is 3/5 in lower part and 5/5 in the upper arm. LABORATORY DATA: White blood cell count of 7.94, hemoglobin 8.3, hematocrit 26.7, platelets 380,000. Sodium 140, potassium 3.9, chloride 106, CO2 23, BUN of 13, creatinine 0.3, glucose 98. ASSESSMENT: 1. Right-sided nephrolithiasis with urine retention, status post right ureteral stent with Mancuso catheter placement and status post cystoscopic exam with right ureteral stent exchange, right ureteroscopy with laser lithotripsy and stone basket extraction and a right retrograde pyelogram. She is currently being followed by Urology. Continues to have her indwelling catheter. They hope to remove the stent and the catheter next week, but if she is not able to void, they will keep the catheter long-term, possibly place a suprapubic catheter at that time, but that would be a Urology department decision. We will continue to follow. 2. History of cerebrovascular accident in 2018 with residual right-sided hemiplegia and expressive aphasia. We will continue her same home medications and follow. 3. Gastroesophageal reflux disease. We will continue with her pantoprazole. Dictated by KORINA Sharpe for Heath Valadez MD Addendum: Patient seen and examined by myself. Agree with KORINA note. It reflects my assessment and plan. cc: KORINA Sharpe MD [facility]
[2019-03-17] MEDS: FOLIC ACID PO SCH (10:02)
[2019-03-17] MEDS: VALIUM PO SCH ×2 (10:02→20:52)
[2019-03-17] MEDS: CALTRATE 600 PO SCH (10:02)
[2019-03-17] MEDS: ASPIRIN PO SCH (10:03)
[2019-03-17] MEDS: LEVAQUIN PO SCH (10:03)
[2019-03-17] MEDS: VITAMIN B-1 PO SCH (10:03)
[2019-03-17] MEDS: FLOMAX PO SCH (10:03)
[2019-03-17] MEDS: LOVENOX SUBQ SCH (10:04)
[2019-03-17] MEDS: D5 1/2 NS 1,000 ML IV SCH (10:19)
[2019-03-17] MEDS: NORCO-7.5 PO PRN (20:52)
[2019-03-17] MEDS: MELATONIN PO SCH (20:52)
[2019-03-17] MEDS: LIPITOR PO SCH (20:52)
[2019-03-18] MEDS: D5 1/2 NS 1,000 ML IV SCH ×2 (00:05→13:04)
[2019-03-18] MEDS: PROTONIX PO SCH (06:34)
[2019-03-18 07:31] LABS: AGAP 10; BUN 8 mg/dL (8-22); CALCIUM 8.5 mg/dL (8.8-10.2); CHLORIDE 108 mmol/L (98-107); COSMO 280; CREATININE 0.3 mg/dL (0.5-0.9); ESTIMATED GFR > 60; GLUCOSE 98 mg/dL (70-104); SODIUM 141 mmol/L (136-145); TCO2 23 mmol/L (25-35)
[2019-03-18 08:02] LABS: BASO# 0.08 X1000 (0.0-0.2); BASO% 1.1 % (0.0-0.8); EOS# 0.39 X1000 (0.0-0.7); EOS% 5.2 % (0.0-10.0); HEMATOCRIT 27.7 % (37.0-47.0); HEMOGLOBIN 8.8 g/dL (12.0-16.0); IMM GRAN# 0.03 X1000 (0.0-0.04); IMM GRAN% 0.4 % (0.0-0.5); LYMPH# 2.65 X1000 (1.2-3.4); LYMPH% 35.2 % (20.5-51.1); MCHC 31.8 g/dL (33-37); MCV 94.5 FL (81-99); MONO# 0.75 X1000 (0.11-0.59); MPV 11.1 FL (7.4-10.4); NEUT# 3.63 X1000 (1.4-6.5); NEUT% 48.1 % (42.2-75.2); PLT 409 X1000 (130-400); RBC 2.93 XMIL (4.2-5.4); RDW 13.7 % (11.5-14.5); WBC 7.53 X1000 (4.8-10.8)
--- NOTE | 2019-03-18 10:08 | PROGRESS NOTE ---
DATE: 03/18/2019 SUBJECTIVE: Patient resting quietly in bed with eyes closed. No complaints voiced at this time. OBJECTIVE: Vital Signs: Temperature 97.5 degrees, pulse 79, respirations 16, blood pressure 110/69, saturating 97% on room air. General: This is a 44-year-old, female who is resting quietly in bed. HEENT: Appears normocephalic and atraumatic. Normal ENT inspection. Oropharynx and nares are clear. Eyes: Pupils are equal, round, and reactive to light and accommodation. Extraocular movements are intact. Neck: Normal inspection. Normal range of motion. Lungs: Clear to auscultation bilaterally with equal lung expansion and chest wall movement. Heart: Regular rate and rhythm. No murmurs, rubs, or gallops. Abdomen: Soft, nontender, nondistended. Bowel sounds are present x4 quadrants. Genitourinary: She continues to have an indwelling Mancuso catheter in place draining clear yellow urine. Neurological: She is noted in her right upper extremity and lower extremity with power of 0/5. Strength of her left upper extremity is 3/5 and lower 5/5. Laboratory Data: Showed a white blood cell count of 7.53, hemoglobin 8.8, hematocrit 27.7, platelets 409,000. Sodium 141, potassium 4, chloride 108, CO2 23, BUN of 8, creatinine 0.3. ASSESSMENT: 1. A right-sided nephrolithiasis with urine retention, status post right ureteral stent with Mancuso catheter placement, and status post cystoscopic examination and a right ureteral stent exchange with a right ureteroscopy with laser lithotripsy and stone basket extraction, and a right retrograde pyelogram. She continues to be followed by urology. Continues to have her indwelling catheter. They are hoping to remove the stent and catheter next week, hoping that she will void spontaneously but if not, she may have to keep the catheter long-term or possibly even place a suprapubic catheter, but urology will make that decision. 2. History of cerebrovascular accident in 2018 with residual right-sided hemiplegia and expressive aphasia. We will continue with her current medication regimen. 3. Gastroesophageal reflux disease. Continue with current medication regimen. Dictated by KORINA Sharpe for Heath Valadez MD Addendum: Patient is seen and examined by myself. Agree with KORINA note. It reflects my assessment and plan. cc: KORINA Sharpe MD [facility]
[2019-03-18] MEDS: CALTRATE 600 PO SCH (10:50)
[2019-03-18] MEDS: VALIUM PO SCH ×2 (10:50→20:23)
[2019-03-18] MEDS: LEVAQUIN PO SCH (10:50)
[2019-03-18] MEDS: ASPIRIN PO SCH (10:50)
[2019-03-18] MEDS: VITAMIN B-1 PO SCH (10:50)
[2019-03-18] MEDS: LOVENOX SUBQ SCH (10:51)
[2019-03-18] MEDS: FOLIC ACID PO SCH (10:51)
[2019-03-18] MEDS: FLOMAX PO SCH (10:51)
[2019-03-18] MEDS: VANCOMYCIN 1,500 MG in NS 250 ML IV SCH (14:42)
[2019-03-18] MEDS: MELATONIN PO SCH (20:22)
[2019-03-18] MEDS: NORCO-7.5 PO PRN (20:22)
[2019-03-18] MEDS: LIPITOR PO SCH (20:23)
[2019-03-19] MEDS: D5 1/2 NS 1,000 ML IV SCH ×2 (03:00→18:52)
[2019-03-19 07:07] LABS: BASO# 0.06 X1000 (0.0-0.2); BASO% 0.7 % (0.0-0.8); EOS# 0.33 X1000 (0.0-0.7); HEMOGLOBIN 8.3 g/dL (12.0-16.0); IMM GRAN# 0.01 X1000 (0.0-0.04); IMM GRAN% 0.1 % (0.0-0.5); LYMPH# 2.31 X1000 (1.2-3.4); LYMPH% 28.1 % (20.5-51.1); MCH 30.1 PG (27-31); MCHC 31.9 g/dL (33-37); MCV 94.2 FL (81-99); MONO# 0.67 X1000 (0.11-0.59); MONO% 8.1 % (1.7-9.3); MPV 11.9 FL (7.4-10.4); NEUT# 4.85 X1000 (1.4-6.5); PLT 339 X1000 (130-400); RBC 2.76 XMIL (4.2-5.4); RDW 13.6 % (11.5-14.5); WBC 8.23 X1000 (4.8-10.8)
[2019-03-19 07:17] LABS: AGAP 11; BUN 14 mg/dL (8-22); CHLORIDE 106 mmol/L (98-107); COSMO 282; CREATININE 0.5 mg/dL (0.5-0.9); ESTIMATED GFR > 60; GLUCOSE 104 mg/dL (70-104); POTASSIUM 3.6 mmol/L (3.5-5.1); SODIUM 141 mmol/L (136-145); TCO2 24 mmol/L (25-35)
[2019-03-19] MEDS: VANCOMYCIN 1,500 MG in NS 250 ML IV SCH (09:52)
[2019-03-19] MEDS: VITAMIN B-1 PO SCH (09:53)
[2019-03-19] MEDS: VALIUM PO SCH ×2 (09:53→20:33)
[2019-03-19] MEDS: FOLIC ACID PO SCH (09:53)
[2019-03-19] MEDS: ASPIRIN PO SCH (09:53)
[2019-03-19] MEDS: LEVAQUIN PO SCH (09:53)
[2019-03-19] MEDS: LOVENOX SUBQ SCH (09:53)
[2019-03-19] MEDS: CALTRATE 600 PO SCH (09:53)
[2019-03-19] MEDS: PROTONIX PO SCH (09:53)
[2019-03-19] MEDS: FLOMAX PO SCH (09:53)
[2019-03-19] MEDS: LIPITOR PO SCH (20:33)
[2019-03-19] MEDS: MELATONIN PO SCH (20:33)
--- NOTE | 2019-03-19 22:39 | PROGRESS NOTE ---
DATE: 03/19/2019 SUBJECTIVE: Patient has no complaints. PHYSICAL EXAMINATION: Vital Signs: Reviewed. Temperature 97.8, pulse 89, respiratory rate 18, BP 145/84. General: Patient is awake, alert. No distress. HEENT: Normocephalic. Neck: Supple. CARDIOVASCULAR: Regular rate. Chest: Clear. Abdomen: Soft. Extremities: Moves all extremities. ASSESSMENT AND PLAN: 1. Right-sided nephrolithiasis with urinary retention and hydronephrosis seems to be resolved. She currently has a right ureteral stent which is being followed by Urology. I believe the plan is to remove it next week. 2. History of cerebrovascular accident with expressive aphasia and right-sided hemiplegia. 3. Poor social situation. Patient will remain in the hospital until which time she can transition to long-term. cc: Brian Hernandez MD
[2019-03-20] MEDS: NORCO-7.5 PO PRN (01:00)
[2019-03-20] MEDS: VANCOMYCIN 1,500 MG in NS 250 ML IV SCH ×2 (04:03→21:58)
[2019-03-20] MEDS: VALIUM PO SCH ×2 (08:45→22:07)
[2019-03-20] MEDS: FOLIC ACID PO SCH (08:45)
[2019-03-20] MEDS: VITAMIN B-1 PO SCH (08:46)
[2019-03-20] MEDS: PROTONIX PO SCH (08:46)
[2019-03-20] MEDS: FLOMAX PO SCH (08:46)
[2019-03-20] MEDS: LEVAQUIN PO SCH (08:46)
[2019-03-20] MEDS: ASPIRIN PO SCH (08:46)
[2019-03-20] MEDS: CALTRATE 600 PO SCH (08:46)
[2019-03-20] MEDS: D5 1/2 NS 1,000 ML IV SCH ×2 (09:01→21:58)
[2019-03-20] MEDS: LOVENOX SUBQ SCH (09:01)
--- NOTE | 2019-03-20 19:10 | PROGRESS NOTE ---
DATE: 03/20/2019 SUBJECTIVE: Patient has no new complaints. PHYSICAL: Temperature 97.2 degrees, pulse 97, respiratory 18, BP 116/80.General: Patient is awake, alert. She is in no current distress. HEENT: Normocephalic. Neck: Supple. She is in no respiratory distress. CV: Regular rate. Chest: Clear. Abdomen: Soft. Extremities: Moves left upper and lower extremity. She has right-sided hemiplegia. ASSESSMENT: 1. History of cerebrovascular accident with right-sided hemiplegia and expressive aphasia. 2. Right-sided nephrolithiasis status post urinary retention and stent placement with stone basket extraction, the current plan is for her to have stent removed next week. PLAN: Will continue to follow, continue current care. cc: Brian Hernandez MD
[2019-03-20] MEDS: LIPITOR PO SCH (21:59)
[2019-03-20] MEDS: MELATONIN PO SCH (21:59)
[2019-03-21] MEDS: FLOMAX PO SCH (08:23)
[2019-03-21] MEDS: VALIUM PO SCH ×2 (08:23→21:19)
[2019-03-21] MEDS: ASPIRIN PO SCH (08:23)
[2019-03-21] MEDS: FOLIC ACID PO SCH (08:23)
[2019-03-21] MEDS: CALTRATE 600 PO SCH (08:23)
[2019-03-21] MEDS: VITAMIN B-1 PO SCH (08:23)
[2019-03-21] MEDS: PROTONIX PO SCH (08:23)
[2019-03-21] MEDS: LOVENOX SUBQ SCH (09:36)
[2019-03-21] MEDS: LIPITOR PO SCH (21:19)
[2019-03-21] MEDS: MELATONIN PO SCH (21:19)
--- NOTE | 2019-03-21 23:29 | PROGRESS NOTE ---
DATE: 03/21/2019 SUBJECTIVE: Patient has no complaints. PHYSICAL EXAMINATION: Vital Signs: Stable. Temperature 98 degrees, pulse 91, respiratory 18, BP 141/85. General: Patient is awake, alert. He is in no respiratory distress. HEENT: Normocephalic. Neck: Supple. Cardiovascular: Regular rate. Chest: Clear and nonlabored. Abdomen: Soft, nondistended. Extremities: Moves all extremities. ASSESSMENT: 1. Right-sided nephrolithiasis status post stenting. Recent urine culture is negative. 2. Recurrent urinary tract infection. 3. History of cerebrovascular accident in 2018 with right-sided hemiplegia. 4. Expressive aphasia. PLAN: At this point, patient has been on antibiotics for greater than 7 days. Urine culture is negative. We will stop Levaquin and vancomycin. We will continue patient in the hospital. We will talk with Urology about when to remove the stent. Continue to await placement. cc: Brian Hernandez MD
[2019-03-22] MEDS: NORCO-7.5 PO PRN (01:38)
[2019-03-22] MEDS: VALIUM PO SCH ×2 (10:46→21:42)
[2019-03-22] MEDS: VITAMIN B-1 PO SCH (10:46)
[2019-03-22] MEDS: CALTRATE 600 PO SCH (10:46)
[2019-03-22] MEDS: LOVENOX SUBQ SCH (10:46)
[2019-03-22] MEDS: FLOMAX PO SCH (10:46)
[2019-03-22] MEDS: PROTONIX PO SCH (10:46)
[2019-03-22] MEDS: FOLIC ACID PO SCH (10:46)
[2019-03-22] MEDS: ASPIRIN PO SCH (10:47)
[2019-03-22] MEDS: MELATONIN PO SCH (21:42)
[2019-03-22] MEDS: LIPITOR PO SCH (21:42)
--- NOTE | 2019-03-23 00:48 | PROGRESS NOTE ---
DATE: 03/22/2019 SUBJECTIVE: Patient currently has no complaints. Denies any fevers or chills. Denies any pain. PHYSICAL EXAMINATION: Vital Signs: Temperature 97.5 degrees, pulse 78, respiratory 18, BP 123/69. General: Patient is awake, alert, very pleasant. She does have expressive aphasia but is able to communicate. HEENT: Normocephalic. Neck: Supple. Cardiovascular: Regular rate . Chest: Clear, nonlabored. Abdomen: Soft, nondistended, nontender. Extremities: Moves all extremities. ASSESSMENT: 1. Right-sided nephrolithiasis with urinary retention, resolved. She does have a right ureteral stent. We will discuss with Urology the removal of said stent. 2. History of cerebrovascular accident in 2018 with right-sided hemiplegia and expressive aphasia, stable. PLAN: At this point, we will stop the patient's antibiotics as she has been on antibiotics for greater than 7 days. She is afebrile. We will continue to follow. We will consult with Urology regarding her stent. Further orders as needed. cc: Brian Hernandez MD
[2019-03-23] MEDS: ASPIRIN PO SCH (10:14)
[2019-03-23] MEDS: LOVENOX SUBQ SCH (10:14)
[2019-03-23] MEDS: FOLIC ACID PO SCH (10:14)
[2019-03-23] MEDS: VALIUM PO SCH ×2 (10:14→20:23)
[2019-03-23] MEDS: VITAMIN B-1 PO SCH (10:15)
[2019-03-23] MEDS: FLOMAX PO SCH (10:15)
[2019-03-23] MEDS: CALTRATE 600 PO SCH (10:15)
[2019-03-23] MEDS: PROTONIX PO SCH (10:15)
--- NOTE | 2019-03-23 17:53 | PROGRESS NOTE ---
DATE: 03/23/2019 SUBJECTIVE: The patient has no complaints. States overall she is feeling. OBJECTIVE: Vital Signs: Temperature 97.7, pulse 88, respiratory 18, blood pressure 108/74. General: Patient is awake, currently in no respiratory distress. HEENT: Normocephalic. Neck: Supple. Cardiovascular: Regular rate. Chest: Clear. Abdomen: Soft. Neurologic: No new changes. ASSESSMENT: 1. Right-sided nephrolithiasis with urinary retention, status post ureteral stent, which was removed yesterday. 2. Cerebrovascular accident with expressive aphasia and right-sided hemiplegia. PLAN: We will continue the patient in the hospital until further transitional care can be performed. cc: Brian Hernandez MD
[2019-03-23] MEDS: MELATONIN PO SCH (20:23)
[2019-03-23] MEDS: LIPITOR PO SCH (20:23)
[2019-03-23] MEDS ORDERED: IMODIUM PO ONE (23:27)
[2019-03-23] MEDS: NORCO-7.5 PO PRN (23:37)
[2019-03-24] MEDS: PROTONIX PO SCH (06:37)
[2019-03-24] MEDS: ASPIRIN PO SCH (09:21)
[2019-03-24] MEDS: CALTRATE 600 PO SCH (09:21)
[2019-03-24] MEDS: FLOMAX PO SCH (09:21)
[2019-03-24] MEDS: VITAMIN B-1 PO SCH (09:21)
[2019-03-24] MEDS: VALIUM PO SCH ×2 (09:21→21:21)
[2019-03-24] MEDS: LOVENOX SUBQ SCH (09:21)
[2019-03-24] MEDS: FOLIC ACID PO SCH (09:22)
--- NOTE | 2019-03-24 12:37 | PROGRESS NOTE ---
DATE: 03/24/2019 SUBJECTIVE: Patient has no complaints; states she is feeling okay. OBJECTIVE: Vital Signs: On physical examination, vital signs reviewed. Temperature 97.8 degrees, pulse 73, respiratory rate 18, BP 105/70. General: Patient is awake, alert, currently in no distress. HEENT: Normocephalic. Neck: Supple. Cardiovascular: Regular rate. No murmurs. Chest: Clear. Abdomen: Soft. Extremities: Moves all extremities. ASSESSMENT: 1. Right-sided nephrolithiasis, improved. 2. Urinary retention, resolved, status post stent removal and Mancuso catheter removal. 3. Cerebrovascular accident in 2018. 4. Right-sided hemiplegia and expressive aphasia. PLAN: We will continue patient in the hospital until she can transition to further long-term care. cc: Brian Hernandez MD
[2019-03-24] MEDS: MELATONIN PO SCH (21:21)
[2019-03-24] MEDS: LIPITOR PO SCH (21:21)
[2019-03-25] MEDS: PROTONIX PO SCH (06:35)
[2019-03-25] MEDS: CALTRATE 600 PO SCH (08:53)
[2019-03-25] MEDS: FOLIC ACID PO SCH (08:53)
[2019-03-25] MEDS: VALIUM PO SCH ×2 (08:53→20:52)
[2019-03-25] MEDS: ASPIRIN PO SCH (08:53)
[2019-03-25] MEDS: VITAMIN B-1 PO SCH (08:53)
[2019-03-25] MEDS: FLOMAX PO SCH (08:54)
[2019-03-25] MEDS: LOVENOX SUBQ SCH (09:01)
[2019-03-25] MEDS: LIPITOR PO SCH (20:52)
[2019-03-25] MEDS: MELATONIN PO SCH (20:52)
--- NOTE | 2019-03-25 21:32 | PROGRESS NOTE ---
DATE: 03/25/2019 SUBJECTIVE: Patient overall has no complaints. PHYSICAL EXAMINATION: Physical unchanged.Vital Signs: Reviewed. Temperature 97.3 degrees, pulse 73, respiratory rate 18, BP 105/70. General: Patient is lying in bed. She is in no distress. She is currently reading. Breathing is nonlabored. Extremities: Moves all extremities. Neurologic: No new focal changes. ASSESSMENT: 1. Right-sided hemiplegia. 2. Expressive aphasia. 3. Anemia of chronic disease. 4. Recent right-sided nephrolithiasis with urinary retention status post stent placement and subsequent removal 2 days ago. She has a history of recurrent urinary infections. Her recent urine culture has been negative. We will continue to follow. She currently has had her Mancuso removed and is urinating well. We will transition to long-term care when available. cc: Biran Hernandez MD
[2019-03-26] MEDS: VALIUM PO SCH ×2 (09:04→20:35)
[2019-03-26] MEDS: FLOMAX PO SCH (09:04)
[2019-03-26] MEDS: CALTRATE 600 PO SCH (09:04)
[2019-03-26] MEDS: ASPIRIN PO SCH (09:04)
[2019-03-26] MEDS: LOVENOX SUBQ SCH (09:05)
[2019-03-26] MEDS: VITAMIN B-1 PO SCH (09:05)
[2019-03-26] MEDS: FOLIC ACID PO SCH (09:05)
[2019-03-26] MEDS: PROTONIX PO SCH (09:05)
--- NOTE | 2019-03-26 11:17 | PROGRESS NOTE ---
DATE: 03/26/2019 SUBJECTIVE: Patient is feeling fine. No complaints noted. OBJECTIVE: Vital Signs: Temperature 97.5 degrees, heart rate 84, respiratory rate 16, blood pressure 100/62, O2 saturation 97% on room air. On general examination, this is a chronically ill- appearing, 44-year-old female, lying in bed, in no acute distress. Cardiovascular: S1, S2 heard. No murmurs, gallops, or rubs. Regular rate and rhythm. Respiratory: Clear bilaterally to auscultation. No work of breathing or using accessory muscles. Abdomen: Soft, nontender to palpation. Bowel sounds present. No organomegaly. Extremities: No clubbing, cyanosis, or edema. Peripheral pulses present in both legs. Neurological: There is right-sided weakness secondary to stroke. ASSESSMENT AND PLAN: 1. History of stroke with right-sided hemiplegia. Aware. 2. Patient also has expressive aphasia. Those are old findings. There is no new neurological finding. We will continue to monitor. 3. Anemia of chronic disease. Aware. 4. Recent right-sided nephrolithiasis with urinary retention, status post stent placement and subsequent removal 3 days ago. Aware. The patient has been followed by Urology, but she is now fine. DISPOSITION: We will transition to long-term care when available. cc: Heath Valadez MD
[2019-03-26] MEDS: NORCO-7.5 PO PRN (18:28)
[2019-03-26] MEDS: MELATONIN PO SCH (20:35)
[2019-03-26] MEDS: LIPITOR PO SCH (20:35)
[2019-03-27 07:33] LABS: BASO# 0.08 X1000 (0.0-0.2); EOS# 0.38 X1000 (0.0-0.7); EOS% 4.8 % (0.0-10.0); HEMATOCRIT 29.8 % (37.0-47.0); HEMOGLOBIN 9.4 g/dL (12.0-16.0); IMM GRAN# 0.01 X1000 (0.0-0.04); IMM GRAN% 0.1 % (0.0-0.5); LYMPH# 2.08 X1000 (1.2-3.4); LYMPH% 26.1 % (20.5-51.1); MCH 29.3 PG (27-31); MCHC 31.5 g/dL (33-37); MCV 92.8 FL (81-99); MONO# 0.78 X1000 (0.11-0.59); MONO% 9.8 % (1.7-9.3); MPV 10.8 FL (7.4-10.4); NEUT# 4.63 X1000 (1.4-6.5); NEUT% 58.2 % (42.2-75.2); PLT 371 X1000 (130-400); RBC 3.21 XMIL (4.2-5.4); RDW 13.6 % (11.5-14.5); WBC 7.96 X1000 (4.8-10.8)
[2019-03-27 07:56] LABS: AGAP 15; BUN 20 mg/dL (8-22); CALCIUM 9.1 mg/dL (8.8-10.2); CHLORIDE 102 mmol/L (98-107); COSMO 283; CREATININE 0.4 mg/dL (0.5-0.9); ESTIMATED GFR > 60; GLUCOSE 109 mg/dL (70-104); POTASSIUM 4.3 mmol/L (3.5-5.1); SODIUM 140 mmol/L (136-145); TCO2 23 mmol/L (25-35)
[2019-03-27] MEDS: CALTRATE 600 PO SCH (09:34)
[2019-03-27] MEDS: PROTONIX PO SCH (09:34)
[2019-03-27] MEDS: VITAMIN B-1 PO SCH (09:34)
[2019-03-27] MEDS: FLOMAX PO SCH (09:34)
[2019-03-27] MEDS: VALIUM PO SCH ×2 (09:34→20:27)
[2019-03-27] MEDS: ASPIRIN PO SCH (09:34)
[2019-03-27] MEDS: FOLIC ACID PO SCH (09:34)
[2019-03-27] MEDS: LOVENOX SUBQ SCH (09:35)
--- NOTE | 2019-03-27 09:57 | PROGRESS NOTE ---
DATE: 03/27/2019 SUBJECTIVE: Patient reports feeling fine. No complaints noted at this time. No acute issues noted as per nursing staff overnight. OBJECTIVE: Vital Signs: Temperature 97.4 degrees, heart rate 88, respiratory rate 15, blood pressure 90/61, O2 saturation 95% on room air. General Examination: This is a 44-year-old female, lying in bed in no acute distress. Cardiovascular Exam: S1, S2 heard. No murmurs, gallops, or rubs. Regular rate and rhythm. Respiratory Exam: Clear bilaterally to auscultation. No work of breathing or using accessory muscles. Abdomen: Soft, nontender to palpation. Bowel sounds present. No organomegaly. Extremities: No clubbing, cyanosis, or edema. Peripheral pulses present in both legs. Neurological Exam: Patient has right-sided weakness secondary to stroke. ASSESSMENT AND PLAN: 1. History of stroke with right-sided hemiplegia, aware. 2. Expressive aphasia. Part of this stroke that this patient had before. No new neurological findings. We will continue to monitor. 3. Anemia of chronic disease, aware. 4. Recent right-sided nephrolithiasis with urinary retention, status post stent placement and subsequent removal of the stent 3 days ago, 3 days after procedure, aware. 5. Disposition: We will transition to long-term care facility when available. cc: Heath Valadez MD
[2019-03-27] MEDS: LIPITOR PO SCH (20:27)
[2019-03-27] MEDS: MELATONIN PO SCH (20:27)
[2019-03-28] MEDS: FOLIC ACID PO SCH (08:55)
[2019-03-28] MEDS: VITAMIN B-1 PO SCH (08:55)
[2019-03-28] MEDS: PROTONIX PO SCH (08:55)
[2019-03-28] MEDS: FLOMAX PO SCH (08:55)
[2019-03-28] MEDS: VALIUM PO SCH ×2 (08:55→21:01)
[2019-03-28] MEDS: ASPIRIN PO SCH (08:55)
[2019-03-28] MEDS: CALTRATE 600 PO SCH (08:55)
[2019-03-28] MEDS: LOVENOX SUBQ SCH ×2 (08:55→11:12)
--- NOTE | 2019-03-28 10:17 | PROGRESS NOTE ---
DATE: 03/28/2019 SUBJECTIVE: The patient reports no complaints at this time. She reports not being in pain. No other issues noted as per nursing staff overnight. OBJECTIVE: Vital Signs: Temperature 97.7, heart rate 101, respiratory rate 15, blood pressure 97/63, O2 saturation 96% on room air. General: This is a 44-year-old female, lying in bed in no acute distress. Cardiovascular: S1, S2 heard. No murmurs, gallops, or rubs. Regular rate and rhythm. Respiratory: Clear bilaterally to auscultation. No work of breathing or using accessory muscles. Abdomen: Soft. Nontender to palpation. Bowel sounds present. No organomegaly. Extremities: No clubbing, cyanosis, or edema. Peripheral pulses present in both legs. Neurological: The patient has right-sided weakness secondary to old stroke, but the speech is coherent. ASSESSMENT AND PLAN: 1. History of stroke with right-sided hemiplegia. Aware. 2. Expressive aphasia, part of the stroke, but she has good speech at this time. Will continue to monitor. 3. Anemia of chronic disease. Aware. 4. Recent right-sided nephrolithiasis with urinary retention, status post stent placement. That condition is completely resolved. 5. Disposition. We will transition to long-term care facility when available. cc: Heath Valadez MD
[2019-03-28] MEDS: NORCO-7.5 PO PRN ×2 (15:22→21:01)
[2019-03-28] MEDS: LIPITOR PO SCH (21:01)
[2019-03-28] MEDS: MELATONIN PO SCH (21:01)
[2019-03-29] MEDS: NORCO-7.5 PO PRN (03:39)
[2019-03-29] MEDS: FLOMAX PO SCH (09:47)
[2019-03-29] MEDS: LOVENOX SUBQ SCH (09:47)
[2019-03-29] MEDS: PROTONIX PO SCH (09:47)
[2019-03-29] MEDS: ASPIRIN PO SCH (09:47)
[2019-03-29] MEDS: FOLIC ACID PO SCH (09:47)
[2019-03-29] MEDS: VITAMIN B-1 PO SCH (09:47)
[2019-03-29] MEDS: VALIUM PO SCH ×2 (09:48→21:31)
[2019-03-29] MEDS: CALTRATE 600 PO SCH (09:48)
--- NOTE | 2019-03-29 12:45 | PROGRESS NOTE ---
DATE: 03/29/2019 SUBJECTIVE: The patient reports no complaints at this time, and no acute issues noted as per nursing staff overnight. OBJECTIVE: Vital Signs: Temperature 97.4 degrees, heart rate 71, respiratory rate 18, blood pressure 104/60 and O2 saturation 98% on room air. General: This is a 44-year-old female lying in bed in no acute distress. Cardiovascular: S1, S2 heard. No murmurs, gallops, or rubs. Regular rate and rhythm. Respiratory: Clear bilaterally to auscultation. No work of breathing or using accessory muscles. Abdomen: Soft. Nontender to palpation. Bowel sounds present. No organomegaly. Extremities: No clubbing, cyanosis, or edema. Peripheral pulses present in both legs. Neurological: Patient has right-sided weakness secondary to old stroke. His speech is coherent most of the time. ASSESSMENT AND PLAN: 1. Acute history of stroke with right side hemiplegia and expressive aphasia aware. 2. Anemia of chronic disease aware. 3. Recent right-sided nephrolithiasis with urinary retention status post stent placement. That condition is completely resolved. 4. Disposition. At this point, we will transition to long-term care facility whenever a bed is available for her. cc: Heath Valadez MD
[2019-03-29] MEDS: MELATONIN PO SCH (21:31)
[2019-03-29] MEDS: LIPITOR PO SCH (21:31)
[2019-03-30] MEDS: FLOMAX PO SCH (08:34)
[2019-03-30] MEDS: FOLIC ACID PO SCH (08:34)
[2019-03-30] MEDS: VITAMIN B-1 PO SCH (08:34)
[2019-03-30] MEDS: PROTONIX PO SCH (08:35)
[2019-03-30] MEDS: VALIUM PO SCH ×2 (08:35→22:53)
[2019-03-30] MEDS: ASPIRIN PO SCH (08:35)
[2019-03-30] MEDS: CALTRATE 600 PO SCH (08:35)
--- NOTE | 2019-03-30 09:17 | PROGRESS NOTE ---
DATE: 03/30/2019 SUBJECTIVE: The patient reports feeling fine. No complaints at this time. No acute issues noted as per nursing staff overnight. OBJECTIVE: Vital Signs: Temperature 97.6 degrees, heart rate 86, respiratory rate 20, blood pressure 102/69, O2 saturation 100% on room air. General Examination: This is a 44-year-old female lying in bed, in no acute distress. Cardiovascular: S1, S2 heard. No murmurs, gallops, or rubs. Regular rate and rhythm. Respiratory: Clear bilaterally to auscultation. No work of breathing or using accessory muscles. Abdomen: Soft, nontender to palpation. Bowel sounds present. No organomegaly. Extremities: No clubbing, cyanosis, or edema. Peripheral pulses present in both legs. Neurological: Patient has a residual right-sided hemiparesis secondary to old stroke. Speech is coherent most of the time. ASSESSMENT AND PLAN: 1. History of stroke with right-sided hemiplegia and expressive aphasia. 2. Anemia of chronic disease. 3. Recent right-sided nephrolithiasis with urinary retention status post stent placement. 4. At this point, all medical conditions are stable. We are awaiting transition to long-term care facility whenever a bed is available for her. cc: Heath Valadez MD
[2019-03-30] MEDS: LOVENOX SUBQ SCH (10:15)
[2019-03-30] MEDS: LIPITOR PO SCH (22:53)
[2019-03-30] MEDS: MELATONIN PO SCH (22:53)
[2019-03-31] MEDS: PROTONIX PO SCH (06:32)
[2019-03-31] MEDS: CALTRATE 600 PO SCH (09:56)
[2019-03-31] MEDS: LOVENOX SUBQ SCH (09:56)
[2019-03-31] MEDS: VITAMIN B-1 PO SCH (09:56)
[2019-03-31] MEDS: FOLIC ACID PO SCH (09:56)
[2019-03-31] MEDS: FLOMAX PO SCH (09:56)
[2019-03-31] MEDS: ASPIRIN PO SCH (09:56)
[2019-03-31] MEDS: VALIUM PO SCH ×2 (09:59→20:39)
--- NOTE | 2019-03-31 12:30 | PROGRESS NOTE ---
DATE: 03/31/2019 SUBJECTIVE: Patient reports feeling fine. Denies any complaints at this time. No back pain. No problem while she pees. OBJECTIVE: Vital Signs: Temperature 97.4 degrees, heart rate 81, respiratory rate 18, blood pressure 102/69, O2 saturation 97% on room air. General Examination: This is a chronically ill- appearing, 44-year-old female, lying in bed in no acute distress. Cardiovascular exam: S1, S2 heard. No murmurs, gallops, or rubs. Regular rate and rhythm. Respiratory exam: Clear bilaterally to auscultation. No work of breathing or using accessory muscles. Abdomen: Soft, nontender to palpation. Bowel sounds present. No organomegaly. Neurological exam: The patient has residual right-sided hemiparesis secondary to old stroke. Speech is coherent most of the time. ASSESSMENT: 1. History of a stroke with right-sided hemiplegia and expressive aphasia. 2. Anemia of chronic disease. 3. Recent right-sided nephrolithiasis with urinary retention, status post stent placement that has been removed already. PLAN: At this point, patient medically is stable. We are awaiting transition to long-term care facility whenever a bed is available for her. cc: Heath Valadez MD
[2019-03-31] MEDS: LIPITOR PO SCH (20:39)
[2019-03-31] MEDS: MELATONIN PO SCH (20:39)
[2019-04-01] MEDS: NORCO-7.5 PO PRN ×2 (02:43→20:49)
[2019-04-01] MEDS: FLOMAX PO SCH (09:39)
[2019-04-01] MEDS: VITAMIN B-1 PO SCH (09:39)
[2019-04-01] MEDS: FOLIC ACID PO SCH (09:39)
[2019-04-01] MEDS: ASPIRIN PO SCH (09:39)
[2019-04-01] MEDS: CALTRATE 600 PO SCH (09:39)
[2019-04-01] MEDS: LOVENOX SUBQ SCH (09:39)
[2019-04-01] MEDS: VALIUM PO SCH ×2 (09:39→20:49)
[2019-04-01] MEDS: PROTONIX PO SCH (09:40)
--- NOTE | 2019-04-01 15:48 | PROGRESS NOTE ---
DATE: 04/01/2019 SUBJECTIVE: No acute events overnight. No new complaints. OBJECTIVE: Vital Signs: Temperature 97.5 degrees, pulse 79, respiratory rate 18, blood pressure 106/69 oxygen saturation 97% on room air. General Examination: Chronically ill-appearing patient, , in no acute distress. Head: Normocephalic. Neck: Supple. No JVD. Central trachea. Chest: Clear to auscultation. No wheezing. No rales. Abdomen: Soft, nontender, nondistended. No hepatosplenomegaly. Extremities: No clubbing. No cyanosis. Neurological: The patient is alert. She does have right-sided hemiparesis due to stroke. Speech is coherent most of the time. ASSESSMENT: 1. History of stroke with right-sided hemiplegia and expressive aphasia. 2. Anemia of chronic disease. 3. Recent right-sided nephrolithiasis with urinary retention, status post stent placement that has been removed already. PLAN: This patient is medically stable. We are awaiting transition to long-term care. paste up worker and case mgr on board. cc: Trino Cervantes MD
[2019-04-01] MEDS: MELATONIN PO SCH (20:49)
[2019-04-01] MEDS: LIPITOR PO SCH (20:49)
[2019-04-02] MEDS: FLOMAX PO SCH (08:17)
[2019-04-02] MEDS: VALIUM PO SCH ×2 (08:17→21:19)
[2019-04-02] MEDS: CALTRATE 600 PO SCH (08:17)
[2019-04-02] MEDS: FOLIC ACID PO SCH (08:17)
[2019-04-02] MEDS: VITAMIN B-1 PO SCH (08:17)
[2019-04-02] MEDS: LOVENOX SUBQ SCH ×2 (08:18→10:04)
[2019-04-02] MEDS: ASPIRIN PO SCH (08:18)
[2019-04-02] MEDS: PROTONIX PO SCH (08:18)
--- NOTE | 2019-04-02 19:37 | PROGRESS NOTE ---
DATE: 04/02/2019 SUBJECTIVE: The patient is seen. She has no new complaints. She is eating breakfast. OBJECTIVE: Vital Signs: Temperature 98 degrees, pulse 82, respiratory rate 20, BP 93/55. General: Patient is in no current distress. She is awake, pleasant to talk with. Neck: Supple, no JVD. Cardiovascular: Regular rate and rhythm. Chest: Nonlabored. No wheezing, no crackles. Abdomen: Soft. Extremities: No edema. Neurologic: No focal changes. ASSESSMENT: 1. Right-sided hemiplegia. 2. Expressive aphasia. 3. Anemia of chronic disease. 4. Right-sided nephrolithiasis, resolved. PLAN: We will continue patient in the hospital and continue supportive care until which time she can transition to further long-term care. cc: Brian Hernandez MD
[2019-04-02] MEDS: MELATONIN PO SCH (21:19)
[2019-04-02] MEDS: LIPITOR PO SCH (21:19)
[2019-04-03] MEDS: PROTONIX PO SCH ×2 (06:23→06:38)
[2019-04-03] MEDS: CALTRATE 600 PO SCH (09:42)
[2019-04-03] MEDS: FLOMAX PO SCH (09:42)
[2019-04-03] MEDS: LOVENOX SUBQ SCH (09:42)
[2019-04-03] MEDS: VALIUM PO SCH ×2 (09:42→21:35)
[2019-04-03] MEDS: FOLIC ACID PO SCH (09:42)
[2019-04-03] MEDS: VITAMIN B-1 PO SCH (09:42)
[2019-04-03] MEDS: ASPIRIN PO SCH (09:42)
[2019-04-03] MEDS: LIPITOR PO SCH (21:35)
[2019-04-03] MEDS: MELATONIN PO SCH (21:35)
--- NOTE | 2019-04-03 22:10 | PROGRESS NOTE ---
DATE: 04/03/2019 SUBJECTIVE: Patient has no complaints. PHYSICAL EXAMINATION: Vital Signs: Reviewed and stable. Her physical exam is unchanged. She is currently eating breakfast. PLAN: We will continue patient in the hospital. Continue symptomatic care as needed and await hopefully transfer to rehab. cc: Brian Hernandez MD MTDD
[2019-04-04] MEDS: PROTONIX PO SCH (06:34)
[2019-04-04] MEDS: FOLIC ACID PO SCH (09:46)
[2019-04-04] MEDS: FLOMAX PO SCH (09:46)
[2019-04-04] MEDS: VALIUM PO SCH ×2 (09:46→21:26)
[2019-04-04] MEDS: CALTRATE 600 PO SCH (09:46)
[2019-04-04] MEDS: VITAMIN B-1 PO SCH (09:46)
[2019-04-04] MEDS: ASPIRIN PO SCH (09:46)
[2019-04-04] MEDS: LOVENOX SUBQ SCH (09:46)
[2019-04-04] MEDS: LIPITOR PO SCH (21:26)
[2019-04-04] MEDS: MELATONIN PO SCH (21:26)
[2019-04-04] MEDS: NORCO-7.5 PO PRN (21:30)
--- NOTE | 2019-04-04 21:48 | PROGRESS NOTE ---
DATE: 04/04/2019 SUBJECTIVE: The patient has no complaints. OBJECTIVE/PHYSICAL EXAMINATION: Vital Signs: Reviewed. Temperature 97.6, pulse 81, respiratory 18, BP 115/52. General: Patient is currently in no respiratory distress. She is lying in bed. Physical exam is unchanged. CV: Regular rate. Chest: Clear. ASSESSMENT: History of stroke with right-sided hemiplegia and expressive aphasia. PLAN: We will continue patient in the hospital until further long-term placement can be obtained. cc: Brian Hernandez MD
[2019-04-05] MEDS: PROTONIX PO SCH ×2 (06:12→10:05)
[2019-04-05] MEDS: FOLIC ACID PO SCH (10:02)
[2019-04-05] MEDS: FLOMAX PO SCH (10:02)
[2019-04-05] MEDS: VALIUM PO SCH ×2 (10:02→21:35)
[2019-04-05] MEDS: CALTRATE 600 PO SCH (10:02)
[2019-04-05] MEDS: VITAMIN B-1 PO SCH (10:02)
[2019-04-05] MEDS: ASPIRIN PO SCH (10:03)
[2019-04-05] MEDS: LOVENOX SUBQ SCH (10:04)
[2019-04-05] MEDS: MELATONIN PO SCH (21:32)
[2019-04-05] MEDS: LIPITOR PO SCH (21:32)
--- NOTE | 2019-04-05 22:19 | PROGRESS NOTE ---
DATE: 04/05/2019 SUBJECTIVE: The patient has no complaints. She is sleeping, easily awakened. OBJECTIVE: Vital signs reviewed. She is in no distress. CV: Regular rate. Chest clear. ASSESSMENT: 1. History of stroke with right-sided hemiplegia and expressive aphasia. 2. Anemia of chronic disease. 3. History of nephrolithiasis, recently requiring a stent placement due to urinary retention. Stent has been removed. PLAN: We will continue the patient in the hospital until she can transition to long-term care. cc: Brian Hernandez MD
[2019-04-06] MEDS: PROTONIX PO SCH ×2 (06:41→09:44)
[2019-04-06] MEDS: CALTRATE 600 PO SCH (09:43)
[2019-04-06] MEDS: VALIUM PO SCH ×2 (09:44→21:40)
[2019-04-06] MEDS: FLOMAX PO SCH (09:44)
[2019-04-06] MEDS: VITAMIN B-1 PO SCH (09:44)
[2019-04-06] MEDS: FOLIC ACID PO SCH (09:44)
[2019-04-06] MEDS: LOVENOX SUBQ SCH (09:45)
[2019-04-06] MEDS: ASPIRIN PO SCH (09:45)
[2019-04-06] MEDS: LIPITOR PO SCH (21:39)
[2019-04-06] MEDS: MELATONIN PO SCH (21:40)
--- NOTE | 2019-04-06 22:43 | PROGRESS NOTE ---
DATE: 04/06/2019 SUBJECTIVE: Patient overall with no complaints. OBJECTIVE: Vital signs reviewed. Temperature 97.8 degrees, pulse 71, respiratory 18, BP 110/76.General: The patient is no distress. She is lying in bed. She is eating well. Neck supple. CV: Regular rate. Chest clear. Neurologic: No focal new changes. ASSESSMENT: 1. Expressive aphasia. 2. Right-sided hemiplegia. 3. Anemia of chronic disease. 4. Adult failure to thrive. PLAN: We will continue the patient in the hospital. Continue symptomatic treatment until which time she can transition to further long-term care. cc: Brian Hernandez MD
[2019-04-07] MEDS: PROTONIX PO SCH (06:32)
[2019-04-07] MEDS: VITAMIN B-1 PO SCH (09:33)
[2019-04-07] MEDS: FLOMAX PO SCH (09:33)
[2019-04-07] MEDS: CALTRATE 600 PO SCH (09:33)
[2019-04-07] MEDS: LOVENOX SUBQ SCH (09:34)
[2019-04-07] MEDS: ASPIRIN PO SCH (09:34)
[2019-04-07] MEDS: FOLIC ACID PO SCH (09:34)
[2019-04-07] MEDS: VALIUM PO SCH ×2 (09:34→20:41)
[2019-04-07] MEDS: MELATONIN PO SCH (20:41)
[2019-04-07] MEDS: LIPITOR PO SCH (20:41)
--- NOTE | 2019-04-08 02:13 | PROGRESS NOTE ---
DATE: 04/07/2019 SUBJECTIVE: No current complaints. PHYSICAL EXAMINATION: Vital Signs: Reviewed and stable. Physical exam is unchanged. ASSESSMENT: The patient will continue in the hospital until which time further long-term care and placement can be arranged. Currently, she is awake. She is in no distress. Still has right- sided hemiplegia which will unlikely improve and expressive aphasia. cc: Brian Hernandez MD
[2019-04-08] MEDS: FOLIC ACID PO SCH (09:37)
[2019-04-08] MEDS: VALIUM PO SCH ×2 (09:37→22:03)
[2019-04-08] MEDS: CALTRATE 600 PO SCH (09:37)
[2019-04-08] MEDS: PROTONIX PO SCH (09:37)
[2019-04-08] MEDS: LOVENOX SUBQ SCH (09:37)
[2019-04-08] MEDS: ASPIRIN PO SCH (09:37)
[2019-04-08] MEDS: VITAMIN B-1 PO SCH (09:37)
--- NOTE | 2019-04-08 21:41 | PROGRESS NOTE ---
DATE: 04/08/2019 SUBJECTIVE: Patient without complaints. She is eating breakfast. PHYSICAL EXAMINATION: Vital signs reviewed. Temperature 97 degrees, pulse 97, respiratory 20, BP 116/73. Physical exam is unchanged. ASSESSMENT: 1. History of cerebrovascular accident with right-sided hemiplegia and expressive aphasia. 2. History of nephrolithiasis, status post urinary retention which was improved with stent placement and stone removal. The stent has since been removed. 3. Adult failure to thrive. PLAN: We will continue the patient in the hospital. Continue symptomatic care until she can transition to further long-term care. cc: Brian Hernandez MD
[2019-04-08] MEDS: MELATONIN PO SCH (22:03)
[2019-04-08] MEDS: LIPITOR PO SCH (22:03)
[2019-04-09] MEDS: LOVENOX SUBQ SCH ×2 (08:57→09:22)
[2019-04-09] MEDS: FOLIC ACID PO SCH (08:58)
[2019-04-09] MEDS: ASPIRIN PO SCH (08:58)
[2019-04-09] MEDS: VITAMIN B-1 PO SCH (08:58)
[2019-04-09] MEDS: VALIUM PO SCH ×2 (08:58→21:06)
[2019-04-09] MEDS: CALTRATE 600 PO SCH (08:58)
[2019-04-09] MEDS: PROTONIX PO SCH (08:58)
--- NOTE | 2019-04-09 16:35 | PROGRESS NOTE ---
DATE: 04/09/2019 SUBJECTIVE: The patient has no major complaints. OBJECTIVE: Vital Signs: Blood pressure 109/68, heart rate 78, respiratory rate of 16, temperature 98.1 degrees, O2 saturation is 97% on room air. Cardiovascular: Regular rate and rhythm. Pulmonary: Bilateral breath sounds. Clear to auscultation. Gastrointestinal: Soft, nontender, and nondistended. Bowel sounds are positive. LABORATORY DATA: No new data. She seems to be doing okay. PROBLEM LIST: 1. History of cerebrovascular accident, right-sided hemiplegia, expressive aphasia. She is unable take care of herself. We will continue to follow. 2. Nephrolithiasis, urinary retention, status post stent placement. Stent has been removed. DISPOSITION: Pending long-term care. We will continue to follow. cc: Johnny Franco MD
[2019-04-09] MEDS: LIPITOR PO SCH (21:06)
[2019-04-09] MEDS: MELATONIN PO SCH (21:06)
[2019-04-10] MEDS: PROTONIX PO SCH ×2 (07:50→08:53)
[2019-04-10] MEDS: VALIUM PO SCH ×2 (08:53→21:22)
[2019-04-10] MEDS: CALTRATE 600 PO SCH (08:53)
[2019-04-10] MEDS: ASPIRIN PO SCH (08:53)
[2019-04-10] MEDS: FOLIC ACID PO SCH (08:53)
[2019-04-10] MEDS: VITAMIN B-1 PO SCH (08:53)
[2019-04-10] MEDS: LOVENOX SUBQ SCH ×2 (08:54→10:18)
--- NOTE | 2019-04-10 16:46 | PROGRESS NOTE ---
DATE: 04/10/2019 SUBJECTIVE: Patient has no focal complaints. OBJECTIVE: Vital Signs: Blood pressure is 102/77, heart rate of 85, respiratory rate of 16, temperature 97.9 degrees, satting 98% on room air. Cardiovascular: Regular rate and rhythm. Pulmonary: Bilateral breath sounds clear to auscultation. GI: Soft, nontender, nondistended. Bowel sounds are positive. Extremity exam: No clubbing or cyanosis. Lymphatic exam: No peripheral edema. Neurological exam: Nonfocal. LABORATORY DATA: Her white count was 7, H and H 9 and 29, platelets 371. Creatinine was normal several days ago. PROBLEM LIST: 1. Cerebrovascular accident, right-sided hemiplegia, expressive aphasia, unable to take care of self. Continue treatment and follow. 2. Nephrolithiasis. Urinary retention. Staphylococcus epinephrine urinary tract infection. We will continue to monitor. She is status post stent after a large kidney stone. We will continue to monitor closely. cc: Johnny Franco MD
[2019-04-10] MEDS: MELATONIN PO SCH (21:23)
[2019-04-11] MEDS: PROTONIX PO SCH (09:07)
[2019-04-11] MEDS: ASPIRIN PO SCH (09:07)
[2019-04-11] MEDS: FOLIC ACID PO SCH (09:07)
[2019-04-11] MEDS: CALTRATE 600 PO SCH (09:07)
[2019-04-11] MEDS: VITAMIN B-1 PO SCH (09:08)
[2019-04-11] MEDS: LOVENOX SUBQ SCH (09:08)
[2019-04-11] MEDS: VALIUM PO SCH ×2 (09:08→22:11)
--- NOTE | 2019-04-11 16:19 | PROGRESS NOTE ---
DATE: 04/11/2019 SUBJECTIVE: Patient has no major complaints. OBJECTIVE: Vital Signs: Blood pressure is 106/76, heart rate of 96, respiratory rate of 18, temperature 98.3 degrees, satting 100% on room air. Cardiovascular: Regular rate and rhythm. Pulmonary: Bilateral breath sounds. Clear to auscultation. GI: Soft, nontender, nondistended. Bowel sounds are positive. Extremity exam: No clubbing or cyanosis. Lymphatic exam: No peripheral edema. Neurological exam: Nonfocal. LABORATORY DATA: Unremarkable. PROBLEM LIST: 1. Hemiplegia, cerebral palsy, unable to care for herself. We will continue medical management. 2. History of complicated urinary tract infection with urinary obstruction, status post stent. That seems to be stable. DISPOSITION: Pending clinical status. We will continue to follow. cc: Johnny Franco MD
[2019-04-11] MEDS: MELATONIN PO SCH (22:11)
[2019-04-12] MEDS: PROTONIX PO SCH ×2 (06:22→06:44)
[2019-04-12] MEDS: FOLIC ACID PO SCH (09:23)
[2019-04-12] MEDS: ASPIRIN PO SCH (09:24)
[2019-04-12] MEDS: CALTRATE 600 PO SCH (09:24)
[2019-04-12] MEDS: LOVENOX SUBQ SCH (09:24)
[2019-04-12] MEDS: VITAMIN B-1 PO SCH (09:24)
[2019-04-12] MEDS: VALIUM PO SCH ×2 (09:34→20:01)
[2019-04-12] MEDS: MELATONIN PO SCH (20:01)
--- NOTE | 2019-04-12 20:31 | PROGRESS NOTE ---
DATE: 04/12/2019 SUBJECTIVE: The patient has no major complaints. She seems to be doing okay. OBJECTIVE: Blood pressure 114/72, heart rate 85, respiratory rate 18, temperature 97.9 degrees, 100% on room air.Cardiovascular: Regular rate and rhythm. Pulmonary: Bilateral breath sounds, clear to auscultation. GI: Soft, nontender, nondistended. Bowel sounds are positive. LABORATORY DATA: No new data today. ASSESSMENT AND PLAN: Problem list: 1. Hemiplegia, cerebral palsy, unable to maintain self-care. We will continue treatment and follow. 2. History of complicated urinary tract infection with urinary obstruction, status post JJ stent. That also seems to be stable, and I think the stent has been removed. 3. Disposition: Just waiting on long-term care approval. cc: Johnny Franco MD
[2019-04-13] MEDS: PROTONIX PO SCH (07:05)
[2019-04-13] MEDS: VALIUM PO SCH ×2 (09:39→21:03)
[2019-04-13] MEDS: VITAMIN B-1 PO SCH (09:39)
[2019-04-13] MEDS: CALTRATE 600 PO SCH (09:40)
[2019-04-13] MEDS: LOVENOX SUBQ SCH (09:40)
[2019-04-13] MEDS: FOLIC ACID PO SCH (09:40)
[2019-04-13] MEDS: ASPIRIN PO SCH (09:40)
[2019-04-13] MEDS: NORCO-7.5 PO PRN ×2 (10:47→21:03)
--- NOTE | 2019-04-13 17:01 | PROGRESS NOTE ---
DATE: 04/13/2019 SUBJECTIVE: Patient has no major complaints. OBJECTIVE: Vital Signs: Blood pressure is 97/70, heart rate of 93, respiratory rate 18, temperature 98 degrees, 97% on room air. Cardiovascular: Regular rate and rhythm. Pulmonary: Bilateral breath sounds clear to auscultation. GI: Soft, nontender, nondistended. Bowel sounds are positive. LABORATORY DATA: White count 7, hemoglobin and hematocrit 9 and 29, platelets 371,000. ASSESSMENT: 1. Hemiplegia. 2. Cerebral palsy. She is unable to maintain her self-care. She has no guardian and we are still working on long- term placement. She has a history of complicated urinary tract infection, JJ stent, but all that is stable. DISPOSITION: Pending her discharge status. cc: Johnny Franco MD
[2019-04-13] MEDS: MELATONIN PO SCH (21:03)
[2019-04-14] MEDS: PROTONIX PO SCH (06:33)
[2019-04-14] MEDS: CALTRATE 600 PO SCH (10:39)
[2019-04-14] MEDS: FOLIC ACID PO SCH (10:39)
[2019-04-14] MEDS: VALIUM PO SCH ×2 (10:39→21:35)
[2019-04-14] MEDS: VITAMIN B-1 PO SCH (10:39)
[2019-04-14] MEDS: LOVENOX SUBQ SCH (10:40)
[2019-04-14] MEDS: ASPIRIN PO SCH (10:40)
[2019-04-14] MEDS: NORCO-7.5 PO PRN ×2 (10:48→21:32)
[2019-04-14] MEDS: MELATONIN PO SCH (21:32)
--- NOTE | 2019-04-15 05:56 | PROGRESS NOTE ---
DATE: 04/14/2019 SUBJECTIVE: Patient has no major complaints. She is lying in bed. OBJECTIVE: Vital signs: Stable vital signs. Blood pressure 96/58, heart rate 100, respiratory rate 16, temperature 97.9 degrees. Cardiovascular: Regular rate and rhythm. Pulmonary: Bilateral breath sounds, clear to auscultation. Gastrointestinal: Soft, nontender, nondistended. Bowel sounds are positive. LABS: No new labs today. PROBLEM LIST: Hemiplegia, cerebral palsy. The patient is stable currently. We will continue to provide supportive care. She is unable to take herself, she has no caregivers available. We are looking at long-term placement. Once that is available, hopefully, we will be able to discharge her soon. cc: Johnny Franco MD
[2019-04-15] MEDS: PROTONIX PO SCH (06:37)
[2019-04-15] MEDS: FOLIC ACID PO SCH (10:06)
[2019-04-15] MEDS: VALIUM PO SCH ×2 (10:06→20:57)
[2019-04-15] MEDS: VITAMIN B-1 PO SCH (10:06)
[2019-04-15] MEDS: ASPIRIN PO SCH (10:06)
[2019-04-15] MEDS: CALTRATE 600 PO SCH (10:07)
[2019-04-15] MEDS: LOVENOX SUBQ SCH (10:07)
[2019-04-15] MEDS: MIRALAX PO SCH (10:13)
--- NOTE | 2019-04-15 17:29 | PROGRESS NOTE ---
DATE: 04/15/2019 SUBJECTIVE: Patient has no major complaints. OBJECTIVE: Vital signs: Blood pressure is 109/63, heart rate 96, respiratory rate 16, temperature 97.9 degrees. Cardiovascular: Regular rate and rhythm. Pulmonary: Clear to auscultation bilaterally. GI: Soft, nontender, nondistended. Bowel sounds are positive. ASSESSMENT AND PLAN: Hemiplegia, cerebral palsy, persistent expressive aphasia. Unable to really take care of herself. Awaiting long-term placement. We will continue to follow closely. cc: Johnny Franco MD
[2019-04-15] MEDS: NORCO-7.5 PO PRN (18:16)
[2019-04-15] MEDS: MELATONIN PO SCH (20:57)
[2019-04-16] MEDS: NORCO-7.5 PO PRN ×2 (02:16→20:42)
[2019-04-16] MEDS: VITAMIN B-1 PO SCH (10:59)
[2019-04-16] MEDS: LOVENOX SUBQ SCH (10:59)
[2019-04-16] MEDS: FOLIC ACID PO SCH (10:59)
[2019-04-16] MEDS: MIRALAX PO SCH ×2 (11:00→11:09)
[2019-04-16] MEDS: PROTONIX PO SCH (11:00)
[2019-04-16] MEDS: ASPIRIN PO SCH (11:00)
[2019-04-16] MEDS: VALIUM PO SCH ×2 (11:00→20:42)
[2019-04-16] MEDS: CALTRATE 600 PO SCH (11:00)
--- NOTE | 2019-04-16 14:49 | PROGRESS NOTE ---
DATE: 04/16/2019 SUBJECTIVE: Patient seen. She has no new complaints. Knows she is eating a muffin this morning. OBJECTIVE: Vital Signs: Reviewed. Temperature 98 degrees, pulse 99, respiratory rate 18, BP 118/73. General: Patient is in no distress. She is sitting in her bed, eating a muffin. HEENT: Normocephalic. Neck: Supple. Cardiovascular: Regular rate. Chest: Clear. Abdomen: Soft. ASSESSMENT: 1. Hemiplegia. 2. Cerebral palsy. 3. Persistent expressive aphasia. 4. Adult failure to thrive. PLAN: We will continue patient in the hospital. Unfortunately, she is not capable of caring for herself. We will continue to await placement. cc: Brian Hernandez MD
[2019-04-16] MEDS: MELATONIN PO SCH (20:43)
[2019-04-17] MEDS: VALIUM PO SCH ×2 (09:24→21:49)
[2019-04-17] MEDS: VITAMIN B-1 PO SCH (09:24)
[2019-04-17] MEDS: FOLIC ACID PO SCH (09:24)
[2019-04-17] MEDS: ASPIRIN PO SCH (09:25)
[2019-04-17] MEDS: CALTRATE 600 PO SCH (09:25)
[2019-04-17] MEDS: LOVENOX SUBQ SCH (09:25)
[2019-04-17] MEDS: PROTONIX PO SCH (09:25)
[2019-04-17] MEDS: MIRALAX PO SCH (12:28)
--- NOTE | 2019-04-17 19:45 | PROGRESS NOTE ---
DATE: 04/17/2019 SUBJECTIVE: Patient has no new complaints. OBJECTIVE: Vital signs reviewed, unchanged, temperature 98 degrees, pulse 76, respiratory rate 20, BP 95/53. Physical exam is unchanged. ASSESSMENT: 1. Hemiplegia. 2. Cerebral palsy. 3. Persistent expressive aphasia. 4. Left-sided weakness due to recent cerebrovascular accident. PLAN: We will continue patient in the hospital. Continue to follow. Further orders as needed. cc: Brian Hernandez MD
[2019-04-17] MEDS: MELATONIN PO SCH (21:50)
[2019-04-18] MEDS: MIRALAX PO SCH (09:22)
[2019-04-18] MEDS: LOVENOX SUBQ SCH (09:23)
[2019-04-18] MEDS: PROTONIX PO SCH (09:24)
[2019-04-18] MEDS: ASPIRIN PO SCH (09:24)
[2019-04-18] MEDS: FOLIC ACID PO SCH (09:24)
[2019-04-18] MEDS: CALTRATE 600 PO SCH (09:24)
[2019-04-18] MEDS: VALIUM PO SCH ×2 (09:24→21:13)
[2019-04-18] MEDS: VITAMIN B-1 PO SCH (09:24)
--- NOTE | 2019-04-18 19:48 | PROGRESS NOTE ---
DATE: 04/18/2019 SUBJECTIVE: Patient has no complaints. PHYSICAL EXAMINATION: Vital Signs: Reviewed and stable. Exam: Her physical exam is unchanged. ASSESSMENT: Unchanged. We will continue to follow. Hopefully she can discharged to rehab, by long-term placement at some point in the future. cc: Brian Hernandez MD
[2019-04-18] MEDS: MELATONIN PO SCH (21:13)
[2019-04-18] MEDS: IMODIUM PO PRN (21:15)
[2019-04-19] MEDS: PROTONIX PO SCH (06:31)
[2019-04-19] MEDS: CALTRATE 600 PO SCH (08:43)
[2019-04-19] MEDS: VALIUM PO SCH ×2 (08:43→20:42)
[2019-04-19] MEDS: ASPIRIN PO SCH (08:43)
[2019-04-19] MEDS: VITAMIN B-1 PO SCH (08:43)
[2019-04-19] MEDS: FOLIC ACID PO SCH (08:44)
[2019-04-19] MEDS: LOVENOX SUBQ SCH ×2 (08:44→09:20)
[2019-04-19] MEDS: MIRALAX PO SCH (08:56)
--- NOTE | 2019-04-19 18:39 | PROGRESS NOTE ---
DATE: 04/19/2019 SUBJECTIVE: The patient has no new complaints. OBJECTIVE: She is awake, alert. She is in no distress. Vital signs reviewed. Temperature 97.8 degrees, pulse stable, respiratory rate 18, BP 119/79. General: The patient is lying in the bed, sleeping, easily awakens. Physical exam unchanged. ASSESSMENT AND PLAN: We will continue to adjust as needed. She has a known history of hemiplegia, cerebral palsy and expressive aphasia due to previous cerebrovascular accidents. We will continue to await placement. cc: Brian Hernandez MD
[2019-04-19] MEDS: MELATONIN PO SCH (20:42)
[2019-04-20] MEDS: MIRALAX PO SCH (08:04)
[2019-04-20] MEDS: FOLIC ACID PO SCH (08:04)
[2019-04-20] MEDS: LOVENOX SUBQ SCH ×3 (08:04→10:22)
[2019-04-20] MEDS: PROTONIX PO SCH (08:05)
[2019-04-20] MEDS: CALTRATE 600 PO SCH (08:05)
[2019-04-20] MEDS: VALIUM PO SCH ×2 (08:05→20:23)
[2019-04-20] MEDS: VITAMIN B-1 PO SCH (08:05)
[2019-04-20] MEDS: ASPIRIN PO SCH (08:05)
[2019-04-20] MEDS: MELATONIN PO SCH (20:23)
--- NOTE | 2019-04-20 21:43 | PROGRESS NOTE ---
DATE: 04/20/2019 SUBJECTIVE: Patient has no complaints. PHYSICAL EXAMINATION: Vital Signs: Reviewed. Stable, unchanged physical exam. ASSESSMENT: The patient will continue in the hospital until long-term care can be arranged. No change in her current and chronic diagnoses. cc: Brian Hernandez MD
[2019-04-21] MEDS: PROTONIX PO SCH (06:52)
[2019-04-21] MEDS: MIRALAX PO SCH (08:41)
[2019-04-21] MEDS: ASPIRIN PO SCH (08:41)
[2019-04-21] MEDS: CALTRATE 600 PO SCH (08:41)
[2019-04-21] MEDS: VITAMIN B-1 PO SCH (08:41)
[2019-04-21] MEDS: VALIUM PO SCH ×2 (08:41→21:29)
[2019-04-21] MEDS: FOLIC ACID PO SCH (08:41)
[2019-04-21] MEDS: LOVENOX SUBQ SCH (09:38)
[2019-04-21] MEDS: MELATONIN PO SCH (21:29)
[2019-04-21] MEDS ORDERED: HYDROCORTISONE 1% CREAM TOP PRN (23:11)
[2019-04-22] MEDS: PROTONIX PO SCH (06:47)
--- NOTE | 2019-04-22 09:04 | PROGRESS NOTE ---
DATE: 04/22/2019 SUBJECTIVE: Patient has no complaints. PHYSICAL EXAMINATION: Vital Signs: Reviewed. Temperature 97.6, degrees pulse 79, respiratory 18, blood pressure 95 systolic. General: Patient is lying in bed. She is awake, in no distress. Physical exam otherwise unchanged. ASSESSMENT AND PLAN: We will continue to await placement. No changes in her current expressive aphasia, cerebral palsy or hemiplegia. cc: Brian Hernandez MD
[2019-04-22] MEDS: CALTRATE 600 PO SCH (11:03)
[2019-04-22] MEDS: VALIUM PO SCH ×2 (11:03→21:44)
[2019-04-22] MEDS: FOLIC ACID PO SCH (11:03)
[2019-04-22] MEDS: VITAMIN B-1 PO SCH (11:03)
[2019-04-22] MEDS: ASPIRIN PO SCH (11:03)
[2019-04-22] MEDS: MIRALAX PO SCH (11:04)
[2019-04-22] MEDS: LOVENOX SUBQ SCH (11:04)
--- NOTE | 2019-04-22 19:09 | PROGRESS NOTE ---
DATE: 04/22/2019 SUBJECTIVE: Patient has no complaints. PHYSICAL: Vital signs reviewed. Temperature 98.2 degrees, pulse 84, respiratory 16, BP 125/84.General: Patient is awake, alert. She is in no distress. Neurologically she has actually improved some. She is able to move a little bit more than she was on admission. CV: Regular rate, no murmurs. Chest: Clear, nonlabored. Abdomen: Soft, nondistended. Extremities: Moves all extremities. ASSESSMENT: 1. Hemiplegia. 2. Cerebral palsy. 3. Persistent expressive aphasia although is improving and she is able to make some intelligible words and statements. PLAN: We will continue patient in the hospital, unbeknownst myself she has not actually been receiving physical therapy after physical therapy evaluated her 2 months ago and apparently has seemingly not been back. We will reconsult them as she is clearly improved since admission despite not having physical therapy. Will continue to await long-term placement. cc: Brian Hernandez MD
[2019-04-22] MEDS: NORCO-7.5 PO PRN (21:43)
[2019-04-22] MEDS: MELATONIN PO SCH (21:44)
[2019-04-23] MEDS: LOVENOX SUBQ SCH (09:05)
[2019-04-23] MEDS: VALIUM PO SCH ×2 (09:06→20:49)
[2019-04-23] MEDS: PROTONIX PO SCH (09:06)
[2019-04-23] MEDS: ASPIRIN PO SCH (09:06)
[2019-04-23] MEDS: VITAMIN B-1 PO SCH (09:06)
[2019-04-23] MEDS: FOLIC ACID PO SCH (09:06)
[2019-04-23] MEDS: CALTRATE 600 PO SCH (09:06)
[2019-04-23] MEDS: MIRALAX PO SCH (09:07)
--- NOTE | 2019-04-23 18:56 | PROGRESS NOTE ---
DATE: 04/23/2019 SUBJECTIVE: Patient is lying in bed with no complaints at this time. OBJECTIVE: Vitals: Temperature 97.4, heart rate 85, respiratory 16, blood pressure 103/61, O2 saturation 99% on room air. General: This is a chronically ill appearing 44-year-old female with cerebral palsy CV: Regular rate and rhythm. Respiratory exam: Clear to bilateral auscultation. No work of breathing female lying in bed in no acute distress. Cardiovascular: S1, S2 heard. No murmurs, gallops, or rubs. Regular rate and rhythm. Respiratory: Clear bilaterally to auscultation. No work of breathing or using accessory muscles. Abdomen: Soft, nontender to palpation. Bowel sounds present. No organomegaly. Extremities: No clubbing, cyanosis, or edema. Neurological exam: Patient with expressive aphasia. Right residual hemiparesis. ASSESSMENT AND PLAN: 1. Hemiplegia. 2. Cerebral palsy. 3. Persistent expressive aphasia. PLAN: At this point, will continue to monitor this patient. Still awaiting placement. Would restart Physical Therapy. cc: Heath Valadez MD MTDD
[2019-04-23] MEDS: NORCO-7.5 PO PRN (20:48)
[2019-04-23] MEDS: MELATONIN PO SCH (20:49)
[2019-04-24] MEDS: VALIUM PO SCH ×2 (08:52→21:00)
[2019-04-24] MEDS: VITAMIN B-1 PO SCH (08:52)
[2019-04-24] MEDS: CALTRATE 600 PO SCH (08:53)
[2019-04-24] MEDS: PROTONIX PO SCH (08:53)
[2019-04-24] MEDS: ASPIRIN PO SCH (08:53)
[2019-04-24] MEDS: MIRALAX PO SCH (08:54)
[2019-04-24] MEDS: FOLIC ACID PO SCH (08:54)
[2019-04-24] MEDS: LOVENOX SUBQ SCH ×2 (08:56→12:16)
--- NOTE | 2019-04-24 11:02 | PROGRESS NOTE ---
DATE: 04/24/2019 SUBJECTIVE: The patient reports feeling fine. She reports she started working again with physical therapy two days ago. No acute issues noted as per nursing staff overnight. OBJECTIVE: Vital Signs: Temperature 98.1 degrees, heart rate 81, respiratory rate 16, blood pressure 99/63, O2 saturation 95% on room air. General Examination: This is a chronically ill- appearing, 44-year-old, female lying in bed, in no acute distress. Cardiovascular Examination: S1 and S2 heard. No murmurs, gallops, or rubs. Regular rate and rhythm. Respiratory Examination: Clear bilaterally to auscultation. Abdomen: Soft, nontender to palpation. Bowel sounds present. No organomegaly. Neurological Examination: Patient with expressive aphasia that is getting better and right residual hemiplegia. ASSESSMENT: 1. Hemiplegia. 2. Cerebral palsy. 3. Persistent expressive aphasia. PLAN: We will continue with physical therapy for this patient and still awaiting for placement on this patient. cc: Heath Valadez MD
[2019-04-24] MEDS: MELATONIN PO SCH (21:00)
[2019-04-25] MEDS: PROTONIX PO SCH ×2 (09:24→09:25)
[2019-04-25] MEDS: ASPIRIN PO SCH (09:25)
[2019-04-25] MEDS: CALTRATE 600 PO SCH (09:25)
[2019-04-25] MEDS: VALIUM PO SCH ×2 (09:25→20:41)
[2019-04-25] MEDS: VITAMIN B-1 PO SCH (09:25)
[2019-04-25] MEDS: FOLIC ACID PO SCH (09:26)
[2019-04-25] MEDS: MIRALAX PO SCH (09:26)
[2019-04-25] MEDS: LOVENOX SUBQ SCH (09:26)
--- NOTE | 2019-04-25 15:36 | PROGRESS NOTE ---
DATE: 04/25/2019 SUBJECTIVE: Patient reports feeling fine. Reports working with physical therapy. No complaints at this time. OBJECTIVE: Vital Signs: Temperature 97.8, heart rate 72, respiratory rate 17, blood pressure 124/71, O2 saturation 96% on room air. General: This is a 44-year-old female with history of mental retardation lying in bed, in no acute distress. Cardiovascular: S1-S2 heard. No murmurs, gallops, or rubs. Regular rate and rhythm. Respiratory: Clear bilaterally to auscultation. No work of breathing or using accessory muscles. Neurological: Patient has expressive aphasia. That is getting better and residual right hemiplegia. ASSESSMENT: 1. Hemiplegia. 2. Cerebral palsy. 3. Persistent expressive aphasia that is getting better. PLAN: We will continue with physical therapy. Continue to wait for a rehab bed. cc: Heath Valadez MD
[2019-04-25] MEDS: MELATONIN PO SCH (20:41)
[2019-04-26] MEDS: LOVENOX SUBQ SCH (09:41)
[2019-04-26] MEDS: VALIUM PO SCH ×2 (09:42→20:54)
[2019-04-26] MEDS: VITAMIN B-1 PO SCH (09:42)
[2019-04-26] MEDS: PROTONIX PO SCH (09:42)
[2019-04-26] MEDS: CALTRATE 600 PO SCH (09:42)
[2019-04-26] MEDS: ASPIRIN PO SCH (09:42)
[2019-04-26] MEDS: FOLIC ACID PO SCH (09:43)
[2019-04-26] MEDS: MIRALAX PO SCH (09:46)
--- NOTE | 2019-04-26 11:39 | PROGRESS NOTE ---
DATE: 04/26/2019 SUBJECTIVE: Patient reports feeling fine. She reports Physical Therapy is working with her. No complaints at this time. OBJECTIVE: Vital Signs: Temperature 97.6 degrees, heart rate 75, respiratory rate 18, blood pressure 99/72, O2 saturation 99% on room air. General: This is a 44-year-old female with history of mental retardation, lying in bed, in no acute distress. Cardiovascular: S1, S2 heard. No murmurs, gallops, or rubs. Regular rate and rhythm. Respiratory: Clear bilaterally to auscultation. No work of breathing or using accessory muscles. Abdomen: A little bit distended but nontender to palpation. Bowel sounds present. No organomegaly. Neurological: Patient has expressive aphasia that is getting better. She has right residual hemiplegia. ASSESSMENT: 1. Hemiplegia. 2. Cerebral palsy. 3. Persistent expressive aphasia that is getting better. PLAN: Will continue with physical therapy. We will continue to wait for a rehab bed. cc: Heath Valadez MD
[2019-04-26] MEDS: MELATONIN PO SCH (20:54)
[2019-04-27] MEDS: LOVENOX SUBQ SCH (10:50)
[2019-04-27] MEDS: VALIUM PO SCH ×2 (10:51→19:59)
[2019-04-27] MEDS: VITAMIN B-1 PO SCH (10:52)
[2019-04-27] MEDS: FOLIC ACID PO SCH (10:52)
[2019-04-27] MEDS: PROTONIX PO SCH (10:52)
[2019-04-27] MEDS: MIRALAX PO SCH (10:52)
[2019-04-27] MEDS: ASPIRIN PO SCH (10:52)
[2019-04-27] MEDS: CALTRATE 600 PO SCH (10:52)
--- NOTE | 2019-04-27 11:11 | PROGRESS NOTE ---
DATE: 04/27/2019 SUBJECTIVE: Patient reports feeling fine. Working with Physical Therapy. No issues noted as per the nursing staff overnight. OBJECTIVE: Vitals: Temperature 97.7 degrees, heart rate 78, respiratory rate 16, blood pressure 123/85, O2 saturation 100% on room air. On general examination, this is a chronically ill-looking 44-year-old female with history of mental retardation, lying in bed, in no acute distress. Cardiovascular: S1, S2 heard. No murmurs, gallops, or rubs. Regular rate and rhythm. Respiratory: Clear bilaterally to auscultation. No work of breathing or using accessory muscles. Neurological: Patient has right residual hemiparesis and expressive aphasia. ASSESSMENT AND PLAN: 1. Cerebral palsy. 2. Hemiplegia. 3. Persistent expressive aphasia. At this point, we will continue with physical therapy and continue to wait for a rehabilitation bed for her. cc: Heath Valadez MD
[2019-04-27] MEDS: MELATONIN PO SCH (19:59)
[2019-04-28] MEDS: PROTONIX PO SCH (09:50)
[2019-04-28] MEDS: VALIUM PO SCH ×2 (09:50→23:45)
[2019-04-28] MEDS: CALTRATE 600 PO SCH (09:50)
[2019-04-28] MEDS: ASPIRIN PO SCH (09:50)
[2019-04-28] MEDS: MIRALAX PO SCH (09:51)
[2019-04-28] MEDS: VITAMIN B-1 PO SCH (09:51)
[2019-04-28] MEDS: FOLIC ACID PO SCH (09:51)
[2019-04-28] MEDS: LOVENOX SUBQ SCH (09:51)
--- NOTE | 2019-04-28 12:36 | PROGRESS NOTE ---
DATE: 04/28/2019 SUBJECTIVE: The patient reports feeling fine. I think her aphasia is better. OBJECTIVE: Vital signs: Temperature is 98.0, heart rate 99, respiratory rate 18, blood pressure 113/89, O2 saturation is 98% on room air. General: This is a chronically ill looking 44-year-old female with history of mental retardation, lying in bed, in no acute distress. Cardiovascular: S1, S2 heard. No murmurs, rubs or gallops. Regular rate and rhythm. Respiratory: Clear bilaterally to auscultation. No work of breathing. Not using accessory muscles. Neurologic: The patient has a right residual hemiparesis and expressive aphasia. ASSESSMENT: 1. Cerebral palsy. 2. Right hemiplegia. 3. Persistent expressive aphasia. PLAN: At this point, we will continue providing physical therapy for this patient and awaiting rehabilitation bed for her. cc: Heath Valadez MD
[2019-04-28] MEDS: MELATONIN PO SCH (23:45)
[2019-04-29] MEDS: ASPIRIN PO SCH (09:50)
[2019-04-29] MEDS: VITAMIN B-1 PO SCH (09:50)
[2019-04-29] MEDS: LOVENOX SUBQ SCH (09:50)
[2019-04-29] MEDS: MIRALAX PO SCH (09:51)
[2019-04-29] MEDS: CALTRATE 600 PO SCH (09:51)
[2019-04-29] MEDS: VALIUM PO SCH ×2 (09:51→21:24)
[2019-04-29] MEDS: PROTONIX PO SCH (09:51)
[2019-04-29] MEDS: FOLIC ACID PO SCH (09:52)
--- NOTE | 2019-04-29 10:03 | PROGRESS NOTE ---
DATE: 04/29/2019 SUBJECTIVE: No complaints at this time. Reports Physical Therapy is working with her. No acute issues noted as per nursing staff overnight. OBJECTIVE: Vital Signs: Temperature 97.7 degrees, heart rate 81, respiratory rate 18, blood pressure 129/99, O2 saturation 100% on room air. General: This is a chronically ill-appearing, 44-year-old, female with a history of mental retardation and previous CVA, lying in bed in no acute distress. Cardiovascular: S1, S2 heard. No murmurs, gallops, or rubs. Regular rate and rhythm. Respiratory: Clear bilaterally to auscultation. No work of breathing or using accessory muscles. Neurological: The patient continues to have a right residual hemiparesis and expressive aphasia. ASSESSMENT: 1. Cerebral palsy. 2. Right hemiplegia. 3. Persistent expressive aphasia. PLAN: Will continue with physical therapy. Will continue to wait for placement for this patient. cc: Heath Valadez MD
[2019-04-29] MEDS: MELATONIN PO SCH (21:24)
[2019-04-30] MEDS: VALIUM PO SCH ×2 (09:14→22:17)
[2019-04-30] MEDS: VITAMIN B-1 PO SCH (09:14)
[2019-04-30] MEDS: PROTONIX PO SCH (09:14)
[2019-04-30] MEDS: ASPIRIN PO SCH (09:14)
[2019-04-30] MEDS: CALTRATE 600 PO SCH (09:14)
[2019-04-30] MEDS: LOVENOX SUBQ SCH (09:14)
[2019-04-30] MEDS: MIRALAX PO SCH (09:15)
[2019-04-30] MEDS: FOLIC ACID PO SCH (09:15)
--- NOTE | 2019-04-30 20:22 | PROGRESS NOTE ---
DATE: 04/30/2019 SUBJECTIVE: Patient overall has no new complaints. She has been able to participate somewhat with physical therapy recently. PHYSICAL EXAMINATION: Vital signs: Temp 98, pulse 105, respiratory rate 18, BP 109/76. General: Patient is in no distress. She has had mild clinical improvement. She is awake at times. She does answer questions at times, which is an improvement. She has a little bit more movement of her left side. ASSESSMENT: 1. Cerebral palsy. 2. Right-sided hemiplegia. 3. Expressive aphasia from recent cerebrovascular accident. 4. Adult failure to thrive. PLAN: We will continue patient in the hospital. Continue physical therapy. Continue supportive care. Further orders as needed. cc: Brian Hernandez MD
[2019-04-30] MEDS: MELATONIN PO SCH (22:17)
[2019-05-01] MEDS: CALTRATE 600 PO SCH (08:12)
[2019-05-01] MEDS: VALIUM PO SCH ×2 (08:12→20:06)
[2019-05-01] MEDS: ASPIRIN PO SCH (08:12)
[2019-05-01] MEDS: VITAMIN B-1 PO SCH (08:12)
[2019-05-01] MEDS: FOLIC ACID PO SCH (08:13)
[2019-05-01] MEDS: PROTONIX PO SCH (08:13)
[2019-05-01] MEDS: MIRALAX PO SCH (08:14)
[2019-05-01] MEDS: LOVENOX SUBQ SCH (10:57)
[2019-05-01] MEDS: MELATONIN PO SCH (20:06)
--- NOTE | 2019-05-01 23:24 | PROGRESS NOTE ---
DATE: 05/01/2019 SUBJECTIVE: Patient is sleeping. She is easily awakened. OBJECTIVE: Vital Signs: Reviewed. Temperature 97 degrees, pulse 102, respiratory 18, BP 91/72. General: Patient is in no distress. She is lying in the bed, easily awakened. Physical exam is unchanged. ASSESSMENT: 1. Cerebral palsy. 2. Right hemiplegia. 3. Persistent expressive aphasia from recent cerebrovascular accident. 4. Adult failure to thrive. PLAN: We will continue patient in the hospital until discharge plans can be made. cc: Brian Hernandez MD
[2019-05-02] MEDS: PROTONIX PO SCH ×2 (06:03→06:33)
[2019-05-02] MEDS: LOVENOX SUBQ SCH (09:56)
[2019-05-02] MEDS: CALTRATE 600 PO SCH (09:56)
[2019-05-02] MEDS: VITAMIN B-1 PO SCH (09:56)
[2019-05-02] MEDS: ASPIRIN PO SCH (09:56)
[2019-05-02] MEDS: FOLIC ACID PO SCH (09:56)
[2019-05-02] MEDS: VALIUM PO SCH ×2 (09:56→20:56)
[2019-05-02] MEDS: MIRALAX PO SCH (09:57)
[2019-05-02] MEDS: MELATONIN PO SCH (20:56)
--- NOTE | 2019-05-02 22:42 | PROGRESS NOTE ---
DATE: 05/02/2019 SUBJECTIVE: Patient has no new complaints. PHYSICAL EXAMINATION: Vital Signs: Reviewed. Temp 98 degrees, pulse 100, respiratory 20, BP 99/72. Physical Exam: Unchanged. ASSESSMENT: 1. Cerebral palsy. 2. Hemiplegia. 3. Persistent expressive aphasia. PLAN: We will continue patient in the hospital until she can be transferred to long-term care. cc: Brian Hernandez MD
[2019-05-03] MEDS: CALTRATE 600 PO SCH (10:19)
[2019-05-03] MEDS: MIRALAX PO SCH (10:19)
[2019-05-03] MEDS: LOVENOX SUBQ SCH (10:19)
[2019-05-03] MEDS: VITAMIN B-1 PO SCH (10:19)
[2019-05-03] MEDS: ASPIRIN PO SCH (10:20)
[2019-05-03] MEDS: VALIUM PO SCH ×2 (10:20→20:19)
[2019-05-03] MEDS: FOLIC ACID PO SCH (10:20)
[2019-05-03] MEDS: PROTONIX PO SCH (10:20)
--- NOTE | 2019-05-03 14:30 | PROGRESS NOTE ---
DATE: 05/03/2019 SUBJECTIVE: Patient has no complaints. PHYSICAL EXAMINATION: Vital Signs: Reviewed and stable. General: Unchanged. ASSESSMENT: 1. Cerebral palsy. 2. Right hemiplegia. 3. Persistent expressive aphasia. PLAN: We will continue symptomatic care until she can transition to long-term placement. cc: Brian Hernandez MD
[2019-05-03] MEDS: MELATONIN PO SCH (20:19)
[2019-05-04] MEDS: MIRALAX PO SCH (08:46)
[2019-05-04] MEDS: VITAMIN B-1 PO SCH (08:47)
[2019-05-04] MEDS: FOLIC ACID PO SCH (08:47)
[2019-05-04] MEDS: CALTRATE 600 PO SCH (08:47)
[2019-05-04] MEDS: ASPIRIN PO SCH (08:47)
[2019-05-04] MEDS: PROTONIX PO SCH (08:47)
[2019-05-04] MEDS: LOVENOX SUBQ SCH ×2 (08:47→11:47)
[2019-05-04] MEDS: DIFLUCAN PO SCH (13:19)
[2019-05-04] MEDS: VALIUM PO SCH ×2 (13:19→21:00)
[2019-05-04] MEDS: MELATONIN PO SCH (21:00)
[2019-05-05] MEDS: PROTONIX PO SCH (08:44)
[2019-05-05] MEDS: CALTRATE 600 PO SCH (08:44)
[2019-05-05] MEDS: VITAMIN B-1 PO SCH (08:44)
[2019-05-05] MEDS: FOLIC ACID PO SCH (08:44)
[2019-05-05] MEDS: ASPIRIN PO SCH (08:45)
[2019-05-05] MEDS: DIFLUCAN PO SCH (08:45)
[2019-05-05] MEDS: VALIUM PO SCH ×2 (08:45→21:17)
[2019-05-05] MEDS: LOVENOX SUBQ SCH ×2 (08:45→12:23)
[2019-05-05] MEDS: MIRALAX PO SCH (08:47)
--- NOTE | 2019-05-05 14:10 | PROGRESS NOTE ---
DATE: 05/05/2019 SUBJECTIVE: The patient with no complaints. PHYSICAL EXAMINATION: Vital Signs: Reviewed. Temperature 97.0 degrees, pulse 74, respiratory rate 18, BP 129/74. General: Patient is lying in bed. She is improving, although slowly. Physical exam otherwise is unchanged. ASSESSMENT: 1. Cerebral palsy. 2. Right hemiplegia. 3. Expressive aphasia. PLAN: We will continue patient in the hospital until final discharge plans can be made. cc: Brian Hernandez MD
[2019-05-05] MEDS: MELATONIN PO SCH (21:16)
[2019-05-06] MEDS: FOLIC ACID PO SCH (09:03)
[2019-05-06] MEDS: VITAMIN B-1 PO SCH (09:03)
[2019-05-06] MEDS: LOVENOX SUBQ SCH (09:03)
[2019-05-06] MEDS: PROTONIX PO SCH (09:03)
[2019-05-06] MEDS: ASPIRIN PO SCH (09:03)
[2019-05-06] MEDS: DIFLUCAN PO SCH (09:04)
[2019-05-06] MEDS: CALTRATE 600 PO SCH (09:04)
[2019-05-06] MEDS: VALIUM PO SCH ×2 (09:04→21:05)
[2019-05-06] MEDS: MIRALAX PO SCH (09:11)
[2019-05-06] MEDS: NORCO-7.5 PO PRN (21:05)
[2019-05-06] MEDS: MELATONIN PO SCH (21:05)
[2019-05-06] MEDS: ZOFRAN ODT PO PRN (21:05)
--- NOTE | 2019-05-06 21:24 | PROGRESS NOTE ---
DATE: 05/06/2019 SUBJECTIVE: Patient has no complaints. PHYSICAL EXAMINATION: Vital Signs: Reviewed. She is afebrile. Blood pressure stable 87 to 110 systolic. Physical exam is unchanged. ASSESSMENT: 1. Cerebral palsy. 2. Right hemiplegia. 3. Persistent expressive aphasia. 4. Poor social situation. PLAN: We will continue patient the hospital. Will treat symptomatically. Continue to follow. Hopefully she can transition to rehab eventually. cc: Brian Hernandez MD
[2019-05-07] MEDS: LOVENOX SUBQ SCH (10:12)
[2019-05-07] MEDS: PROTONIX PO SCH (10:12)
[2019-05-07] MEDS: VITAMIN B-1 PO SCH (10:12)
[2019-05-07] MEDS: ASPIRIN PO SCH (10:13)
[2019-05-07] MEDS: DIFLUCAN PO SCH (10:13)
[2019-05-07] MEDS: FOLIC ACID PO SCH (10:13)
[2019-05-07] MEDS: CALTRATE 600 PO SCH (10:13)
[2019-05-07] MEDS: VALIUM PO SCH ×2 (10:13→22:12)
[2019-05-07] MEDS: MIRALAX PO SCH (10:13)
[2019-05-07] MEDS: NORCO-7.5 PO PRN ×2 (15:10→22:12)
[2019-05-07] MEDS: MELATONIN PO SCH (22:13)
[2019-05-08] MEDS: FOLIC ACID PO SCH (10:22)
[2019-05-08] MEDS: VITAMIN B-1 PO SCH (10:23)
[2019-05-08] MEDS: MIRALAX PO SCH (10:24)
[2019-05-08] MEDS: VALIUM PO SCH ×2 (10:24→22:03)
[2019-05-08] MEDS: ASPIRIN PO SCH (10:24)
[2019-05-08] MEDS: CALTRATE 600 PO SCH (10:24)
[2019-05-08] MEDS: PROTONIX PO SCH (10:24)
[2019-05-08] MEDS: DIFLUCAN PO SCH (10:24)
[2019-05-08] MEDS: LOVENOX SUBQ SCH (10:24)
[2019-05-08] MEDS: MELATONIN PO SCH (22:03)
[2019-05-09] MEDS: VALIUM PO SCH ×2 (09:59→21:20)
[2019-05-09] MEDS: VITAMIN B-1 PO SCH (09:59)
[2019-05-09] MEDS: DIFLUCAN PO SCH (09:59)
[2019-05-09] MEDS: PROTONIX PO SCH (09:59)
[2019-05-09] MEDS: ASPIRIN PO SCH (10:00)
[2019-05-09] MEDS: CALTRATE 600 PO SCH ×2 (10:00→11:25)
[2019-05-09] MEDS: FOLIC ACID PO SCH (10:00)
[2019-05-09] MEDS: LOVENOX SUBQ SCH (10:00)
[2019-05-09] MEDS: MIRALAX PO SCH (10:06)
[2019-05-09] MEDS: MOTRIN PO PRN (10:19)
--- NOTE | 2019-05-09 15:30 | PROGRESS NOTE ---
DATE: 05/07/2019 SUBJECTIVE: The patient has no major complaints. OBJECTIVE: Vital signs: Blood pressure is 97/73, heart rate 81, respiratory rate of 18, temperature 97.9, 94% on room air. Cardiovascular: Regular rate and rhythm. Pulmonary: Bilateral breath sounds clear to auscultation. Gastrointestinal: Soft, nontender, nondistended, bowel sounds are positive. LABORATORY DATA: No new data. PROBLEM: Severe cerebral palsy with right hemiplegia and expressive aphasia. We will continue to monitor. Apparently not doing too much actively for her. 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 Anticipate discharge when we can settle her social situation for a long-term placement, which is still a major issue. cc: Johnny Franco MD
[2019-05-09] MEDS: MELATONIN PO SCH (21:20)
[2019-05-10] MEDS: ASPIRIN PO SCH (08:35)
[2019-05-10] MEDS: DIFLUCAN PO SCH (08:35)
[2019-05-10] MEDS: LOVENOX SUBQ SCH ×2 (08:35→11:38)
[2019-05-10] MEDS: VALIUM PO SCH ×2 (08:35→20:31)
[2019-05-10] MEDS: FOLIC ACID PO SCH (08:35)
[2019-05-10] MEDS: PROTONIX PO SCH (08:35)
[2019-05-10] MEDS: CALTRATE 600 PO SCH (08:36)
[2019-05-10] MEDS: MIRALAX PO SCH (08:36)
[2019-05-10] MEDS: VITAMIN B-1 PO SCH (08:36)
--- NOTE | 2019-05-10 19:53 | PROGRESS NOTE ---
DATE: 05/10/2019 SUBJECTIVE: Patient has no major complaints. Seems to be doing okay. OBJECTIVE: Blood pressure is 123/83, heart rate 63, respiratory rate 17, temperature 97.9 degrees. Cardiovascular: Regular rate and rhythm. Pulmonary: Bilateral breath sounds clear to auscultation. GI: Was soft, nontender, nondistended. Bowel sounds are positive. Extremities: Have no clubbing or cyanosis. Lymphatic: No peripheral edema. Neurological: Nonfocal except for right-sided weakness. LABORATORY: No new laboratory data. PROBLEM LIST: Cerebral palsy, right hemiplegia, expressive aphasia, unable to take care of herself. No major issues at this point. She seems to be doing okay. Anticipate discharge once her long-term ability is decided now. Fortunately, her Medicaid I think has been approved and we are awaiting I think at this point her state evaluation and we will continue to monitor closely. cc: Johnny Franco MD
[2019-05-10] MEDS: MELATONIN PO SCH (20:31)
[2019-05-11] MEDS: PROTONIX PO SCH (06:44)
[2019-05-11] MEDS: CALTRATE 600 PO SCH (09:28)
[2019-05-11] MEDS: FOLIC ACID PO SCH (09:28)
[2019-05-11] MEDS: LOVENOX SUBQ SCH (09:28)
[2019-05-11] MEDS: ASPIRIN PO SCH (09:28)
[2019-05-11] MEDS: VITAMIN B-1 PO SCH (09:28)
[2019-05-11] MEDS: DIFLUCAN PO SCH (09:28)
[2019-05-11] MEDS: VALIUM PO SCH ×2 (09:28→20:47)
[2019-05-11] MEDS: MIRALAX PO SCH (09:32)
--- NOTE | 2019-05-11 18:36 | PROGRESS NOTE ---
DATE: 05/11/2019 SUBJECTIVE: Patient has no major complaints. She is lying in bed. OBJECTIVE: Vital Signs: Blood pressure is 119/77, heart rate 92, respiratory rate 18, temperature 97.8 degrees, 97% on room air. Cardiovascular: Regular rate and rhythm. Pulmonary: Bilateral breath sounds clear to auscultation. GI: Soft, nontender, and nondistended. Bowel sounds are positive. LABORATORY DATA: White count 7.9, hemoglobin and hematocrit 9 and 29, platelets 371,000. Basic was normal. Those are labs from March. PROBLEM LIST: 1. Cerebral palsy history. 2. Right hemiplegia. 3. Aphasia. We will continue supportive care. I think she has qualified for Medicaid. The [facility] is coming, but she has an on site visit, I am assuming from the State, and that will be on 05/18/2019, and then after that we can proceed toward placement fortunately. cc: Johnny Franco MD
[2019-05-11] MEDS: MELATONIN PO SCH (20:48)
[2019-05-12] MEDS: VITAMIN B-1 PO SCH (10:01)
[2019-05-12] MEDS: CALTRATE 600 PO SCH (10:01)
[2019-05-12] MEDS: LOVENOX SUBQ SCH (10:01)
[2019-05-12] MEDS: PROTONIX PO SCH (10:01)
[2019-05-12] MEDS: VALIUM PO SCH ×2 (10:01→21:41)
[2019-05-12] MEDS: DIFLUCAN PO SCH (10:02)
[2019-05-12] MEDS: FOLIC ACID PO SCH (10:02)
[2019-05-12] MEDS: ASPIRIN PO SCH (10:02)
[2019-05-12] MEDS: MIRALAX PO SCH (10:07)
--- NOTE | 2019-05-12 20:28 | PROGRESS NOTE ---
DATE: 05/12/2019 SUBJECTIVE: Patient has no major complaints. OBJECTIVE: Blood pressure 119/83, heart rate 88, respiratory 18, temperature 97.8 degrees, 100% on room air.Cardiovascular: Regular rate and rhythm. Pulmonary: Bilateral breath sounds clear to auscultation. GI: Soft, nontender, nondistended. Bowel sounds are positive. LABORATORY DATA: White count 7.9, hemoglobin and hematocrit 9, 29, platelets 371,000. Basic was normal. PROBLEM LIST: Cerebral palsy history of, right hemiplegia, status post cerebrovascular accident, expressive aphasia. She is unable to take care of herself accordingly so we are looking at treatment long-term facility. We are almost at that point, once the state complete its assessment then we should be doing well there. cc: Johnny Franco MD
[2019-05-12] MEDS: MELATONIN PO SCH (21:41)
[2019-05-12] MEDS: NORCO-7.5 PO PRN (23:18)
[2019-05-13] MEDS: DIFLUCAN PO SCH (10:28)
[2019-05-13] MEDS: VALIUM PO SCH ×2 (10:28→20:44)
[2019-05-13] MEDS: FOLIC ACID PO SCH (10:28)
[2019-05-13] MEDS: VITAMIN B-1 PO SCH (10:28)
[2019-05-13] MEDS: ASPIRIN PO SCH (10:28)
[2019-05-13] MEDS: PROTONIX PO SCH (10:28)
[2019-05-13] MEDS: CALTRATE 600 PO SCH (10:28)
[2019-05-13] MEDS: MIRALAX PO SCH (10:29)
[2019-05-13] MEDS: LOVENOX SUBQ SCH (10:29)
--- NOTE | 2019-05-13 16:19 | PROGRESS NOTE ---
DATE: 05/13/2019 SUBJECTIVE: The patient has no complaints. OBJECTIVE: Blood pressure 94/68, heart rate of 78, respiratory rate 18, temperature 97.8 degrees, 97% on room air.Cardiovascular: Regular rate and rhythm. Pulmonary: Bilateral breath sounds clear to auscultation. Gastrointestinal: Soft, nontender, nondistended. Bowel sounds are positive. DIAGNOSTIC STUDIES: White count 7, hemoglobin 9, hematocrit 29, platelets 371,000. Basic is normal. These are not new labs. ASSESSMENT AND PLAN: 1. Cerebral palsy. 2. Hemiplegia. 3. Cerebrovascular accident. 4. Expressive aphasia. She is doing well. Continue with PT and OT. She seems to be doing well. Plan is we are waiting on a state assessment and then possibly transfer when she has stabilized. cc: Johnny Franco MD
[2019-05-13] MEDS: MELATONIN PO SCH (20:44)
[2019-05-14] MEDS: PROTONIX PO SCH (06:29)
[2019-05-14] MEDS: LOVENOX SUBQ SCH (09:43)
[2019-05-14] MEDS: ASPIRIN PO SCH (09:43)
[2019-05-14] MEDS: CALTRATE 600 PO SCH (09:43)
[2019-05-14] MEDS: DIFLUCAN PO SCH (09:43)
[2019-05-14] MEDS: FOLIC ACID PO SCH (09:43)
[2019-05-14] MEDS: VITAMIN B-1 PO SCH (09:43)
[2019-05-14] MEDS: VALIUM PO SCH ×2 (09:43→20:50)
[2019-05-14] MEDS: MIRALAX PO SCH (09:44)
[2019-05-14] MEDS: MELATONIN PO SCH (20:50)
[2019-05-14] MEDS: IMODIUM PO PRN (20:53)
--- NOTE | 2019-05-15 05:15 | PROGRESS NOTE ---
DATE: 05/14/2019 SUBJECTIVE: Patient without any complaints. PHYSICAL EXAMINATION: Vital Signs: Reviewed and stable. Patient is awake and alert. She is in no distress. ASSESSMENT: 1. Cerebral palsy. 2. Hemiplegia. 3. Cerebrovascular accident. 4. Expressive aphasia. PLAN: Overall, patient is doing well. She is continuing to improve as we await transfer. cc: Brian Hernandez MD
[2019-05-15] MEDS: PROTONIX PO SCH (06:31)
[2019-05-15] MEDS: VITAMIN B-1 PO SCH (09:48)
[2019-05-15] MEDS: LOVENOX SUBQ SCH (09:48)
[2019-05-15] MEDS: DIFLUCAN PO SCH (09:48)
[2019-05-15] MEDS: VALIUM PO SCH ×2 (09:49→20:28)
[2019-05-15] MEDS: ASPIRIN PO SCH (09:49)
[2019-05-15] MEDS: FOLIC ACID PO SCH (09:49)
[2019-05-15] MEDS: CALTRATE 600 PO SCH (09:49)
[2019-05-15] MEDS: MIRALAX PO SCH (09:49)
[2019-05-15] MEDS: MELATONIN PO SCH (20:28)
--- NOTE | 2019-05-16 00:28 | PROGRESS NOTE ---
DATE: 05/15/2019 SUBJECTIVE: Patient has no complaints. She is lying in bed, attempting to read. OBJECTIVE: Vital signs: Temperature 97 degrees, pulse 69 to 144, expect this was due to agitation, respiratory 20, BP 138/61. General: Patient is awake, currently in no distress. HEENT: Normocephalic. Neck: Supple. Cardiovascular: Regular rate currently. No wheezing. Abdomen: Soft, nondistended. Extremities: Moves all extremities. No edema. Neurologic: No focal changes, although she does continue to slightly improve. ASSESSMENT: 1. Cerebral palsy. 2. Hemiplegia. 3. Cerebrovascular accident. 4. Expressive aphasia. PLAN: We will continue patient in the hospital. cc: Brian Hernandez MD
[2019-05-16] MEDS: PROTONIX PO SCH (06:31)
[2019-05-16] MEDS: ASPIRIN PO SCH (10:49)
[2019-05-16] MEDS: VITAMIN B-1 PO SCH (10:49)
[2019-05-16] MEDS: LOVENOX SUBQ SCH (10:49)
[2019-05-16] MEDS: VALIUM PO SCH ×2 (10:49→21:39)
[2019-05-16] MEDS: FOLIC ACID PO SCH (10:49)
[2019-05-16] MEDS: CALTRATE 600 PO SCH (10:49)
[2019-05-16] MEDS: DIFLUCAN PO SCH (10:49)
[2019-05-16] MEDS: MIRALAX PO SCH (10:49)
[2019-05-16] MEDS: MELATONIN PO SCH (21:39)
--- NOTE | 2019-05-17 04:03 | PROGRESS NOTE ---
DATE: 05/16/2019 SUBJECTIVE: Patient has no complaints. OBJECTIVE: Vital Signs: Reviewed, stable. Physical exam is unchanged. ASSESSMENT AND PLAN: We will continue patient in the hospital, continue to follow. We will treat symptomatically. Going to rehab when bed is available. cc: Brian Hernandez MD
[2019-05-17] MEDS: PROTONIX PO SCH (06:34)
[2019-05-17] MEDS: ASPIRIN PO SCH (10:07)
[2019-05-17] MEDS: CALTRATE 600 PO SCH (10:07)
[2019-05-17] MEDS: FOLIC ACID PO SCH (10:07)
[2019-05-17] MEDS: VALIUM PO SCH ×2 (10:07→21:07)
[2019-05-17] MEDS: VITAMIN B-1 PO SCH (10:07)
[2019-05-17] MEDS: MIRALAX PO SCH (10:07)
[2019-05-17] MEDS: MELATONIN PO SCH (21:07)
--- NOTE | 2019-05-18 00:10 | PROGRESS NOTE ---
DATE: 05/17/2019 SUBJECTIVE: No complaints. PHYSICAL EXAMINATION: General: No changes. Vital Signs: Stable and reviewed. BP 101/68, pulse 107. Is afebrile. ASSESSMENT: 1. Cerebral palsy. 2. Hemiplegia. 3. Cerebrovascular accident causing expressive aphasia. PLAN: We will continue patient in the hospital until transfer to long-term facility can be arranged. cc: Brian Hernandez MD
[2019-05-18] MEDS: PROTONIX PO SCH (06:30)
[2019-05-18] MEDS: FOLIC ACID PO SCH (09:58)
[2019-05-18] MEDS: MIRALAX PO SCH (09:58)
[2019-05-18] MEDS: ASPIRIN PO SCH (09:58)
[2019-05-18] MEDS: VITAMIN B-1 PO SCH (09:58)
[2019-05-18] MEDS: CALTRATE 600 PO SCH (09:58)
[2019-05-18] MEDS: VALIUM PO SCH ×2 (09:58→20:48)
[2019-05-18] MEDS: MELATONIN PO SCH (20:48)
--- NOTE | 2019-05-19 00:19 | PROGRESS NOTE ---
DATE: 05/18/2019 SUBJECTIVE: No complaints. PHYSICAL EXAMINATION: No changes. Vital signs stable, no changes. ASSESSMENT: 1. Cerebral palsy. 2. Hemiplegia. 3. Cerebrovascular accident. 4. Expressive aphasia. 5. Adult failure to thrive. 6. Generalized weakness. PLAN: We will continue hospitalization until long-term transition care can be made. cc: Biran Hernandez MD
[2019-05-19] MEDS: PROTONIX PO SCH (06:33)
[2019-05-19] MEDS: ASPIRIN PO SCH (09:32)
[2019-05-19] MEDS: VALIUM PO SCH ×2 (09:32→21:34)
[2019-05-19] MEDS: CALTRATE 600 PO SCH (09:32)
[2019-05-19] MEDS: VITAMIN B-1 PO SCH (09:32)
[2019-05-19] MEDS: MIRALAX PO SCH (09:32)
[2019-05-19] MEDS: FOLIC ACID PO SCH (09:32)
--- NOTE | 2019-05-19 19:55 | PROGRESS NOTE ---
DATE: 05/19/2019 SUBJECTIVE: Patient seen. No complaints. OBJECTIVE: Physical exam is unchanged. Vital signs are stable. ASSESSMENT: 1. Cerebral palsy. 2. Hemiplegia. 3. Cerebrovascular accident with expressive aphasia. PLAN: Continue intermittent physical therapy. Continue supportive care until she can transition to long-term care. cc: Brian Hernandez MD
[2019-05-19] MEDS: MELATONIN PO SCH (21:34)
[2019-05-20] MEDS: MIRALAX PO SCH (08:49)
[2019-05-20] MEDS: FOLIC ACID PO SCH (08:49)
[2019-05-20] MEDS: CALTRATE 600 PO SCH (08:49)
[2019-05-20] MEDS: VITAMIN B-1 PO SCH (08:49)
[2019-05-20] MEDS: VALIUM PO SCH ×2 (08:49→20:41)
[2019-05-20] MEDS: PROTONIX PO SCH (08:49)
[2019-05-20] MEDS: ASPIRIN PO SCH (08:49)
[2019-05-20] MEDS: MELATONIN PO SCH (20:41)
--- NOTE | 2019-05-21 01:57 | PROGRESS NOTE ---
DATE: 05/20/2019 SUBJECTIVE: Patient without complaints. PHYSICAL EXAMINATION: Vital Signs: Reviewed. She is afebrile. Pulse 80s. Blood pressure stable. Physical exam unchanged. She has continued to slowly increase her movement since admission. Speech is actually improved at times as well. We will continue to follow until she can transition to long-term care. ASSESSMENT AND PLAN: 1. Cerebral palsy. 2. Hemiplegia. 3. Cerebrovascular accident. 4. Expressive aphasia. We will continue patient in the hospital. We will consider rechecking her urine culture to ensure that this remains negative. Further orders as needed. cc: Brian Hernandez MD
[2019-05-21 08:07] VITALS: BP 118/68
[2019-05-21] MEDS: VALIUM PO SCH (08:52)
[2019-05-21] MEDS: FOLIC ACID PO SCH (08:52)
[2019-05-21] MEDS: CALTRATE 600 PO SCH (08:52)
[2019-05-21] MEDS: VITAMIN B-1 PO SCH (08:52)
[2019-05-21] MEDS: PROTONIX PO SCH (08:52)
[2019-05-21] MEDS: ASPIRIN PO SCH (08:52)
[2019-05-21] MEDS: MIRALAX PO SCH (08:53)
--- NOTE | 2019-05-21 11:33 | DISCHARGE SUMMARY ---
ADMISSION DATE: 01/29/2019 DISCHARGE DATE: 05/21/2019 PRIMARY CARE PROVIDER: KORINA Nelson ADMISSION DIAGNOSES: 1. A right upper extremity cellulitis. 2. Leukocytosis. 3. Rule out deep vein thrombosis of the right lower extremity. 4. A history of stroke, which affected her right side. DISCHARGE DIAGNOSES: 1. Cerebral palsy. 2. Hemiplegia. 3. Cerebrovascular accident. 4. Expressive aphasia. SUMMARY OF FINDINGS: This is a 44-year-old female who presented to the ER with a several-day history of swelling and pain in her right upper extremity and right lower extremity. States that the right leg does stay more swollen than her left and was more swollen than usual. She was found on arrival to be tachycardic with a heart rate of 150. She was noted to have leukocytosis with a white count of 17.74. Her D-dimer was mildly elevated at 0.99. They performed a venous Doppler on the right upper extremity, and it was reported negative for DVT. She had warmth, swelling, pain, and slight erythema to her right upper extremity and swelling, pain, and tenderness to her right lower extremity. She was admitted, placed on IV antibiotics, and ruled out for her DVT of the right lower extremity. She was noted also on her urine culture to have a Staphylococcus epidermidis. Her blood culture showed no growth. She had Physical Therapy following her. Also has kidney stones with hydronephrosis that Urology took care of it. By now all medical conditions has resolved and going to rehab facility today. DISPOSITION: The reason for delay in her discharge has been obtaining financial support. It is noted that, this past Tuesday, ORIANA visited the patient and approved her to go to [facility]. It is felt that she can safely be discharged there today in stable condition. DISCHARGE MEDICATIONS: Aspirin 81 mg p.o. daily. Calcium 600 mg p.o. daily. Valium 5 mg p.o. at bedtime. [place] 7.5 one p.o. q.6 h. p.r.n. Loperamide 2 mg p.o. p.r.n. Melatonin 3 mg p.o. at bedtime. Zofran ODT 4 mg p.o. q.4 h. P.r.n. MiraLAX 17 g p.o. daily. Multivitamin p.o. daily. FOLLOW-UP: She will follow up with in-house facility physician during her rehabilitation stay and follow back up with her primary care physician once she has completed her rehabilitation stay. COORDINATION TIME: This is a 35 minute discharge. Dictated by KORINA Sharpe for Heath Valadez MD Addendum: Patient seen and examined by myself. Agree with KORINA note. It reflects my assessment and plan. Patient is being discharged from hospital in stable condition. Will be sent to rehab facility. cc: KORINA Sharpe MD Lori Henry, CRNP [facility]Nick
--- NOTE | 2019-05-21 12:42 | Diag Imaging Result Doc PS360 ---
EXAM: CHEST-PORTABLE HISTORY: rehab placement TECHNIQUE: Portable chest single view COMPARISON: None. FINDINGS: The lungs are well expanded. The heart is not enlarged. The vessels are not distended. There are no infiltrates. No effusion identified. IMPRESSION: No acute abnormality. Electronically signed by Sebastian Vazquez 05/21/2019 12:40 PM
== END 2019-05-21 13:57 | DRG 982 ==
LOC: ED 16:29 → SUATTDRO 01-29 07:39 → EDIPHOLD 01-29 07:39 → 3N 01-29 10:09 → P.MEDSURG 02-09 17:38 → 3N 03-05 16:50 → P.MEDSURG 03-16 15:38
PROVIDERS: ATTEND Internal Medicine
CPT/HCPCS: 51701; 71010; 71045; 73201; 74177; 74420; 80048; 80053; 80061; 80202; 81001; 82360; 82550; 82948; 83605; 83735; 84100; 85025; 85027; 85379; 85610; 85730; 87040; 87077; 87088; 87186; 87324; 88300; 93005; 93010; 93970; 93971; 94761; 94799; 96361; 96365; 96366; 96372; 96375; 96376; 97110; 97112; 97161; 97163; 97165; 97167; 97168; 97530; 97535; 99285; A9270; C9113; J1100; J1170; J1650; J1956; J2250; J2270; J2405; J3370; J3475; J7030; J7040; J7050; P9612; Q9966; Q9967; S0077; S0164; XXXXX